=== PATIENT | male | born 1945 | race Caucasian/White ===

== ENCOUNTER → 2022-03-12 15:31 | Outpatient (BNVA) | payer MEDICARE, BC, SELFPAY | PROVIDERS: PCP Internal Medicine; Visit Provider Urology | DX: C67.9 Malignant neoplasm of bladder, unspecified (principal); N39.0 Urinary tract infection, site not specified; Z90.6 Acquired absence of other parts of urinary tract; Z09 Encounter for follow-up examination after completed treatment for conditions other than malignant neoplasm; F17.210 Nicotine dependence, cigarettes, uncomplicated | CPT/HCPCS: 99212 ==

== ENCOUNTER 2023-03-10 10:40 | Outpatient (AMB) | payer MEDICARE, BC, SELFPAY ==
--- NOTE | 2023-03-10 10:42 | A.OFFVIS_ITS ---
Intake Intake Visit Reasons: one year follow up Intake Note: Patient presents today for a 1 year follow-up: Meds- None Allergies to Antibiotic- No Known Allergies Blood Thinner- None Knot Tier Required: No Accompanied by: Self / Same As Patient Allergies No Known Allergies Allergy (Verified 03/10/23 10:43) HPI HPI Comments History of Present Illness Details Jose D is a very pleasant male. He is a patient of Dr. Horan. He is seen for the following urologic conditions - bladder cancer - recurrent pyelonephritis Yearly follow-up Episode of pyelonephritis in August Represcribed ciprofloxacin Stoma looks pink and effective Obtain renal ultrasound next year Bladder cancer - cystectomy 2014 cystectomy for high-grade bladder c ancer PSA 11/06 <0.1, 10/09 <0.1 Stoma looks pink and extended Minimal issues with care Still smoking Main problem is pyelonephritis which occurs every 12 months also Typically responsive to Bactrim Last time month ciprofloxacin Refill medications PFSH Surgical History (Updated 03/10/23 @ 10:56 by LUIS ANTONIO Martinez) Hx of parotidectomy Social History (Updated 03/10/23 @ 10:51 by LUIS ANTONIO Martinez) Patient Tobacco Use Status: Current everyday Tobacco user Tobacco use type: Cigarette Review of Systems Const Denies chills and Denies fever(s) Card Reports no additional complaints and Denies syncope Resp Denies cough GI Denies abdominal pain and Denies heartburn Reports as per HPI and Denies change in libido Neuro Denies syncope Psych Denies change in libido Endo Denies change in libido Physical Exam Const General: cooperative, healthy appearing, comfortable and no acute distress Orientation/consciousness: patient oriented x3 HEENT Face and sinus: Yes normal facial exam Mouth: moist mucous membranes Neck Neck: Yes normal visual inspection, Yes full ROM and Yes trachea midline Chest Chest palpation & inspection: normal inspection of the chest Resp Effort & Inspection: normal respiratory effort, able to speak in complete sentences and no respiratory distress GI Inspection: Yes normal to inspection Back/Spine/Pelvis Cervical Spine: normal cervical lordosis Thoracic/Lumbar Spine: thoracic and lumbar spine normal to inspection Skin General skin exam: no rashes or lesions noted Neuro General: patient oriented x3, gait normal, tone normal and moves all extremities Extrem General: Yes normal to inspection and Yes capillary refill normal Assessment & Plan Assessment & Plan (1) Complicated urinary tract infection: Code(s): N39.0 - Urinary tract infection, site not specified Plan Twelve month follow-up Orders: Orders US renal BI 364 Days C67.9 - Malignant neoplasm of bladder, unspecified Medications: New ciprofloxacin HCl 250 mg PO BID 10 tabs 0RF 5 days N39.0 - Urinary tract infection, site not specified Patient Instructions: Imaging studies, laboratory and physical exam results were discussed and reviewed in detail. No major barriers to patient understanding were identified. An opportunity to ask questions regarding the treatment plan was provided. All questions were answered. The patient expressed understanding and agreement with the above treatment plan. The patient is aware they should contact our office by phone for worsening of th eir current condition or the appearance of new urologic symptoms. Compliance is encouraged with any medications and followup testing that is ordered. It is a privilege to participate in the urologic care of your patient. If you have any questions or concerns regarding treatment for the above conditions, or other urologic issues, please do not hesitate to contact me. The office telephone contact is [phone]. This note is constructed using voice recognition software. While every effort has been made to ensure accuracy boom tender errors may have been included. Yours sincerely, Dr Brien Del Valle MD, [facility] - Urology Providers of Expert, Compassionate Care for the Genitourinary System Coding Level of Care Code Est Pt Level 4 (32401) Diagnoses Complicated urinary tract infection N39.0
== END 2023-03-10 11:13 | disposition home or self-care (01) ==
PROVIDERS: Visit Provider Urology
DX: N39.0 Urinary tract infection, site not specified (principal)
CPT/HCPCS: 99213

== ENCOUNTER → 2023-03-10 10:40 | Outpatient (BNVA) | payer MEDICARE, BC, SELFPAY | PROVIDERS: Visit Provider Urology | DX: N39.0 Urinary tract infection, site not specified (principal) | CPT/HCPCS: 99212 ==

== ENCOUNTER 2024-02-20 09:20 | Outpatient (REF) | payer MEDICARE, BC, SELFPAY | END 2024-02-20 09:21 | disposition home or self-care (01) | LOC: HO.US 09:20 | PROVIDERS: PCP Internal Medicine; Visit Provider Urology | DX: C67.9 Malignant neoplasm of bladder, unspecified (principal) | CPT/HCPCS: 76775 ==

== ENCOUNTER 2024-03-09 10:45 | Outpatient (AMB) | payer MEDICARE, BC, SELFPAY ==
--- NOTE | 2024-03-09 10:48 | A.OFFVIS_ITS ---
Intake Visit Reasons: 1y/US Intake Note: Patient presents today for a 1 year follow-up/US Meds- ATROVASTATIN,AMLODIPINE Allergies to Antibiotic- No Known Allergies Blood Thinner- None [employer] Required: No Accompanied by: Self / Same As Patient Allergies No Known Allergies Allergy (Verified 03/09/24 10:49) HPI Comments Details: Jose D is a very pleasant male. He is a patient of Dr. Horan. He is seen for the following urologic conditions - bladder cancer - recurrent pyelonephritis Yearly follow-up No episodes of infection Still has ciprofloxacin Stoma looks pink and effective Bladder cancer - cystectomy 2014 cystectomy for high-grade bladder cancer PSA 11/06 <0.1, 10/09 <0.1 Stoma looks pink and extended Minimal issues with care Still smoking Imaging - 03/13 renal ultrasound cysts on right kidney otherwise no hydronephrosis Main problem is pyelonephritis which occurs every 12 months also Typically responsive to Bactrim [facility] Surgical History (Updated 03/10/23 @ 10:56 by LUIS ANTONIO Martinez) Hx of parotidectomy Social History (Updated 03/10/23 @ 10:51 by LUIS ANTONIO Martinez) Patient Tobacco Use Status: Current everyday Tobacco user Tobacco use type: Cigarette Review of Systems Const Denies chills and Denies fever(s) Card Reports no additional complaints and Denies syncope Resp Denies cough GI Denies abdominal pain and Denies heartburn Reports as per HPI and Denies change in libido Neuro Denies syncope Psych Denies change in libido Endo Denies change in libido Physical Exam Const General: cooperative, healthy appearing, comfortable and no acute distress Orientation/consciousness: patient oriented x3 HEENT Face and sinus: Yes normal facial exam Mouth: moist mucous membranes Neck Neck: Yes normal visual inspection, Yes full ROM and Yes trachea midline Chest Chest palpation & inspection: normal inspection of the chest Resp Effort & Inspection: normal respiratory effort, able to speak in complete sentences and no respiratory distress GI Inspection: Yes normal to inspection Back/Spine/Pelvis Cervical Spine: normal cervical lordosis Thoracic/Lumbar Spine: thoracic and lumbar spine normal to inspection Skin General skin exam: no rashes or lesions noted Neuro General: patient oriented x3, gait normal, tone normal and moves all extremities Extrem General: Yes normal to inspection and Yes capillary refill normal Assessment & Plan Assessment & Plan (1) Bladder cancer: Comment: Cystectomy 2014 Code(s): C67.9 - Malignant neoplasm of bladder, unspecified Category: Medical (2) Presence of urostomy: Code(s): Z93.6 - Other artificial openings of urinary tract status Category: Medical Plan Twelve month follow-up Patient Instructions: Imaging studies, laboratory and physical exam results were discussed and reviewed in detail. No major barriers to patient understanding were identified. An opportunity to ask questions regarding the treatment plan was provided. All questions were answered. The patient expressed understanding and agreement with the above treatment plan. The patient is aware they should contact our office by phone for worsening of their current condition or the appearance of new urologic symptoms. Compliance is encouraged with any medications and followup testing that is ordered. It is a privilege to participate in the urologic care of your patient. If you have any questions or concerns regarding treatment for the above conditions, or other urologic issues, please do not hesitate to contact me. The office telephone contact is [phone]. This note is constructed using voice recognition software. While every effort has been made to ensure accuracy corporate strategist errors may have been included. Yours sincerely, Dr Brien Del Valle MD, [facility] - Urology Providers of Expert, Compassionate Care for the Genitourinary System Coding Level of Care Code Est Pt Level 4 (42679) Diagnoses Bladder cancer C67.9 Presence of urostomy Z93.6
--- OUTSIDE RECORDS SUMMARY | 2024-03-09 11:10 | XMS_ITS | Continuity of Care Document ---
Author Name [facility] Organization [facility] Care Team Providers Care Head Porter Name Role Phone [facility] Unavailable Unavailable Problems Combined list of problems from Department of Defense and Veterans Affairs facilities. It does not include entries that were removed or entered in error. Problem Status Onset Date Problem Type Date of Resolution Comments Source Alcohol abuse Active Condition Feb Entered By: MARICRUZ BARBOSA Comment: drinks 4-5 beers/daily [place] Aortic valve stenosis Active Condition Dec 02, 2022 Entered By: QUETA LARKIN Comment: echo 11/2022 in [facility] Bilateral hearing loss Active Condition [facility] Carotid artery stenosis Active Condition Mar 24, 2019 Entered By: QUETA LARKIN Comment: s/p left carotid endarderectomy 10/06 dr roman diasAjoe 2019 Entered By: QUETA LARKIN Comment: carotid duplex 10/12/19 scanned into [facility] 2019 Entered By: QUETA LARKIN Comment: inpt carotid dopplers 12/2019 scanned into [facility] 2023 Entered By: MARICRUZ BARBOSA Comment: sees vascular surgery [place] Computed tomography result abnormal Active Condition Mar 03, 2024 Entered By: MARICRUZ BARBOSA Comment: CT abd/pelvis scanned into [facility] 2023 Entered By: MARICRUZ BARBOSA Comment: CT chest 10/2017 scanned into [facility] Erectile dysfunction Active Condition [facility] Essential hypertension Active Condition [place] Exposure to potentially hazardous substance ([facility] [id number]) Active Condition Mar 07 Entered By: LISA WALKER Comment: Entered automatically through [facility] Problem List documentation program [facility] Gastroesophageal reflux disease Active Condition [facility] LOGFIEL D H/O: malignant neoplasm of bladder Active Condition Mar 05, 2024 Entered By: MARICRUZ BARBOSA Comment: s/p full bladder removal, urostomy placed [facility] [facility] History of malignant neoplasm of prostate Active Condition Jun 23, 2015 Entered By: QUETA LARKIN Comment: s/p prostatectomy in 2000 [place] Hyperlipidemia Active Condition [facility] [place] Multiple pulmonary nodules Active Condition Mar 03, 2024 Entered By: MARICRUZ BARBOSA Comment: 12/26/23 LDCT - stable [facility] Osteoporosis Active Condition Mar 03, 2024 Entered By: MARICRUZ BARBOSA Comment: 05/06/23 [facility] 2023 Entered By: MARICRUZ BARBOSA Comment: on Vitamin DDec 2023 Entered By: MARICRUZ BARBOSA Comment: no fractures [facility] PTSD - Post-traumatic stress disorder Active Condition [facility] Pulmonary emphysema Active Condition [facility] Tinnitus Active Condition [place] Under care of multiple providers Active Condition Mar 03 Entered By: MARICRUZ BARBOSA Comment: Ophthalmology Dr. 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 2023 Entered By: MARICRUZ BARBOSA Comment: s/p excision [place] Bladder fistula Inactive Condition 03/03/2024 [facility] [place] [facility] Chest pain Inactive Condition 03/03/2024 Jan 16, 2020 Entered By: QUETA LARKIN Comment: negative myocardia; perfusion scan 12/2019 scanned into [facility] Diagnosis: ICD-10-CM Z12.2 Encntr screen for malignant neoplasm of respiratory organs Active Diagnosis [facility] [place] [facility] Diagnosis: ICD-10-CM L03.311 Cellulitis of abdominal wall Active Diagnosis [facility] Diagnosis: ICD-10-CM L03.90 Cellulitis, unspecified Active Diagnosis [place] Diagnosis: ICD-10-CM I10 Essential (primary) hypertension Active Diagnosis [place] Diagnosis: ICD-10-CM R22.0 Localized swelling, mass and lump, head Active Diagnosis [place] Diagnosis: ICD-10-CM I35.0 Nonrheumatic aortic (valve) stenosis Active Diagnosis [facility] [place] [facility] Diagnosis: ICD-10-CM I49.8 Other specified cardiac arrhythmias Active Diagnosis [facility] Diagnosis: ICD-10-CM Z01.818 Encounter for other preprocedural examination Active Diagnosis [place] Medications Combined list of outpatient medications from Department of Defense and Veterans Affairs facilities.Medications provided include 1) outpatient medications from the last 15 months, and 2) patient-reported medications. Medication Details Route Status Patient Instructions Prescription Expires Prescription Number Last Dispense Date Ordering Provider Order Date Order Qty Source AMLODIPINE BESYLATE 10MG TAB TAKE ONE TABLET BY MOUTH ONCE DAILY FOR BLOOD PRESSURE /HEART, DO NOT TAKE WITH GRAPEFRU IT JUICE ORAL SUSPEND ED 03/06/2025 [id number] Annie BARBOSA 2024 90 [facility] AMLODIPINE BESYLATE 10MG TAB TAKE ONE TABLET BY MOUTH ONCE DAILY FOR BLOOD PRESSURE /HEART, DO NOT TAKE WITH GRAPEFRU IT JUICE ORAL DISCONT INUED 05/31/2024 [id number] Pacheco DE OLIVEIRA 2023 90 [facility] IELD AMLODIPINE BESYLATE 10MG TAB TAKE ONE TABLET BY MOUTH ONCE DAILY FOR BLOOD PRESSURE /HEART, DO NOT TAKE WITH GRAPEFRU IT JUICE ORAL DISCONT INUED 10/22/2023 [id number] RODNEY LARKIN 2022 90 [facility] [place] ASPIRIN 81MG TAB,EC TAKE ONE TABLET BY MOUTH ONCE DAILY TO PREVENT STROKE/H EART ATTACK ORAL ACTIVE 05/31/2024 [id number] Pacheco DE OLIVEIRA 2023 120 [facility] [place] ASPIRIN 81MG TAB,EC TAKE ONE TABLET BY MOUTH ONCE DAILY TO PREVENT STROKE/H EART ATTACK ORAL DISCONT INUED 04/09/2023 [id number] RODNEY LARKIN 2022 120 [facility] IELD ATORVASTATI N CA 40MG TAB TAKE ONE-HALF TABLET BY MOUTH AT BEDTIME FOR CHOLESTE ROL ORAL SUSPEND ED 03/06/2025 [id number] Annie BARBOSA 2024 45 [place] ATORVASTATI N CA 40MG TAB TAKE ONE-HALF TABLET BY MOUTH AT BEDTIME FOR CHOLESTE ROL ORAL DISCONT INUED 05/31/2024 [id number] Pacheco DE OLIVEIRA 2023 45 [place] ATORVASTATI N CA 40MG TAB TAKE ONE-HALF TABLET BY MOUTH AT BEDTIME FOR CHOLESTE ROL ORAL DISCONT INUED 03/03/2024 [id number] RODNEY LARKIN 2022 45 [place] BISACODYL 5MG TAB,EC TAKE TWO TABLETS BY MOUTH ONCE DIRECTED BY PROVIDER AT 6PM ORAL 06/04/2023 [id number] MAG WALESKA DENNISON 2023 2 [facility] CEPHALEXIN 500MG CAP TAKE ONE CAPSULE BY MOUTH TWICE DAILY FOR INFECTIO N ORAL 12/23/2023 [id number] Annie BARBOSA 2023 20 [place] HYDROCORTIS ONE 1% CREAM,TOP APPLY A THIN LAYER TOPICALL Y ONCE DAILY NEEDED FOR ITCHING TOPICA L ACTIVE 09/06/2024 [id number] DANIEL MOBLEY RMEN F 2023 30 [place] LACTOBACILL US ACIDOPHILUS CAP TAKE 1 CAPSULE BY MOUTH TWICE DAILY FOR PROBIOTI C SUPPLEME NTATION ORAL 12/23/2023 [id number] Annie BARBOSA 2023 20 [place] OMEPRAZOLE 20MG CAP,EC TAKE ONE CAPSULE BY MOUTH EVERY MORNING 30 MINUTES BEFORE BREAKFAS T ORAL ACTIVE 03/06/2025 [id number] Annie BARBOSA 2023 90 [place] OMEPRAZOLE 20MG CAP,EC TAKE ONE CAPSULE BY MOUTH EVERY MORNING 30 MINUTES BEFORE BREAKFAS T ORAL DISCONT INUED 01/11/2025 [id number] DANIEL MOBLEY HEATHER F 2023 30 [place] OMEPRAZOLE 20MG CAP,EC TAKE ONE CAPSULE BY MOUTH EVERY MORNING 30 MINUTES BEFORE BREAKFAS T ORAL DISCONT INUED 04/06/2024 [id number] TRAERODNEY ANDERSENE 2023 90 [place] OMEPRAZOLE 20MG CAP,EC TAKE ONE CAPSULE BY MOUTH EVERY MORNING 30 MINUTES BEFORE BREAKFAS T ORAL DISCONT INUED 04/09/2023 [id number] TRAERODNEY ANDERSEN LUZ MARINA 2022 90 [place] PEG-3350/EL ECTROLYTES PWDR TAKE CONTENTS OF BOTTLE BY MOUTH ONCE ACCORDIN G TO INSTRUCT IONS FROM PRESCRIB ER - DISSOLVE CONTENTS BEFORE DRINKING . STARTING AT 6PM THE NIGHT BEFORE YOUR PROCEDUR E, DRINK ONE 8 OZ GLASS AT YOUR OWN PACE UNTIL YOUR RECTALS RUN CLEAR ORAL 06/04/2023 [id number] MAG WALESKA DENNISON 2023 1 [facility] SILDENAFIL CITRATE 100MG TAB TAKE ONE TABLET BY MOUTH ONCE DAILY NEEDED FOR ERECTILE DYSFUNCT ION TAKE 1 HOUR PRIOR TO SEXUAL ACTIVITY ORAL ACTIVE 03/06/2025 [id number] Annie BARBSOA 2023 18 [place] SILDENAFIL CITRATE 100MG TAB TAKE ONE TABLET BY MOUTH ONCE DAILY NEEDED FOR ERECTILE DYSFUNCT ION TAKE 1 HOUR PRIOR TO SEXUAL ACTIVITY ORAL DISCONT INUED 05/31/2024 [id number] Pacheco DE OLIVEIRA 2023 4 [place] SILDENAFIL CITRATE 100MG TAB TAKE ONE TABLET BY MOUTH ONCE DAILY NEEDED FOR ERECTILE DYSFUNCT ION TAKE 1 HOUR PRIOR TO SEXUAL ACTIVITY ORAL DISCONT INUED 03/03/2024 [id number] TRAEJENNYAngi RAZA 2022 4 [place] SILDENAFIL CITRATE 100MG TAB TAKE ONE TABLET BY MOUTH ONCE DAILY NEEDED FOR ERECTILE DYSFUNCT ION TAKE 1 HOUR PRIOR TO SEXUAL ACTIVITY ORAL DISCONT INUED 10/22/2023 [id number] RODNEY LARKIN 2022 4 [place] VITAMIN D3 (CHOLECALCI FEROL) TAB TAKE BY MOUTH DAILY ORAL ACTIVE RODNEY LARKIN 2012 [place] Allergies, Adverse Reactions, Alerts Combined list of allergies from Department of Defense and Veterans Affairs facilities. It does not include entries that were removed or entered in error. Substance Category Reaction Severity Reaction type Status Date Reported Comments Source ANTIHYPERT AVNI,OT HER Propensity to adverse reactions to drug (finding) Eruption active 3 [facility] Immunizations Combined list of available immunizations from the Department of Defense and Veterans Affairs facilities. Immunization Series Date Given Administered By Site Reaction Lot Number CVX Code Drug Small Kick Press Operator Status Comments Source INFLUENZA, UNSPECIFIED FORMULATION 2022 88 complet ed [facility] INFLUENZA, UNSPECIFIED FORMULATION 2021 88 complet ed [facility] COVID-19 (MODERNA), MRNA, LNP-S, PF, 100 MCG/0.5ML DOSE OR 50 MCG/0.25ML DOSE 3 2021 207 complet ed [facility] COVID-19 (MODERNA), MRNA, LNP-S, PF, 100 MCG/0.5ML DOSE OR 50 MCG/0.25ML DOSE 3 2020 207 complet ed [facility] INFLUENZA, UNSPECIFIED FORMULATION 2020 88 complet ed [facility] COVID-19 (MODERNA), MRNA, LNP-S, PF, 100 MCG/0.5 ML DOSE 2 2020 207 complet ed MOD; [id number]; 1 [place] COVID-19 (MODERNA), MRNA, LNP-S, PF, 100 MCG/0.5 ML DOSE 1 2020 207 complet ed MOD; [id number]; 1 [place] INFLUENZA, INJECTABLE, QUADRIVALENT, PRESERVATIVE FREE 2019 150 complet ed Site: Left Deltoid [facility] INFLUENZA, INJECTABLE, QUADRIVALENT, PRESERVATIVE FREE 2018 150 complet ed Site: Left Deltoid [place] INFLUENZA, INJECTABLE, QUADRIVALENT 2017 158 complet ed Site: Left Deltoid [place] INFLUENZA, SEASONAL, INJECTABLE 2016 141 complet ed Site: Left Deltoid [place] DTAP 2015 20 complet ed Site: Left Deltoid [place] DTAP, UNSPECIFIED FORMULATION 2015 107 complet ed [place] FLU,3 YRS (HISTORICAL) 2015 88 complet ed Site: Left Deltoid [place] FLU,3 YRS (HISTORICAL) 2014 88 complet ed Site: Left Deltoid [place] FLU,3 YRS (HISTORICAL) 2012 88 complet ed Site: Left Deltoid [place] TD(ADULT) UNSPECIFIED FORMULATION 2005 139 complet ed [facility] [place] Results Combined list of recent chemistry, hematology and other laboratory results from Department of Defense and Veterans Affairs, ranging from 15 months to all on record, depending upon the facility. Order Name Results Value Reference Range Date Interpretation Specimen Comments Source LIPID PANEL FASTING CHOLESTERO L [MASS/VOLU ME] IN SERUM OR PLASMA 164 mg/dL 03/01 Specimen Type: SERUM No comment entered. Ordering Provider: OBED BARBOSA Report Released Date/Time: Feb 29, 2024 02:28 PM Reporting Lab: [facility] [place] [facility] [address] [facility] [address] Performing Lab: [facility] [place] [facility] [address] [facility] [address] [facility] [place] [facility] LIPID PANEL FASTING TRIGLYCERI DE [MASS/VOLU ME] IN SERUM OR PLASMA 114 mg/dL 0 - 150 03/01 Specimen Type: SERUM No comment entered. Ordering Provider: OBED BARBOSA Report Released Date/Time: Feb 29, 2024 02:28 PM Reporting Lab: [facility] [place] [facility] [address] [facility] [address] Performing Lab: [facility] [address] [facility] [address] [facility] LIPID PANEL FASTING CHOLESTERO L IN LDL [MASS/VOLU ME] IN SERUM OR PLASMA BY CALCULANERISO N 89 mg/dL 0 - 129 03/01 Specimen Type: SERUM No comment entered. Ordering Provider: OBED BARBOSA Report Released Date/Time: Feb 29, 2024 02:28 PM Reporting Lab: [facility] [place] [facility] [address] [facility] [address] Performing Lab: [facility] [place] [facility] [address] [facility] [address] [facility] [place] [facility] LIPID PANEL FASTING CHOLESTERO L.TOTAL/CH OLESTEROL IN HDL [MASS RATIO] IN SERUM OR PLASMA 3.2 03/01 Specimen Type: SERUM No comment entered. Ordering Provider: OBED BARBOSA Report Released Date/Time: Feb 29, 2024 02:28 PM Reporting Lab: [facility] [place] [facility] [address] [facility] [address] Performing Lab: [facility] [place] [facility] [address] [facility] [address] [facility]N [facility] LIPID PANEL FASTING CHOLESTERO L IN HDL [MASS/VOLU ME] IN SERUM OR PLASMA 52 mg/dL 40 - 60 03/01 Specimen Type: SERUM No comment entered. Ordering Provider: OBED BARBOSA Report Released Date/Time: Feb 29, 2024 02:28 PM Reporting Lab: [facility] [place] [facility] [address] [facility] [address] Performing Lab: [facility] [place] [facility] [address] [facility] [address] [facility] [place] [facility] BASIC METABOLI C PANEL (fasting ) UREA NITROGEN [MASS/VOLU ME] IN SERUM OR PLASMA 10 mg/dL 7 - 25 03/01 Specimen Type: SERUM No comment entered. Ordering Provider: OBED BARBOSA Report Released Date/Time: Feb 29, 2024 02:28 PM Reporting Lab: [facility] [place] [facility] [address] [facility] [address] Performing Lab: [facility] [place] [facility] [address] [facility] [address] [facility] [place] [facility] BASIC METABOLI C PANEL (fasting ) GLUCOSE [MASS/VOLU ME] IN SERUM OR PLASMA 105 mg/dL 65 - 100 03/01 H Specimen Type: SERUM No comment entered. Ordering Provider: OBED BARBOSA Report Released Date/Time: Feb 29, 2024 02:28 PM Reporting Lab: [facility] [place] [facility] [address] [facility] [address] Performing Lab: [facility] [address] [facility] [address] [facility] BASIC METABOLI C PANEL (fasting ) SODIUM [MOLES/VOL UME] IN SERUM OR PLASMA 137 mmol/L 135 - 145 03/01 Specimen Type: SERUM No comment entered. Ordering Provider: OBED BARBOSA Report Released Date/Time: Feb 29, 2024 02:28 PM Reporting Lab: [facility] [address] [facility] [address] Performing Lab: [facility]ITALTRN [facility]USE[facility] [address] [facility] [address] [facility]TRN [facility] BASIC METABOLI C PANEL (fasting ) POTASSIUM [MOLES/VOL UME] IN SERUM OR PLASMA 4.6 mmol/L 3.5 - 5.0 03/01 Specimen Type: SERUM No comment entered. Ordering Provider: OBED BARBOSA Report Released Date/Time: Feb 29, 2024 02:28 PM Reporting Lab: [facility] [place] [facility] [address] [facility] [address] Performing Lab: [facility] W[facility]N [facility] [address] [facility] [address] [facility]N [facility] BASIC METABOLI C PANEL (fasting ) CHLORIDE [MOLES/VOL UME] IN SERUM OR PLASMA 103 mmol/L 100 - 110 03/01 Specimen Type: SERUM No comment entered. Ordering Provider: OBED BARBOSA Report Released Date/Time: Feb 29, 2024 02:28 PM Reporting Lab: [facility] [place] [facility] [address] [facility] [address] Performing Lab: [facility] [place] [facility] [address] [facility] [address] [facility] [facility] BASIC METABOLI C PANEL (fasting ) CARBON DIOXIDE, TOTAL [MOLES/VOL UME] IN SERUM OR PLASMA 24 meq/L 20 - 30 03/01 Specimen Type: SERUM No comment entered. Ordering Provider: OBED BARBOSA Report Released Date/Time: Feb 29, 2024 02:28 PM Reporting Lab: [facility] [place] [facility] [address] [facility] [address] Performing Lab: [facility] [place] [address] [address] [facility] BASIC METABOLI C PANEL (fasting ) CREATININE [MASS/VOLU ME] IN SERUM OR PLASMA 0.92 mg/dL 0.50 - 1.40 03/01 Specimen Type: SERUM No comment entered. Ordering Provider: OBED BARBOSA Report Released Date/Time: Feb 29, 2024 02:28 PM Reporting Lab: [facility] [place] [address] [address] Performing Lab: [facility] [address] [address] [facility] [place] [facility] BASIC METABOLI C PANEL (fasting ) GLOMERULAR FILTRATION RATE/1.73 SQ M.PREDICTE D [VOLUME RATE/AREA] IN SERUM, PLASMA OR BLOOD BY CREATININE -BASED FORMULA (CKD-EPI 2020) 86 mL/min 60 03/01 Specimen Type: SERUM No comment entered. Ordering Provider: OBED BARBOSA Report Released Date/Time: Feb 29, 2024 02:28 PM Reporting Lab: [facility] [place] [address] [address] Performing Lab: [facility] [place] [address] [address] [facility] [place] [facility] LIVER FUNCTION PROTEIN [MASS/VOLU ME] IN SERUM OR PLASMA 7.9 g/dL 6.0 - 8.3 03/01 Specimen Type: SERUM No comment entered. Ordering Provider: OBED BARBOSA Report Released Date/Time: Feb 29, 2024 02:28 PM Reporting Lab: [facility] [place] [facility] [address] [facility] [address] Performing Lab: [facility] [place] [facility] [address] [facility] [address] [facility] [place] [facility] LIVER FUNCTION ALBUMIN [MASS/VOLU ME] IN SERUM OR PLASMA 4.0 g/dL 3.5 - 5.0 03/01 Specimen Type: SERUM No comment entered. Ordering Provider: OBED BARBOSA Report Released Date/Time: Feb 29, 2024 02:28 PM Reporting Lab: [facility] [place] [address] [address] Performing Lab: [facility] [place] [address] [address] [facility] [place] [facility] LIVER FUNCTION ALKALINE PHOSPHATAS E [ENZYMATIC ACTIVITY/V OLUME] IN SERUM OR PLASMA 90 U/L 40 - 150 03/01 Specimen Type: SERUM No comment entered. Ordering Provider: OBED BARBOSA Report Released Date/Time: Feb 29, 2024 02:28 PM Reporting Lab: [facility] [place] [address] [address] Performing Lab: [facility] [place] [facility] [address] [facility] [address] [facility] [place] [facility] LIVER FUNCTION ASPARTATE AMINOTRANS FERASE [ENZYMATIC ACTIVITY/V OLUME] IN SERUM OR PLASMA 13 U/L 5 - 34 03/01 Specimen Type: SERUM No comment entered. Ordering Provider: OBED BARBOSA Report Released Date/Time: Feb 29, 2024 02:28 PM Reporting Lab: [facility] [place] [address] [address] Performing Lab: [facility] [address] [facility] [address] [facility] LIVER FUNCTION ALANINE AMINOTRANS FERASE [ENZYMATIC ACTIVITY/V OLUME] IN SERUM OR PLASMA 11 U/L 03/01 Specimen Type: SERUM No comment entered. Ordering Provider: OBED BARBOSA Report Released Date/Time: Feb 29, 2024 02:28 PM Reporting Lab: [facility] [address] [facility] [address] Performing Lab: [address] [address] [facility] LIVER FUNCTION BILIRUBIN. TOTAL [MASS/VOLU ME] IN SERUM OR PLASMA 0.6 mg/dL 0.2 - 1.2 03/01 Specimen Type: SERUM No comment entered. Ordering Provider: OBED BARBOSA Report Released Date/Time: Feb 29, 2024 02:28 PM Reporting Lab: [facility] [address] [facility] [address] Performing Lab: [address] [address] [facility] HEMOGLOB IN A1C PANEL HEMOGLOBIN A1C/HEMOGL OBIN.TOTAL IN BLOOD BY HPLC 5.5 4.0 - 5.6 03/01 Specimen Type: BLOOD Comment: Values obtained from A1C measurement s can vary. For atypical A1C assays, a reported value of 7.0 could actually be between 6.72 and 7.28 if measured by a reference method. A reported value of 9.0 could actually be between 8.73 and 9.27. Ref: http://www. ngsp.org/[place] Pdata.asp Ordering Provider: OBED BARBOSA Report Released Date/Time: Feb 29, 2024 02:28 PM Reporting Lab: [address] [address] Performing Lab: [address] [address] [facility] TSH THYROTROPI N [UNITS/VOL UME] IN SERUM OR PLASMA 1.80 u[IU]/mL 0.35 - 5.00 03/01 Specimen Type: SERUM No comment entered. Ordering Provider: OBED BARBOSA Report Released Date/Time: Feb 29, 2024 02:28 PM Reporting Lab: [facility] [place] [address] [address] Performing Lab: [facility] [place] [facility] [address] [facility] [address] [facility] [place] [facility] MICROALB UMIN CREATINI NE RATIO PANEL MICROALBUM IN/CREATIN INE [MASS RATIO] IN URINE 361.0 mg/g 0 - 29.9 03/01 H Specimen Type: URINE No comment entered. Ordering Provider: OBED BARBOSA Report Released Date/Time: Feb 29, 2024 02:28 PM Reporting Lab: [facility] [place] [address] [address] Performing Lab: [facility] [place] [address] [address] [facility] [place] [facility] MICROALB UMIN CREATINI NE RATIO PANEL MICROALBUM IN [MASS/VOLU ME] IN URINE 25.8 mg/dL 03/01 Specimen Type: URINE No comment entered. Ordering Provider: OBED BARBOSA Report Released Date/Time: Feb 29, 2024 02:28 PM Reporting Lab: [facility] [place] [address] [address] Performing Lab: [facility] [place] [address] [address] [facility] [place] [facility] MICROALB UMIN CREATINI NE RATIO PANEL CREATININE [MASS/VOLU ME] IN URINE 71.47 mg/dL 03/01 Specimen Type: URINE No comment entered. Ordering Provider: OBED BARBOSA Report Released Date/Time: Feb 29, 2024 02:28 PM Reporting Lab: [facility] [place] [address] [place] [address] Performing Lab: [facility] [place] [facility] [address] [facility] [address] [facility] [place] [facility] MICROSCO PIC AUTOMATE D, URINE LEUKOCYTES [#/AREA] IN URINE SEDIMENT BY MICROSCOPY HIGH POWER FIELD 6-10/[HP F] 0 - 5 03/01 H Specimen Type: URINE Comment: If Glucose = >500 and Ketones are positive, please alert the Physician. Ordering Provider: OBED BARBOSA Report Released Date/Time: Feb 29, 2024 02:28 PM Reporting Lab: [facility] [place] [facility] [address] [facility] [address] Performing Lab: [facility] [place] [address] [address] [facility] [place] [facility] [place] PIC AUTOMATE D, URINE BACTERIA [#/AREA] IN URINE SEDIMENT BY MICROSCOPY HIGH POWER FIELD 1+/[HPF] 03/01 Specimen Type: URINE Comment: If Glucose = >500 and Ketones are positive, please alert the Physician. Ordering Provider: OBED BARBOSA Report Released Date/Time: Feb 29, 2024 02:28 PM Reporting Lab: [facility] [facility] [place] [facility] [address] [facility] [address] Performing Lab: [facility] [place] [address] [facility] [address] [facility] [place] [facility] MICROSCO PIC AUTOMATE D, URINE MUCUS [#/AREA] IN URINE SEDIMENT BY MICROSCOPY LOW POWER FIELD FEW/[LPF ] 03/01 Specimen Type: URINE Comment: If Glucose = >500 and Ketones are positive, please alert the Physician. Ordering Provider: OBED BARBOSA Report Released Date/Time: Feb 29, 2024 02:28 PM Reporting Lab: [facility] [place] [facility] [address] [facility] [address] Performing Lab: [place] [facility] [place] [address] [address] [facility] [place] [facility] [place] PIC AUTOMATE D, URINE ERYTHROCYT ES [#/AREA] IN URINE SEDIMENT BY MICROSCOPY HIGH POWER FIELD 3-5/[HPF ] 0 - 3 03/01 Specimen Type: URINE Comment: If Glucose = >500 and Ketones are positive, please alert the Physician. Ordering Provider: OBED BARBOSA Report Released Date/Time: Feb 29, 2024 02:28 PM Reporting Lab: [facility] [place] [facility] [address] [facility] [address] Performing Lab: [facility] [place] [facility] [address] [facility] [address] [facility] [place] [facility] [place] P[place] AUTOMATE D, URINE LEUKOCYTE CLUMPS [#/VOLUME] IN URINE BY AUTOMATED COUNT PRESENT/ [HPF] 03/01 Specimen Type: URINE Comment: If Glucose = >500 and Ketones are positive, please alert the Physician. Ordering Provider: OBED BARBOSA Report Released Date/Time: Feb 29, 2024 02:28 PM Reporting Lab: [facility] [place] [facility] [address] [facility] [address] Performing Lab: [facility] [place] [facility] [address] [facility] [address] [facility] CBC AND DIFF (AUTO) LEUKOCYTES [#/VOLUME] IN BLOOD BY AUTOMATED COUNT 15.13 10*3/uL 4.50 - 11.00 03/01 H Specimen Type: BLOOD No comment entered. Ordering Provider: OBED BARBOSA Report Released Date/Time: Feb 29, 2024 02:28 PM Reporting Lab: [facility] [place] [facility] [address] [facility] [address] Performing Lab: [place] [facility] [place] [address] [address] [facility] CBC AND DIFF (AUTO) ERYTHROCYT ES [#/VOLUME] IN BLOOD BY AUTOMATED COUNT 5.01 10*6/uL 4.23 - 5.66 03/01 Specimen Type: BLOOD No comment entered. Ordering Provider: OBED BARBOSA Report Released Date/Time: Feb 29, 2024 02:28 PM Reporting Lab: [facility] [place] [address] [facility] [address] Performing Lab: [facility] [place] [facility] [address] [facility] [address] [facility] [place] [facility] CBC AND DIFF (AUTO) HEMOGLOBIN [MASS/VOLU ME] IN BLOOD 16.3 g/dL 12.8 - 17 03/01 Specimen Type: BLOOD No comment entered. Ordering Provider: OBED BARBOSA Report Released Date/Time: Feb 29, 2024 02:28 PM Reporting Lab: [facility] [place] [facility] [address] [facility] [address] Performing Lab: [facility] [place] [facility] [address] [facility] [address] [facility] [place] [facility] CBC AND DIFF (AUTO) HEMATOCRIT [VOLUME FRACTION] OF BLOOD BY AUTOMATED COUNT 46.3 39.2 - 50.4 03/01 Specimen Type: BLOOD No comment entered. Ordering Provider: OBED BARBOSA Report Released Date/Time: Feb 29, 2024 02:28 PM Reporting Lab: [facility] [place] [facility] [address] [facility] [address] Performing Lab: [facility] [place] [facility] [address] [facility] [address] [facility] [place] [facility] CBC AND DIFF (AUTO) MCV [ENTITIC VOLUME] BY AUTOMATED COUNT 92.4 fL 82 - 99 03/01 Specimen Type: BLOOD No comment entered. Ordering Provider: OBED BARBOSA Report Released Date/Time: Feb 29, 2024 02:28 PM Reporting Lab: [facility] [place] [facility] [address] [facility] [address] Performing Lab: [facility] [place] [facility] [address] [facility] [address] [facility] [place] [facility] CBC AND DIFF (AUTO) MCHC [MASS/VOLU ME] BY AUTOMATED COUNT 35.2 g/dL 30.8 - 35.1 03/01 H Specimen Type: BLOOD No comment entered. Ordering Provider: OBED BARBOSA Report Released Date/Time: Feb 29, 2024 02:28 PM Reporting Lab: [facility] [place] [facility] [address] [facility] [address] Performing Lab: [facility] [place] [facility] [address] [facility] [address] [facility] CBC AND DIFF (AUTO) PLATELETS [#/VOLUME] IN BLOOD BY AUTOMATED COUNT 316 10*3/uL 140 - 360 03/01 Specimen Type: BLOOD No comment entered. Ordering Provider: OBED BARBOSA Report Released Date/Time: Feb 29, 2024 02:28 PM Reporting Lab: [facility] [place] [address] [facility] [address] Performing Lab: [facility] [place] [address] [address] [facility] CBC AND DIFF (AUTO) ERYTHROCYT E DISTRIBUTI ON WIDTH [RATIO] BY AUTOMATED COUNT 12.7 12.0 - 16.0 03/01 Specimen Type: BLOOD No comment entered. Ordering Provider: OBED BARBOSA Report Released Date/Time: Feb 29, 2024 02:28 PM Reporting Lab: [facility] [place] [facility] [address] [facility] [address] Performing Lab: [facility] [place] [facility] [address] [facility] [address] [facility] CBC AND DIFF (AUTO) MONOCYTES [#/VOLUME] IN BLOOD BY AUTOMATED COUNT 1.43 10*3/uL 0.30 - 1.10 03/01 H Specimen Type: BLOOD No comment entered. Ordering Provider: OBED BARBOSA Report Released Date/Time: Feb 29, 2024 02:28 PM Reporting Lab: [facility] [place] [facility] [address] [facility] [address] Performing Lab: [facility] [address] [place] [address] [facility] CBC AND DIFF (AUTO) MCH [ENTITIC MASS] BY AUTOMATED COUNT 32.5 pg 26.2 - 32.6 03/01 Specimen Type: BLOOD No comment entered. Ordering Provider: OBED BARBOSA Report Released Date/Time: Feb 29, 2024 02:28 PM Reporting Lab: [facility] [address] [place] [address] Performing Lab: [facility] [place] [facility] [address] [facility] [address] [facility] CBC AND DIFF (AUTO) NEUTROPHIL S/100 LEUKOCYTES IN BLOOD BY AUTOMATED COUNT 67.0 43.7 - 75.8 03/01 Specimen Type: BLOOD No comment entered. Ordering Provider: OBED BARBOSA Report Released Date/Time: Feb 29, 2024 02:28 PM Reporting Lab: [facility] [place] [address] [address] Performing Lab: [facility] [place] [address] [address] [facility] [place] CBC AND DIFF (AUTO) LYMPHOCYTE S/100 LEUKOCYTES IN BLOOD BY AUTOMATED COUNT 17.1 14.0 - 42.3 03/01 Specimen Type: BLOOD No comment entered. Ordering Provider: OBED BARBOSA Report Released Date/Time: Feb 29, 2024 02:28 PM Reporting Lab: [facility] [place] [address] [address] Performing Lab: [facility] [place] [facility] [address] [facility] [address] [facility] [place] CBC AND DIFF (AUTO) MONOCYTES/ 100 LEUKOCYTES IN BLOOD BY AUTOMATED COUNT 9.5 5.1 - 13.7 03/01 Specimen Type: BLOOD No comment entered. Ordering Provider: OBED BARBOSA Report Released Date/Time: Feb 29, 2024 02:28 PM Reporting Lab: [facility] [place] [address] [address] Performing Lab: [facility] [place] [facility] [address] [facility] [address] [facility] [place] CBC AND DIFF (AUTO) EOSINOPHIL S/100 LEUKOCYTES IN BLOOD BY AUTOMATED COUNT 5.0 0.4 - 6.8 03/01 Specimen Type: BLOOD No comment entered. Ordering Provider: OBED BARBOAS Report Released Date/Time: Feb 29, 2024 02:28 PM Reporting Lab: [facility] [place] [facility] [address] [facility] [address] Performing Lab: [facility] [place] [facility] [address] [facility] [address] [facility] [place] [facility] CBC AND DIFF (AUTO) BASOPHILS/ 100 LEUKOCYTES IN BLOOD BY AUTOMATED COUNT 0.7 0.1 - 2.0 03/01 Specimen Type: BLOOD No comment entered. Ordering Provider: OBED BARBOSA Report Released Date/Time: Feb 29, 2024 02:28 PM Reporting Lab: [facility] [place] [address] [address] Performing Lab: [facility] [place] [address] [address] [place] [facility] [place] [facility] CBC AND DIFF (AUTO) NEUTROPHIL S [#/VOLUME] IN BLOOD BY AUTOMATED COUNT 10.15 10*3/uL 2.20 - 7.60 03/01 H Specimen Type: BLOOD No comment entered. Ordering Provider: OBED BARBOSA Report Released Date/Time: Feb 29, 2024 02:28 PM Reporting Lab: [facility] [place] [facility] [address] [facility] [address] Performing Lab: [facility] [facility] [address] [place] [address] [facility] CBC AND DIFF (AUTO) LYMPHOCYTE S [#/VOLUME] IN BLOOD BY AUTOMATED COUNT 2.59 10*3/uL 1.00 - 3.20 03/01 Specimen Type: BLOOD No comment entered. Ordering Provider: OBED BARBOSA Report Released Date/Time: Feb 29, 2024 02:28 PM Reporting Lab: [facility] [place] [facility] [address] [facility] [address] Performing Lab: [facility] [place] [facility] [address] [facility] [address] [facility] [place] CBC AND DIFF (AUTO) EOSINOPHIL S [#/VOLUME] IN BLOOD BY AUTOMATED COUNT 0.75 10*3/uL 0.03 - 0.44 03/01 H Specimen Type: BLOOD No comment entered. Ordering Provider: OBED BARBOSA Report Released Date/Time: Feb 29, 2024 02:28 PM Reporting Lab: [facility] [place] [facility] [address] [facility] [address] Performing Lab: [facility] [place] [facility] [address] [facility] [address] [facility] [place] CBC AND DIFF (AUTO) BASOPHILS [#/VOLUME] IN BLOOD BY AUTOMATED COUNT 0.10 10*3/uL 0.01 - 0.13 03/01 Specimen Type: BLOOD No comment entered. Ordering Provider: OBED BARBOSA Report Released Date/Time: Feb 29, 2024 02:28 PM Reporting Lab: [facility] [place] [facility] [address] [facility] [address] Performing Lab: [facility] [place] [facility] [address] [facility] [address] [facility] CBC AND DIFF (AUTO) IMMATURE GRANULOCYT ES/100 LEUKOCYTES IN BLOOD BY AUTOMATED COUNT 0.7 0.0 - 0.7 03/01 Specimen Type: BLOOD No comment entered. Ordering Provider: OBED BARBOSA Report Released Date/Time: Feb 29, 2024 02:28 PM Reporting Lab: [facility] [place] [facility] [address] [facility] [address] Performing Lab: [facility] [place] [facility] [address] [facility] [address] [facility] [place] CBC AND DIFF (AUTO) IMMATURE GRANULOCYT ES [#/VOLUME] IN BLOOD 0.11 10*3/uL 0.00 - 0.06 03/01 H Specimen Type: BLOOD No comment entered. Ordering Provider: OBED BARBOSA Report Released Date/Time: Feb 29, 2024 02:28 PM Reporting Lab: [facility] [place] [facility] [address] [facility] [address] Performing Lab: [facility] [place] [address] [address] [facility] [place] [facility] CBC AND DIFF (AUTO) NRBC % 0.0 0.0 - 0.0 03/01 Specimen Type: BLOOD No comment entered. Ordering Provider: OBED BARBOSA Report Released Date/Time: Feb 29, 2024 02:28 PM Reporting Lab: [facility] [place] [address] [address] Performing Lab: [place] [facility] [place] [address] [address] [facility] [place] [facility] CBC AND DIFF (AUTO) NRBC, ABS 0.00 10*3/uL 0.00 - 0.00 03/01 Specimen Type: BLOOD No comment entered. Ordering Provider: OBED BARBOSA Report Released Date/Time: Feb 29, 2024 02:28 PM Reporting Lab: [facility] [place] [address] [address] Performing Lab: [facility] [place] [address] [address] [facility] [place] [facility] URINALYS IS COLOR OF URINE Light-Ye llow 03/01 Specimen Type: URINE Comment: If Glucose = >500 and Ketones are positive, please alert the Physician. Ordering Provider: OBED BARBOSA Report Released Date/Time: Feb 29, 2024 02:28 PM Reporting Lab: [facility] [place] [address] [address] Performing Lab: [facility] [place] [address] [address] [facility] URINALYS IS APPEARANCE OF URINE Turbid 03/01 Specimen Type: URINE Comment: If Glucose = >500 and Ketones are positive, please alert the Physician. Ordering Provider: OBED BARBOSA Report Released Date/Time: Feb 29, 2024 02:28 PM Reporting Lab: [facility] [place] [facility] [address] [facility] [address] Performing Lab: [place] [facility] [place] [address] [address] [facility] [place] [facility] URINALYS IS GLUCOSE [MASS/VOLU ME] IN URINE Normalmg /dL 03/01 Specimen Type: URINE Comment: If Glucose = >500 and Ketones are positive, please alert the Physician. Ordering Provider: OBED BARBOSA Report Released Date/Time: Feb 29, 2024 02:28 PM Reporting Lab: [facility] [place] [address] [address] Performing Lab: [facility] [place] [facility] [address] [facility] [address] [facility] [place] [facility] URINALYS IS KETONES [MASS/VOLU ME] IN URINE BY TEST STRIP NEGATIVE mg/dL 03/01 Specimen Type: URINE Comment: If Glucose = >500 and Ketones are positive, please alert the Physician. Ordering Provider: OBED BARBOSA Report Released Date/Time: Feb 29, 2024 02:28 PM Reporting Lab: [facility] [place] [facility] [address] [facility] [address] Performing Lab: [place] [facility] [place] [facility] [address] [facility] [address] [facility] [place] [facility] URINALYS IS ERYTHROCYT ES [PRESENCE] IN URINE SEDIMENT BY LIGHT MICROSCOPY NEGATIVE mg/dL 03/01 Specimen Type: URINE Comment: If Glucose = >500 and Ketones are positive, please alert the Physician. Ordering Provider: OBED BARBOSA Report Released Date/Time: Feb 29, 2024 02:28 PM Reporting Lab: [facility] [place] [address] [address] Performing Lab: [facility] [place] [facility] [address] [facility] [address] [facility] [place] [facility] URINALYS IS PROTEIN [MASS/VOLU ME] IN URINE BY TEST STRIP 50 mg/dL 03/01 Specimen Type: URINE Comment: If Glucose = >500 and Ketones are positive, please alert the Physician. Ordering Provider: OBED BARBOSA Report Released Date/Time: Feb 29, 2024 02:28 PM Reporting Lab: [facility] [place] [facility] [address] [facility] [address] Performing Lab: [facility] [place] [facility] [address] [facility] [address] [facility] [facility] URINALYS IS NITRITE [PRESENCE] IN URINE POSITIVE mg/dL 03/01 Specimen Type: URINE Comment: If Glucose = >500 and Ketones are positive, please alert the Physician. Ordering Provider: OBED BARBOSA Report Released Date/Time: Feb 29, 2024 02:28 PM Reporting Lab: [facility] [place] [facility] [address] [facility] [address] Performing Lab: [facility] [place] [facility] [address] [facility] [address] [facility] URINALYS IS BILIRUBIN. TOTAL [PRESENCE] IN URINE NEGATIVE mg/dL 03/01 Specimen Type: URINE Comment: If Glucose = >500 and Ketones are positive, please alert the Physician. Ordering Provider: OBED BARBOSA Report Released Date/Time: Feb 29, 2024 02:28 PM Reporting Lab: [facility] [place] [facility] [address] [facility] [address] Performing Lab: [facility] [place] [facility] [address] [facility] [address] [facility] URINALYS IS SPECIFIC GRAVITY OF URINE BY REFRACTOME TRY 1.011 1.016 - 1.022 03/01 L Specimen Type: URINE Comment: If Glucose = >500 and Ketones are positive, please alert the Physician. Ordering Provider: OBED BARBOSA Report Released Date/Time: Feb 29, 2024 02:28 PM Reporting Lab: [facility] [place] [facility] [address] [facility] [address] Performing Lab: [facility] [place] [facility] [address] [facility] [address] [facility] [place] [facility] URINALYS IS PH OF URINE BY TEST STRIP 7.0 5.0 - 9.0 03/01 Specimen Type: URINE Comment: If Glucose = >500 and Ketones are positive, please alert the Physician. Ordering Provider: OBED BARBOSA Report Released Date/Time: Feb 29, 2024 02:28 PM Reporting Lab: [facility] [place] [facility] [address] [facility] [address] Performing Lab: [facility] [place] [facility] [address] [facility] [address] [facility] [place] [facility] URINALYS IS UROBILINOG EN [MASS/VOLU ME] IN URINE BY TEST STRIP Normalmg /dL <2.0 - 2.0 03/01 Specimen Type: URINE Comment: If Glucose = >500 and Ketones are positive, please alert the Physician. Ordering Provider: OBED BARBOSA Report Released Date/Time: Feb 29, 2024 02:28 PM Reporting Lab: [facility] [place] [facility] [address] [facility] [address] Performing Lab: [facility] [place] [facility] [address] [facility] [address] [facility] [place] [facility] URINALYS IS LEUKOCYTE ESTERASE [PRESENCE] IN URINE BY TEST STRIP NEGATIVE 03/01 Specimen Type: URINE Comment: If Glucose = >500 and Ketones are positive, please alert the Physician. Ordering Provider: OBED BARBOSA Report Released Date/Time: Feb 29, 2024 02:28 PM Reporting Lab: [facility] [place] [facility] [address] [facility] [address] Performing Lab: [place] [facility] [place] [facility] [address] [facility] [address] [facility] LIPID PANEL FASTING CHOLESTERO L [MASS/VOLU ME] IN SERUM OR PLASMA 158 mg/dL 09/11 Specimen Type: SERUM No comment entered. Ordering Provider: NEO MOBLEY Report Released Date/Time: Sep 06, 2023 02:39 PM Reporting Lab: [facility] [place] [facility] [address] [facility] [address] Performing Lab: [facility] [place] [facility] [address] [facility] [address] [place] LIPID PANEL FASTING TRIGLYCERI DE [MASS/VOLU ME] IN SERUM OR PLASMA 115 mg/dL 0 - 150 09/11 Specimen Type: SERUM No comment entered. Ordering Provider: NEO MOBLEY Report Released Date/Time: Sep 06, 2023 02:39 PM Reporting Lab: [place] [facility] [place] [address] [address] Performing Lab: [facility] [place] [address] [address] [place] LIPID PANEL FASTING CHOLESTERO L IN LDL [MASS/VOLU ME] IN SERUM OR PLASMA BY CALCULATIO N 85 mg/dL 0 - 129 09/11 Specimen Type: SERUM No comment entered. Ordering Provider: NEO MOBLEY Report Released Date/Time: Sep 06, 2023 02:39 PM Reporting Lab: [facility] [place] [address] [address] Performing Lab: [facility] [place] [address] [address] [place] LIPID PANEL FASTING CHOLESTERO L.TOTAL/CH OLESTEROL IN HDL [MASS RATIO] IN SERUM OR PLASMA 3.2 09/11 Specimen Type: SERUM No comment entered. Ordering Provider: NEO MOBLEY Report Released Date/Time: Sep 06, 2023 02:39 PM Reporting Lab: [facility] [place] [address] [address] Performing Lab: [place] [facility] [place] [address] [address] [facility] LIPID PANEL FASTING CHOLESTERO L IN HDL [MASS/VOLU ME] IN SERUM OR PLASMA 50 mg/dL 40 - 60 09/11 Specimen Type: SERUM No comment entered. Ordering Provider: NEO MOBLEY Report Released Date/Time: Sep 06, 2023 02:39 PM Reporting Lab: [facility] [address] [facility] [address] Performing Lab: [facility] [address] [address] [facility] Vital Signs Combined list of inpatient and outpatient Vital Signs from Department of Defense and Veterans Affairs, ranging from 12 months to all on record, depending upon the facility. Vital Sign Value Date Comments Source SYSTOLIC BLOOD PRESSURE 156 03/05/2024 10:09:05 [place] DIASTOLIC BLOOD PRESSURE 79 03/05/2024 10:09:05 [place] PULSE OXIMETRY 97 03/05/2024 10:09:05 [place] WEIGHT 154 03/05/2024 10:09:05 [place] BMI 25kg/m2 03/05/2024 10:09:05 [place] PULSE 74 03/05/2024 [facility]09[facility] SYSTOLIC BLOOD PRESSURE 130 11/23/2023 09:33:33 [place] DIASTOLIC BLOOD PRESSURE 76 11/23/2023 09:33:33 [place] PULSE OXIMETRY 97 11/23/2023 09:33:33 [place] PAIN 0 11/23/2023 09:33:33 [place] TEMPERATURE 97.9 11/23/2023 09:33:33 [place] PULSE 81 11/23/2023 09:33:33 [place] RESPIRATION 18 11/23/2023 09:33:33 [place] SYSTOLIC BLOOD PRESSURE 148 11/18/2023 08:57:27 [place] DIASTOLIC BLOOD PRESSURE 76 11/18/2023 08:57:27 [place] PULSE OXIMETRY 97 11/18/2023 08:57:27 [place] PAIN 1 11/18/2023 08:57:27 [place] TEMPERATURE 98.1 11/18/2023 08:57:27 [place] PULSE 69 11/18/2023 08:57:27 [place] RESPIRATION 16 11/18/2023 08:57:27 [facility] SYSTOLIC BLOOD PRESSURE 131 09/06/2023 14:02:12 [place] DIASTOLIC BLOOD PRESSURE 73 09/06/2023 14:02:12 [place] PULSE OXIMETRY 94 09/06/2023 14:02:12 [place] WEIGHT 158 09/06/2023 14:02:12 [place] GALVE[place] BMI 26kg/m2 09/06/2023 14:02:12 DUAR[place] GALVEZ PULSE 83 09/06/2023 14:02:12 NICKO[place] GFLALITA Encounters Combined list of: 1) Encounters from Department of Veterans Affairs facilities going back up to thelast 18 months. 2) Encounters from the Department of [employer] facilities going back up to 280 months. Location Location Details Encounter Type Encounter Number Reason For Visit Attending Provider ADM Date DC Date Status Disposition Source [facility] Outpatient Encounter [id number] 10/19 [facility] [place] [facility] Outpatient Encounter [id number] 10/21 [facility] [place] Outpatient Encounter [id number] MADONNA LARKIN 10/21 [facility] [place] [facility] ELECTROCAR DIOGRAM TRACING [id number] Diagnos is: ICD-10- CM Z01.818 Encount er for other preproc edural examina tion
LIEBELT,ME GISSELLE SAMARA 10/21 [facility] OFFICE O/P EST MOD 30-39 MIN [id number] Diagnos is: ICD-10- CM I10 Essenti al (primar y) hyperte nsion<b r/> MADONNA LARKIN 10/21 [facility] [id number] Diagnos is: ICD-10- CM I49.8 Other specifi ed cardiac arrhyth mias
AJAY MARADIAGA 10/21 [facility] Out[facility] En[facility] [id number] 10/22 [facility] [place] OFF/OP EST JULY X REQ PHY/QHP [id number] Diagnos is: ICD-10- CM I10 Essenti al (primar y) hyperte nsion<b r/> ROBLESBERNICE 10/25 [place] [facility] Encounter [id number] 10/25 [facility] [id number] 11/04 [facility] [id number] 11/04 [facility] En[facility] [id number] 12/01 [facility] TTE W/DOPPLER COMPLETE [id number] Diagnos is: ICD-10- CM I35.0 Nonrheu matic aortic (valve) stenosi s
PAKO LEDESMA S R 12/01 [facility] [id number] 12/04 [facility] [id number] 12/07 [facility] [id number] 12/07 [facility] [id number] 12/29 [facility] Encounter [id number] 01/27 [facility] OFFICE O/P EST LOW 20-29 MIN [id number] Diagnos is: ICD-10- CM R22.0 Localiz ed swellin g, mass and lump, head
IRENE BARBOSA 02/01 [facility] [place] [facility] Out[facility] Encounter [id number] 02/01 [facility] Outpatient Encounter [id number] BERNICE ROBLES 03/02 [facility] Out[facility] Encounter [id number] 03/03 [facility] Out[facility] Encounter [id number] 03/07 [facility] Out[facility] Encounter [id number] 03/09 [facility] Out[facility] Encounter [id number] 03/11 [facility] Outpatient Encounter [id number] BERNICE ROBLES 04/05 [facility] Out[facility] Encounter [id number] 04/11 [facility] Out[facility] Encounter [id number] BERNICE ROBLES 04/15 [facility] Out[facility] Encounter [id number] 04/29 [facility] Out[facility] Encounter [id number] [facility] Out[facility] Encounter [id number] [facility] Out[facility] Encounter [id number] 05/29 [facility] Out[facility] Encounter [id number] ME GISSELLE CHARLES 05/30 [facility] Out[facility] Encounter [id number] 05/30 [facility] Outpatient Encounter [id number] 08/30 [facility] Out[facility] Encounter [id number] 08/31 [facility] [place] OFFICE O/P EST MOD 30 MIN [id number] Diagnos is: ICD-10- CM I10 Essenti al (primar y) hyperte nsion<b r/> SHANI MOBLEY F 09/05 [place] [facility] Outpatient Encounter [id number] 09/18 [facility] Out[facility] Encounter [id number] 11/07 [facility] Outpatient Encounter [id number] 11/07 [facility] [place] OFF/OP EST MAY X REQ PHY/QHP [id number] Diagnos is: ICD-10- CM L03.90 Celluli tis, unspeci fied
ELMER,ER IC K 11/17 [place] [facility] Out[facility] Encounter [id number] 11/17 [facility] [place] OFF/OP EST MAY X REQ PHY/QHP [id number] Diagnos is: ICD-10- CM L03.90 Celluli tis, unspeci fied
ELMER,ER IC K 11/22 [place] [facility] Outpatient Encounter [id number] 11/22 [facility] [place] O/P EST LOW 20 MIN [id number] Diagnos is: ICD-10- CM L03.311 Celluli tis of abdomin al wall
IRENE BARBOSA 11/22 [place] [facility] Outpatient Encounter [id number] 11/28 [facility] Out[facility] Encounter [id number] [facility] Outpatient Encounter [id number] 12/19 [facility] Outpatient Encounter [id number] [facility] Outpatient Encounter [id number] 1.12/25 [facility] QNHP OL DIG ASSMT&MGMT 5-10 [id number] 1. Diagnos is: ICD-10- CM Z12.2 Encntr screen for maligna nt neoplas m of respira tory organs< br/> KHURRAM LORENZO 12/25 [facility] Outpatient Encounter [id number] SIDDHARTHA NAIK 01/05 [facility] Out[facility] Encounter [id number] 1. FARHAD SANDOVAL 01/05 [facility] Outpatient Encounter [id number] 01/05 [facility] Outpatient Encounter [id number] 01/18 [facility] Out[facility] Encounter [id number] 1.01/18 [facility] Outpatient Encounter [id number] 1. SIDDHARTHA NAIK 02/06 [facility] Out[facility] Encounter [id number] 1.02/28 [facility] Outpatient Encounter [id number] 1.03/05 [facility] Out[facility] Encounter [id number] 1.03/05 [facility] [place] Outpatient Encounter [id number] 1BY. 01 IRENE BARBOSA 03/05 [facility] [place] [facility] Outpatient Encounter [id number] 03/05 [facility] Social History Combined list of available smoking, tobacco, and other social history from Department of Defense and Veterans Affairs facilities. 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 [place] History of tobacco use QUIT TOBACCO USE 1-7 YEARS AGO 12/11/2014 [place] History of tobacco use V1-PT DECLINES TOBACCO CESSATION MEDS 01/24/2013 [place] History of tobacco use CURRENT SMOKER 10/24/2012 one in a half to two packs per day [place] Plan of Care List of future care activities from Department of [facility] Affairs facilities. Additional future care activities may be listed in the Assessment and Plan section. Date/Time Care Activity Care Activity Detail Facili 08/27/2024 AMBULATORY - MEDICINE AMBULATORY - MEDICI NE [place] 01/25/2024 Consult Order COMMUNITY CARE-D ENTAL SPECIALTY Cons Equipment Maintenance Tech's Choice [facility] [place] [facility] 03/05/2024 Consult Order COMMUNITY CARE-C OLONOSCOPY SCREENING WITH EGD Cons Equipment Maintenance Tech's Choice [place] 03/05/2024 Consult Order TELE-EYE SCREENI NG CONSULT/SPOPC (OUTPT) Cons Equipment Maintenance Tech's Choice [place]
--- OUTSIDE RECORDS SUMMARY | 2024-03-09 11:11 | XMS_ITS | Encounter Summary ---
Author Name [place] Address [address] [place] [address] Care Team Providers Care Manager Mobility Name Role Phone MARICRUZ BARBOSA Primary Care Provider Unavailabl e Insurance Providers: All historical and current Section Date Range: From patient's date of to the date document was created. This section includes the names of all active insurance providers for the patient. Insurance Provider Type of Coverage Plan Name Start of Policy Coverage End of Policy Coverage Group Number Member ID Insurance Provider's Telephone Number Policy Gudino's Name Patient's Relationship to Policy Gudino JONATHAN [facility] FEDERAL PREFERRED PROVIDER ORGANIZAT ION (PPO) BASIC SELF Mar 22, 2009 [id number] KT RODAS PATIENT BCBS [facility] PREFERRED PROVIDER ORGANIZAT ION (PPO) BASIC INDIV IDUAL Mar 22, 2009 111 [id number] KT RODAS PATIENT [employer] FEPR[employer] PLAN PRESCRIPT ION [employer] FEPRX Mar 21, 2010 [id number] KT RODAS PATIENT MEDICARE (WNR) MEDICARE (M) PART B Dec 19, 2012 PART B [id number] KT RODAS PATIENT MEDICARE (WNR) MEDICARE (M) PART B Dec 19, 2012 PART B [id number] [phone] KT RODAS PATIENT MEDICARE (WNR) MEDICARE (M) PART B Dec 19, 2012 PART B [id number] [phone] KT RODAS PATIENT MEDICARE (WNR) MEDICARE (M) PART B Dec 19, 2012 PART B [id number] [phone] KT RODAS PATIENT MEDICARE (WNR) MEDICARE (M) PART A Nov 19, 2012 PART A [id number] KT RODAS PATIENT MEDICARE (WNR) MEDICARE (M) PART A Nov 19, 2012 PART A [id number] KT RODAS PATIENT MEDICARE (WNR) MEDICARE (M) PART A Nov 19, 2012 PART A [id number] KT RODAS PATIENT MEDICARE (WNR) MEDICARE (M) PART A Nov 19, 2012 PART A [id number] KT RODAS PATIENT Selected Encounter This section includes the information on record at [place] for the Encounter. Date/Time Encounter Type Encounter Description Reason Pro vider Source May 19, 2023 12:00 AM Outpatient Encounter EVENT (HISTORICAL) IHE Encounter Template Text not used by [place] Plan of Treatment: Future Appointments (+ 6 months) and Future Tests (+/- 45 days) The Plan of Treatment section includes future care activities for the patient from all [place] treatmentfacilities. This section includes future appointments and future orders which are active, pending or scheduled. Future Appointments This section includes appointments that were scheduled to occur 6 months from the date of the Encounter, up to a maximum of 20 appointments. The data comes from all [place] treatment facilities. Appointment Date/Time Appointment Type Appointme nt Facility Name Sep 06, 2023 02:00 PM AMBULATORY - MEDICINE [place] Social History: Smoking Status (Most current) and Tobacco Use (All prior to encounter date) This section includes the most current, and the historical, smoking and tobacco- related health factors from the VA facility where the Encounter took place. Current Smoking Status This section includes the most current smoking, or tobacco-related health factor, from the VA facility where the Encounter took place. Date/Time Current Smoking Status Comment Jarrod quigley Oct 21, 2022 10:25 AM VA-TOBACCO FOR[place] USER [place] [facility] [place] [facility] Tobacco Use History This section includes a history of the smoking, or tobacco-related health factors, that were collected on or before the date of the Encounter. The data comes from the [place] facility where the Encounter took place. Date/Time Smoking Status/Tobacco Use Comment F acility Oct 21, 2022 10:25 AM VA-TOBACCO QUIT 5 TO < 15 YRS [place] [facility] [place] [facility] Oct 01, 2021 09:59 AM VA-TOBACCO DOESNT USE WI 30 MIN WAKEUP [place] [facility] Oct 01, 2021 09:59 AM VA-TOBACCO USE 30 YEARS OR MORE [place] [facility] Oct 01, 2021 09:59 AM VA-TOBACCO USE ADVICE [place] 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
--- OUTSIDE RECORDS SUMMARY | 2024-03-09 11:11 | XMS_ITS | Encounter Summary ---
Author Name [facility] [place] Address [address] [place] [address] Care Team Providers Care J2Ee Architect Name Role Phone MARICRUZ BARBOSA Primary Care [...] Name Patient's Relationship to Policy Gudino JONATHAN [facility] FEDERAL PREFERRED PROVIDER ORGANIZAT ION (PPO) BASIC SELF Mar 22, 2009 111 [id number] KT RODAS PATIENT BCBS [facility] PREFERRED PROVIDER ORGANIZAT ION (PPO) BASIC INDIV IDUAL Mar 22, 2009 [id number] KT RODAS PATIENT [employer] FEPR[employer] PLAN PRESCRIPT ION CAR[employer]K FEPRX Mar 21, 2010 [id number] KT RODAS PATIENT MEDICARE (WNR) MEDICARE (M) PART B Dec 19, 2012 PART B [id number] KT RODAS PATIENT MEDICARE (WNR) MEDICARE (M) PART B Dec 19, 2012 PART B [id number] [phone] KT RODAS PATIENT MEDICARE (WNR) MEDICARE (M) PART B Dec 19, 2012 PART B [id number] KT RODAS PATIENT MEDICARE (WNR) MEDICARE (M) PART B Dec 19, 2012 PART B [id number] KT RODAS PATIENT MEDICARE (WNR) MEDICARE (M) PART A Nov 19, 2012 PART A [id number] KT RODAS PATIENT MEDICARE (WNR) MEDICARE (M) PART A Nov 19, 2012 PART A [id number] [phone] KT RODAS PATIENT MEDICARE (WNR) MEDICARE (M) PART A Nov 19, 2012 PART A [id number] KT RODAS PATIENT MEDICARE (WNR) MEDICARE (M) PART A Nov 19, 2012 PART A [id number] KT RODAS PATIENT Selected Encounter This section includes the information on record at [place] for the Encounter. Date/Time Encounter Type Encounter Description Reason Provider Source May 31, 2023 10:18 AM Outpatient Encounter PRIMARY CARE/MEDICINE CHANDRAKANT CHARLES Encounter Template Text not used by [place] Plan of Treatment: Future Appointments (+ 6 months) and Future Tests (+/- 45 days) The Plan of Treatment section includes future care activities for the patient from all [place] treatmentfacilities. This section includes future appointments and future orders which are active, pending or scheduled. Future Appointments This section includes appointments that were scheduled to occur 6 months from the date of the Encounter, up to a maximum of 20 appointments. The data comes from all [place] treatment facilities. Appointment Date/Time Appointment Type Appointme nt Facility Name Sep 06, 2023 02:00 PM [facility]ORY [facility] Nov 18, 2023 08:45 AM [facility]ATORY - MEDICINE [facility] Nov 23, 2023 09:15 AM [facility]ATORY [facility]ICINE [facility] Nov 23, 2023 09:30 AM [facility]ORY - [facility]ICINE [facility] Social History: Smoking Status (Most current) and Tobacco Use (All prior to encounter date) This section includes the most current, and the historical, smoking and tobacco- related health factors from the VA facility where the Encounter took place. Current Smoking Status This section includes the most current smoking, or tobacco-related health factor, from the [place] facility where the Encounter took place. Date/Time Current Smoking Status Comment Jarrod ity Oct 21, 2022 10:25 AM [facility] Tobacco Use History This section includes a history of the smoking, or tobacco-related health factors, that were collected on or before the date of the Encounter. The data comes from the [place] facility where the Encounter took place. Date/Time Smoking Status/Tobacco Use Comment F acility Oct 21, 2022 10:25 AM VA-TOBACCO QUIT 5 TO < 15 YRS [place] [facility] [place] [facility] Oct 01, 2021 09:59 AM VA-TOBACCO DOESNT USE WI 30 MIN WAKEUP [place] [facility] [place] [facility] Oct 01, 2021 09:59 AM VA-TOBACCO USE 30 YEARS OR MORE [place] [facility] [place] [facility] Oct 01, 2021 09:59 AM VA-TOBACCO USE ADVICE [place] [facility] [place] [facility] Oct 01, 2021 09:59 AM VA-TOBACCO USE PERSONAL CARE AID NO [place] [facility] Oct 01, 2021 09:59 AM VA-TOBACCO USE MED NO [place] [facility] Oct 01, 2021 09:59 AM VA-TOBACCO USER EVERY DAY [place] [facility] Encounter Notes: All associated encounter notes This section contains the clinical notes associated to the Encounter. Date/Time Encounter Note(s) Provider Source May 31, 2023 11:43 AM ADDENDUM: LOCAL TITLE: Addendum STANDARD TITLE: ADDENDUM DATE OF NOTE: MAY 31, 2023@11:43:38 ENTRY DATE: MAY 31, 2023@11:43:39 AUTHOR: KAITLIN PEÑA EXP COSIGNER: URGENCY: STATUS: COMPLETED Medication request sent to the provider. /sunni/ KAITLIN PEÑA RN REGISTERED NURSE Signed: 05/31/2023 11:43 Receipt Acknowledged By: 05/31/2023 15:30 /sunni/ DARSHANA DE OLIVEIRA NP NURSE PRACTITIONER ========= --- Original Document --- 05/31/23 PRIMARY CARE SECURE MESSAGING: ------Original Message -------- Sent: 05/31/2023 05:11 AM ET From: LARRY RODAS To: FORD DE OLIVEIRA KYL E, A_PRIMARY CARE_SPO Subject: Medication:prescription renewal Need to renew ASPIRIN 81MG EC TAB RX#[id number] /sunni/ CHANDRAKANT CHARLES LPN LICENSED PRACTICAL NURSE Signed: 05/31/2023 11:18 Receipt Acknowledged By: 05/31/2023 11:43 /sunni/ KAITLIN PEÑA RN REGISTERED NURSE KAITLIN PEÑA [facility] May 31, 2023 10:18 AM PRIMARY CARE SECUR E MESSAGING: LOCAL TITLE: PRIMARY CARE SECURE MESSAGING STANDARD TITLE: PRIMARY CARE SECURE MESSAGING DATE OF NOTE: MAY 31, 2023@10:18 ENTRY DATE: MAY 31, 2023@11:18:14 AUTHOR: CHANDRAKANT CHARLES EXP COSIGNER: URGENCY: STATUS: COMPLETED PRIMARY CARE SECURE MESSAGING Has ADDENDA ------Original Message -------- Sent: 05/31/2023 05:11 AM ET From: LARRY RODAS To: FORD DE OLIVEIRA KYL E,Maggie_PRIMARY CARE_SPOPC Subject: Medication:prescription renewal Need to renew ASPIRIN 81MG EC TAB RX#[id number] /joyce CHARLES LPN LICENSED PRACTICAL NURSE Signed: 05/31/2023 11:18 Receipt Acknowledged By: 05/31/2023 11:43 /joyce PEÑA RN REGISTERED NURSE 05/31/2023 ADDENDUM STATUS: COMPLETED Medication request sent to the provider. /es/ KAITLIN PEÑA, RN REGISTERED NURSE Signed: 05/31/2023 11:43 Receipt Acknowledged By: * AWAITING SIGNATURE * DARSHANA DE OLIVEIRA,CHANDRAKANT PASCUAL [facility]
--- OUTSIDE RECORDS SUMMARY | 2024-03-09 11:11 | XMS_ITS | Encounter Summary ---
Author Name [facility] [place] Address [address] [place] [address] Care Team Providers Care Formulation Chemist Name Role Phone MARICRUZ BARBOSA Primary Care [...] Name Patient's Relationship to Policy Gudino JONATHAN [facility] FEDERAL PREFERRED PROVIDER ORGANIZAT ION (PPO) BASIC SELF Mar 22, 2009 [id number] KT RODAS PATIENT BCBS [facility] PREFERRED PROVIDER ORGANIZAT ION (PPO) BASIC INDIV IDUAL Mar 22, 2009 [id number] KT RODAS PATIENT [employer] FEPRX PLAN PRESCRIPT ION [employer]K FEPRX Mar 21, 2010 [id number] KT RODAS PATIENT MEDICARE (WNR) MEDICARE (M) PART B Dec 19, 2012 PART B [id number] KT RODAS PATIENT MEDICARE (WNR) MEDICARE (M) PART B Dec 19, 2012 PART B [id number] KT RODAS PATIENT MEDICARE (WNR) MEDICARE (M) PART B Dec 19, 2012 PART B [id number] KT RODAS PATIENT MEDICARE (WNR) MEDICARE (M) PART B Dec 19, 2012 PART B [id number] KT RODAS PATIENT MEDICARE (WNR) MEDICARE (M) PART A Nov 19, 2012 PART A [id number] KT RODAS PATIENT MEDICARE (WNR) MEDICARE (M) PART A Nov 19, 2012 PART A [id number] KT RODAS PATIENT MEDICARE (WNR) MEDICARE (M) PART A Nov 19, 2012 PART A [id number] KT RODAS PATIENT MEDICARE (WNR) MEDICARE (M) PART A Nov 19, 2012 PART A [id number] KT RODAS PATIENT Selected Encounter This section includes the information on record at [place] for the Encounter. Date/Time Encounter Type Encounter Description Reason Pro vider Source Apr 11, 2023 03:04 PM Outpatient Encounter PRIMARY CARE/MEDICINE IHE Encounter Template Text not used by [place] Plan of Treatment: Future Appointments (+ 6 months) and Future Tests (+/- 45 days) The Plan of Treatment section includes future care activities for the patient from all [place] treatmentfacilities. This section includes future appointments and future orders which are active, pending or scheduled. Future Appointments This section includes appointments that were scheduled to occur 6 months from the date of the Encounter, up to a maximum of 20 appointments. The data comes from all [place] treatment facilities. Appointment Date/Time Appointment Type Appointme nt Facility Name May 19, 2023 07:30 AM AMBULATORY - NONE [place] [facility] [place] [facility] Sep 06, 2023 02:00 PM [facility] Social History: Smoking Status (Most current) [...] 21, 2022 10:25 AM VA-TOBACCO FOR[facility] Tobacco Use History This section includes a history of the smoking, or tobacco-related health factors, that were collected on or before the date of the Encounter. The data comes from the [place] facility where the Encounter took place. 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 Encounter Notes: All associated encounter notes This section contains the clinical notes associated to the Encounter. Date/Time Encounter Note(s) Provider Source Apr 11, 2023 03:04 PM NURSING NOTE: LOCAL TITLE: NURSING NOTE STANDARD TITLE: NURSING NOTE DATE OF NOTE: APR 11, 2023@15:04 ENTRY DATE: APR 11, 2023@15:04:20 AUTHOR: BERNICE ROBLES EXP COSIGNER: URGENCY: STATUS: COMPLETED NURSING NOTE Has ADDENDA Called and spoke to . He states he received a letter informing him he is due for a colonoscopy. had one done on Nov 04, 2022 w/recommendations to return in 5 yrs. [place] is going to send letter he received via [facility] so PACT RN can review. /sunni/ BERNICE ROBLES RN REGISTERED NURSE Signed: 04/11/2023 15:10 04/12/2023 ADDENDUM STATUS: COMPLETED Called and spoke to [facility]. [place] will need a consult for another colonoscopy due in April,. Repeat is being done d/tfinding at initial colonoscopy done in 2022. /sunni/ BERNICE ROBLES RN REGISTERED NURSE Signed: 04/12/2023 12:07 04/12/2023 ADDENDUM STATUS: COMPLETED Consult placed and awaiting PCP's signature. /sunni/ BERNICE ROBLES RN REGISTERED NURSE Signed: 04/12/2023 12:10 BERNICE ROBLES [place]
--- OUTSIDE RECORDS SUMMARY | 2024-03-09 11:11 | XMS_ITS | Encounter Summary ---
Author Name [facility] [place] Address [address] [place] [address] Care Team Providers Care Mathematical Engineering Technician Name Role Phone MARICRUZ BARBOSA Primary Care [...] Name Patient's Relationship to Policy Gudino JONATHAN [facility] FEDERAL PREFERRED PROVIDER ORGANIZAT ION (PPO) BASIC SELF Mar 22, 2009 [id number] KT RODAS PATIENT BCBS [facility] PREFERRED PROVIDER ORGANIZAT ION (PPO) BASIC INDIV IDUAL Mar 22, 2009 111 [id number] KT RODAS PATIENT [employer] FEPRX PLAN PRESCRIPT ION CAREM ARK FEPRX Mar 21, 2010 [id number] KT RODAS PATIENT MEDICARE (WNR) MEDICARE (M) PART B Dec 19, 2012 PART B [id number] KT RODAS PATIENT MEDICARE (WNR) MEDICARE (M) PART B Dec 19, 2012 PART B [id number] [phone] KT RODAS PATIENT MEDICARE (WNR) MEDICARE (M) PART B Dec 19, 2012 PART B [id number] KT RODAS PATIENT MEDICARE (WNR) MEDICARE (M) PART B Dec 19, 2012 PART B [id number] KT RODAS PATIENT MEDICARE (WNR) MEDICARE (M) PART A Nov 19, 2012 PART A [id number] KT RODAS PATIENT MEDICARE (WNR) MEDICARE (M) PART A Nov 19, 2012 PART A [id number] KT RODAS PATIENT MEDICARE (WNR) MEDICARE (M) PART A Nov 19, 2012 PART A [id number] [phone] KT RODAS PATIENT MEDICARE (WNR) MEDICARE (M) PART A Nov 19, 2012 PART A [id number] KT RODAS PATIENT Selected Encounter This section includes the information on record at [place] for the Encounter. Date/Time Encounter Type Encounter Description Reason Pro vider Source May 19, 2023 12:00 PM Outpatient Encounter COMMUNITY CARE CONSULT IHE Encounter Template Text not used by [place] Plan of Treatment: Future Appointments (+ 6 months) and Future Tests (+/- 45 days) The Plan of Treatment section includes future care activities for the patient from all [place] treatmentfacilities. This section includes future appointments and future orders which are active, pending or scheduled. Future Appointments This section includes appointments that were scheduled to occur 6 months from the date of the Encounter, up to a maximum of 20 appointments. The data comes from all [place] treatment facilities. Appointment Date/Time Appointment Type Appointme [...] 21, 2022 10:25 AM VA-TOBACCO FORMER USER [facility] Tobacco Use History This section includes a history of the smoking, or tobacco-related health factors, that were collected on or before the date of the Encounter. The data comes from the [place] facility where the Encounter took place. Date/Time Smoking Status/Tobacco Use Comment F acility Oct 21, 2022 10:25 AM VA-TOBACCO QUIT 5 TO < 15 YRS [place] [facility] Oct 01, 2021 09:59 AM VA-TOBACCO DOESNT USE WI 30 MIN WAKEUP [place] [facility] Oct 01, 2021 09:59 AM VA-TOBACCO USE 30 YEARS OR MORE [place] [facility] Oct 01, 2021 09:59 AM VA-TOBACCO USE ADVICE [place] [facility] Oct 01, 2021 09:59 AM VA-TOBACCO USE RISK AND INSURANCE MANAGER NO [place] CNTR [facility] Oct 01, 2021 09:59 AM VA-TOBACCO USE MED NO [place] [facility] Oct 01, 2021 09:59 AM VA-TOBACCO USER EVERY [facility] Encounter Notes: All associated encounter notes This section contains the clinical notes associated to the Encounter. Date/Time Encounter Note(s) Provider Source May 19, 2023 12:00 PM NONVA CONSULT: LOCAL TITLE: COMMUNITY CARE-CONSULT RESULT COLONOSCOPY STANDARD TITLE: NONVA CONSULT DATE OF NOTE: MAY 19, 2023@12:00 ENTRY DATE: JUN 03, 2023@12:58:01 AUTHOR: DEBBIE MORRIS EXP CHEIGNER: URGENCY: STATUS: COMPLETED VistA Imaging - Scanned Document SCANNED DOCUMENT SIGNATURE NOT REQUIRED Electronically Filed: 06/03/2023 by: DEBBIE COHEN [facility] May 19, 2023 12:00 PM NONVA CONSULT: LOCAL TITLE: COMMUNITY CARE-CONSULT RESULT COLONOSCOPY STANDARD TITLE: NONVA CONSULT DATE OF NOTE: MAY 19, 2023@12:00 ENTRY DATE: JUN 03, 2023@13:03:36 AUTHOR: DEBBIE MORRISIGNER: URGENCY: STATUS: COMPLETED VistA Imaging - Scanned Document SCANNED DOCUMENT SIGNATURE NOT REQUIRED Electronically Filed: 06/03/2023 by: DEBBIE COHEN [facility] May 19, 2023 12:00 PM NONVA CONSULT: LOCAL TITLE: COMMUNITY CARE-CONSULT RESULT COLONOSCOPY STANDARD TITLE: NONVA CONSULT DATE OF NOTE: MAY 19, 2023@12:00 ENTRY DATE: JUN 15, 2023@16:08:21 AUTHOR: DEBBIE MORRIS EXP COSIGNER: URGENCY: STATUS: COMPLETED VistA Imaging - Scanned Document SCANNED DOCUMENT SIGNATURE NOT REQUIRED Electronically Filed: 06/15/2023 by: DEBBIE [facility]ENCOM[facility] May 19, 2023 12:00 PM NONVA CONSULT: LOCAL TITLE: COMMUNITY CARE-CONSULT RESULT COLONOSCOPY STANDARD TITLE: NONVA CONSULT DATE OF NOTE: MAY 19, 2023@12:00 ENTRY DATE: JUN 15, 2023@16:10:56 AUTHOR: DEBBIE MORRIS EXP CHEIGNER: URGENCY: STATUS: COMPLETED VistA Imaging - Scanned Document SCANNED DOCUMENT SIGNATURE NOT REQUIRED Electronically Filed: 06/15/2023 by: DEBBIE COHENENCOMPASS [facility]
--- OUTSIDE RECORDS SUMMARY | 2024-03-09 11:11 | XMS_ITS | Encounter Summary ---
Author Name [facility] [place] [facility] [place] Address [address] [place] [address] Care Team Providers Care Metrologist Name Role Phone MARICRUZ BARBOSA Primary Care [...] Name Patient's Relationship to Policy Gudino JONATHAN [facility] FEDERAL PREFERRED PROVIDER ORGANIZAT ION (PPO) BASIC SELF Mar 22, 2009 [id number] [phone] KT RODAS PATIENT BCBS [facility] PREFERRED PROVIDER ORGANIZAT ION (PPO) BASIC INDIV IDUAL Mar 22, 2009 111 [id number] KT RODAS PATIENT [employer] FEPRX PLAN PRESCRIPT ION CAREM ARK FEPRX Mar 21, 2010 [id number] KT RODAS PATIENT MEDICARE (WNR) MEDICARE (M) PART B Dec 19, 2012 PART B [id number] KT RODAS PATIENT MEDICARE (WNR) MEDICARE (M) PART B Dec 19, 2012 PART B [id number] [phone] KT RODAS PATIENT MEDICARE (WNR) MEDICARE (M) PART B Dec 19, 2012 PART B [id number] KT RODAS PATIENT MEDICARE (WNR) MEDICARE (M) PART B Dec 19, 2012 PART B [id number] [phone] KT RODAS PATIENT MEDICARE (WNR) MEDICARE (M) PART A Nov 19, 2012 PART A [id number] KT RODAS PATIENT MEDICARE (WNR) MEDICARE (M) PART A Nov 19, 2012 PART A [id number] KT RODAS PATIENT MEDICARE (WNR) MEDICARE (M) PART A Nov 19, 2012 PART A [id number] KT RODAS PATIENT MEDICARE (WNR) MEDICARE (M) PART A Nov 19, 2012 PART A [id number] KT RODAS PATIENT Selected Encounter This section includes the information on record at [place] for the Encounter. Date/Time Encounter Type Encounter Description Reason Pro vider Source Apr 29, 2023 12:00 PM Outpatient Encounter COMMUNITY CARE CONSULT IHE Encounter Template Text not used by [place] Plan of Treatment: Future Appointments (+ 6 months) and Future Tests (+/- 45 days) The Plan of Treatment section includes future care activities for the patient from all [place] treatmentfacilities. This section includes future appointments and future orders which are active, pending or scheduled. Future Appointments This section includes appointments that were scheduled to occur 6 months from the date of the Encounter, up to a maximum of 20 appointments. The data comes from all [place] treatment facilities. Appointment Date/Time Appointment Type Appointme nt Facility Name May 19, 2023 07:30 AM AMBULATORY - NONE [place] [facility] Sep 06, 2023 02:00 PM AMBULATORY - MEDICINE [facility] Social History: Smoking Status (Most current) and [...] place. Date/Time Current Smoking Status Comment Jarrod quiglye Oct 21, 2022 10:25 AM VA-TOBACCO [facility] Tobacco Use History This section includes a history of the smoking, or tobacco-related health factors, that were collected on or before the date of the Encounter. The data comes from the [place] facility where the Encounter took place. Date/Time Smoking Status/Tobacco Use Comment Johnie acmonse Oct 21, 2022 10:25 AM VA-TOBACCO QUIT 5 TO < 15 YRS [place] [facility] Oct 01, 2021 09:59 AM VA-TOBACCO DOESNT USE WI 30 MIN WAKEUP [place] [facility] Oct 01, 2021 09:59 AM VA-TOBACCO USE 30 YEARS OR MORE [place] [facility] Oct 01, 2021 09:59 AM VA-TOBACCO USE [facility] Oct 01, 2021 09:59 AM VA-TOBACCO USE SHINGLE CUTTER NO [place] [facility] Oct 01, 2021 09:59 AM VA-TOBACCO USE MED NO [place] [facility] Oct 01, 2021 09:59 AM VA-TOBACCO USER EVERY [facility] Encounter Notes: All associated encounter notes This section contains the clinical notes associated to the Encounter. Date/Time Encounter Note(s) Provider Source Apr 29, 2023 12:00 PM NONVA CONSULT: LOCAL TITLE: COMMUNITY CARE-CONSULT RESULT NOTE STANDARD TITLE: NONVA CONSULT DATE OF NOTE: APR 29, 2023@12:00 ENTRY DATE: MAY 11, 2023@10:52:10 AUTHOR: JAYLA PRYOR EXP COSIGNER: URGENCY: STATUS: COMPLETED VistA Imaging - Scanned Document SCANNED DOCUMENT SIGNATURE NOT REQUIRED Electronically Filed: 05/11/2023 by: JAYLA CACERES [facility] Apr 29, 2023 12:00 PM NONVA CONSULT: LOCAL TITLE: COMMUNITY CARE-CONSULT RESULT NOTE STANDARD TITLE: NONVA CONSULT DATE OF NOTE: APR 29, 2023@12:00 ENTRY DATE: NOV 25, 2023@10:23:01 AUTHOR: BALDO MCCANN EXP COSIGNER: URGENCY: STATUS: COMPLETED VistA Imaging - Scanned Document SCANNED DOCUMENT SIGNATURE NOT REQUIRED Electronically Filed: 11/25/2023 by: BALDO MCCANN CO FOUNDER AND CHAIRMAN BALDO MCCANN [place] [facility]
--- OUTSIDE RECORDS SUMMARY | 2024-03-09 11:11 | XMS_ITS | Encounter Summary ---
Author Name [facility] [place] Address [address] [place] [address] Care Team Providers Care Concert Pianist Name Role Phone MARICRUZ BARBOSA Primary Care [...] Name Patient's Relationship to Policy Gudino JONATHAN [facility] FEDERAL PREFERRED PROVIDER ORGANIZAT ION (PPO) BASIC SELF Mar 22, 2009 [id number] [phone] KT RODAS PATIENT BCBS [facility] PREFERRED PROVIDER ORGANIZAT ION (PPO) BASIC INDIV IDUAL Mar 22, 2009 [id number] KT RODAS PATIENT [employer] FEPRX PLAN PRESCRIPT ION CAREM ARK FEPRX Mar 21, 2010 [id number] KT RODAS PATIENT MEDICARE (WNR) MEDICARE (M) PART B Dec 19, 2012 PART B [id number] KT RODAS PATIENT MEDICARE (WNR) MEDICARE (M) PART B Dec 19, 2012 PART B [id number] KT RODAS PATIENT MEDICARE (WNR) MEDICARE (M) PART B Dec 19, 2012 PART B [id number] KT RODAS PATIENT MEDICARE (WNR) MEDICARE (M) PART B Dec 19, 2012 PART B [id number] [phone] KT RODAS PATIENT MEDICARE (WNR) MEDICARE (M) PART A Nov 19, 2012 PART A [id number] KT RODAS PATIENT MEDICARE (WNR) MEDICARE (M) PART A Nov 19, 2012 PART A [id number] KT RODAS PATIENT MEDICARE (WNR) MEDICARE (M) PART A Nov 19, 2012 PART A [id number] KT RODAS PATIENT MEDICARE (WNR) MEDICARE (M) PART A Nov 19, 2012 PART A [id number] [id number] KT RODAS PATIENT Selected Encounter This section includes the information on record at [place] for the Encounter. Date/Time Encounter Type Encounter Description Reason Provider Source Apr 05, 2023 12:19 PM Outpatient Encounter PRIMARY CARE/MEDICINE MOUNIKA ROBLES Encounter Template Text not used by [place] Plan of Treatment: Future Appointments (+ 6 months) and Future Tests (+/- 45 days) The Plan of Treatment section includes future care activities for the patient from all [place] treatmentfacilities. This section includes future appointments and future orders which are active, pending or scheduled. Future Appointments This section includes appointments that were scheduled to occur 6 months from the date of the Encounter, up to a maximum of 20 appointments. The data comes from all [place] treatment facilities. Appointment Date/Time Appointment Type Appointme nt Facility Name May 19, 2023 07:30 AM AMBULATORY - NONE [place] [facility] Sep 06, 2023 02:00 PM [facility] Social History: Smoking Status (Most current) [...] 21, 2022 10:25 AM [facility] Tobacco Use History This section includes a history of the smoking, or tobacco-related health factors, that were collected on or before the date of the Encounter. The data comes from the [place] facility where the Encounter took place. 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 Date/Time Encounter Note(s) Provider Source Apr 05, 2023 12:19 PM PRIMARY CARE SECOctavian E MESSAGING: LOCAL TITLE: PRIMARY CARE SECURE MESSAGING STANDARD TITLE: PRIMARY CARE SECURE MESSAGING DATE OF NOTE: APR 05, 2023@12:19 ENTRY DATE: APR 05, 2023@12:19:43 AUTHOR: BERNICE ROBLES EXP COSIGNER: URGENCY: STATUS: COMPLETED ------Original Message -------- Sent: 04/03/2023 01:43 PM ET From: LARRY RODAS To: Maggie LARKIN_PRIMARY CARE_SPOPC Subject: Medication:prescription renewal need to refill OMEPRAZOLE 20MG EC CAP perscription /es/ BERNICE ROBLES RN REGISTERED NURSE Signed: 04/05/2023 12:19 BERNICE ROBLES [facility]L [facility]
--- OUTSIDE RECORDS SUMMARY | 2024-03-09 11:11 | XMS_ITS | Encounter Summary ---
Author Name [facility] [place] Address [address] [place] [address] Care Team Providers Care Flavor Extractor Name Role Phone MARICRUZ BARBOSA Primary Care [...] Name Patient's Relationship to Policy Gudino JONATHAN [facility] FEDERAL PREFERRED PROVIDER ORGANIZAT ION (PPO) BASIC SELF Mar 22, 2009 [id number] KT RODAS PATIENT BCBS [facility] PREFERRED PROVIDER ORGANIZAT ION (PPO) BASIC INDIV IDUAL Mar 22, 2009 111 [id number] KT RODAS PATIENT [employer] FEPRX PLAN PRESCRIPT ION CAREM ARK FEPRX Mar 21, 2010 [id number] KT RODAS PATIENT MEDICARE (WNR) MEDICARE (M) PART B Dec 19, 2012 PART B [id number] KT RODAS PATIENT MEDICARE (WNR) MEDICARE (M) PART B Dec 19, 2012 PART B [id number] KT RODAS PATIENT MEDICARE (WNR) MEDICARE (M) PART B Dec 19, 2012 PART B [id number] KT RODAS PATIENT MEDICARE (WNR) MEDICARE (M) PART B Dec 19, 2012 PART B [id number] KT RODAS PATIENT MEDICARE (WNR) MEDICARE (M) PART A Nov 19, 2012 PART A [id number] KT RODAS PATIENT MEDICARE (WNR) MEDICARE (M) PART A Nov 19, 2012 PART A [id number] KT RODAS PATIENT MEDICARE (WNR) MEDICARE (M) PART A Nov 19, 2012 PART A [id number] KT RODAS PATIENT MEDICARE (WNR) MEDICARE (M) PART A Nov 19, 2012 PART A [id number] AD83 KT RODAS PATIENT Selected Encounter This section includes the information on record at [place] for the Encounter. Date/Time Encounter Type Encounter Description Reason Pro vider Source May 30, 2023 12:00 AM Outpatient Encounter EVENT (HISTORICAL) IHE Encounter Template Text not used by [place] Plan of Treatment: Future Appointments (+ 6 months) and Future Tests (+/- 45 days) The Plan of Treatment section includes future care activities for the patient from all [place] treatmentfacilities. This section includes future appointments and future orders which are active, pending or scheduled. Future Appointments This section includes appointments that were scheduled to occur 6 months from the date of the Encounter, up to a maximum of 20 appointments. The data comes from all [place] treatment facilities. Appointment Date/Time Appointment Type Appointme nt Facility Name Sep 06, 2023 02:00 PM [facility] Nov 18, 2023 08:45 AM [facility] Nov 23, 2023 09:15 AM [facility] Nov 23, 2023 09:30 AM AMBULATORY - MEDICINE [facility] Social History: Smoking Status (Most current) and Tobacco Use (All prior to encounter date) This section includes the most current, and the historical, smoking and tobacco- related health factors from the [place] facility where the Encounter took place. Current Smoking Status This section includes the most current smoking, or tobacco-related health factor, from the [place] facility where the Encounter took place. Date/Time Current Smoking Status Comment Jarrod ity Oct 21, 2022 10:25 AM VA-TOBACCO FORMER USER [place] [facility] Tobacco Use History This section includes a history of the smoking, or tobacco-related health factors, that were collected on or before the date of the Encounter. The data comes from the [place] facility where the Encounter took place. 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
--- OUTSIDE RECORDS SUMMARY | 2024-03-09 11:11 | XMS_ITS ---
Author Name [facility] [place] Organization [place] Address [address] [place] [address] Care Team Providers Care Supervisor Specialty Plant Name Role Phone MARICRUZ BARBOSA Primary Care [...] Patient's Relationship to Policy Gudino JONATHAN [facility] FEDERAL PREFERRED PROVIDER ORGANIZAT ION (PPO) BASIC SELF Mar 22, 2009 [id number] KT RODAS PATIENT BCBS [facility] PREFERRED PROVIDER ORGANIZAT ION (PPO) BASIC INDIV IDUAL Mar 22, 2009 111 [id number] KT RODAS PATIENT [employer] FEPRX PLAN PRESCRIPT ION CAREM ARK FEPRX Mar 21, 2010 [id number] KT RODAS PATIENT MEDICARE (WNR) MEDICARE (M) PART B Dec 19, 2012 PART B [id number] KT RODAS PATIENT MEDICARE (WNR) MEDICARE (M) PART B Dec 19, 2012 PART B [id number] [phone] KT RODAS PATIENT MEDICARE (WNR) MEDICARE (M) PART B Dec 19, 2012 PART B [id number] KT RODAS PATIENT MEDICARE (WNR) MEDICARE (M) PART B Dec 19, 2012 PART B [id number] KT RODAS PATIENT MEDICARE (WNR) MEDICARE (M) PART A Nov 19, 2012 PART A [id number] [phone] KT RODAS PATIENT MEDICARE (WNR) MEDICARE (M) PART A Nov 19, 2012 PART A [id number] KT RODAS PATIENT MEDICARE (WNR) MEDICARE (M) PART A Nov 19, 2012 PART A [id number] [phone] KT RODAS PATIENT MEDICARE (WNR) MEDICARE (M) PART A Nov 19, 2012 PART A [id number] [id number] KT RODAS PATIENT Selected Encounter This section includes the information on record at [place] for the Encounter. Date/Time Encounter Type Encounter Description Reason Pro vider Source Mar 11, 2023 12:00 PM Outpatient Encounter COMMUNITY CARE CONSULT IHE Encounter Template Text not used by [place] Plan of Treatment: Future Appointments (+ 6 months) and Future Tests (+/- 45 days) The Plan of Treatment section includes future care activities for the patient from all [place] treatmentfacilities. This section includes future appointments and future orders which are active, pending or scheduled. Future Appointments This section includes appointments that were scheduled to occur 6 months from the date of the Encounter, up to a maximum of 20 appointments. The data comes from all [place] treatment facilities. Appointment Date/Time Appointment Type Appointme nt Facility Name May 19, 2023 07:30 AM AMBULATORY - NONE [place] [facility] Sep 06, 2023 02:00 PM [facility] Social History: Smoking Status (Most current) [...] ity Oct 21, 2022 10:25 AM VA-TOBACCO QUIT 5 TO < 15 YRS [facility] Tobacco Use History This section includes a history of the smoking, or tobacco-related health factors, that were collected on or before the date of the Encounter. The data comes from the [place] facility where the Encounter took place. 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 Date/Time Encounter Note(s) Provider Source Mar 11, 2023 12:00 PM NONVA CONSULT: LOCAL TITLE: COMMUNITY CARE-CONSULT RESULT NOTE STANDARD TITLE: NONVA CONSULT DATE OF NOTE: MAR 11, 2023@12:00 ENTRY DATE: MAR 24, 2023@11:47:44 AUTHOR: KHURRAM AGEE EXP COSIGNER: URGENCY: STATUS: COMPLETED VistA Imaging - Scanned Document SCANNED DOCUMENT SIGNATURE NOT REQUIRED Electronically Filed: 03/24/2023 by: KHURRAM AGEE WINEMAKER KHURRAM AGEE [facility]
--- OUTSIDE RECORDS SUMMARY | 2024-03-09 11:11 | XMS_ITS ---
Author Name [facility] [place] [facility] [place] Address [address] [place] [address] Care Team Providers Care Statistical Analyst Name Role Phone MARICRUZ BARBOSA Primary Care [...] (PPO) BASIC SELF Mar 22, 2009 [id number] [phone] KT RODAS PATIENT BCBS [facility] PREFERRED PROVIDER ORGANIZAT ION (PPO) BASIC INDIV IDUAL Mar 22, 2009 [id number] KT RODAS PATIENT [employer] FEPRX PLAN PRESCRIPT ION CAREM ARK FEPRX Mar 21, 2010 [id number] KT RODAS PATIENT MEDICARE (WNR) MEDICARE (M) PART B Dec 19, 2012 PART B [id number] KT RODAS PATIENT MEDICARE (WNR) MEDICARE (M) PART B Dec 19, 2012 PART B [id number] [phone] KT RODAS PATIENT MEDICARE (WNR) MEDICARE (M) PART B Dec 19, 2012 PART B [id number] [phone] KT RODAS PATIENT MEDICARE (WNR) MEDICARE (M) PART B Dec 19, 2012 PART B [id number] [phone] KT RODAS PATIENT MEDICARE (WNR) MEDICARE (M) PART A Nov 19, 2012 PART A [id number] KT RODAS PATIENT MEDICARE (WNR) MEDICARE (M) PART A Nov 19, 2012 PART A [id number] KT RODAS PATIENT MEDICARE (WNR) MEDICARE (M) PART A Nov 19, 2012 PART A [id number] [phone] KT RODAS PATIENT MEDICARE (WNR) MEDICARE (M) PART A Nov 19, 2012 PART A [id number] KT RODAS PATIENT Selected Encounter This section includes the information on record at [place] for the Encounter. Date/Time Encounter Type Encounter Description Reason Provider Source Apr 15, 2023 01:29 PM Outpatient Encounter PRIMARY CARE/MEDICINE MOUNIKA ROBLES Encounter Template Text not used by [place] Plan of Treatment: Future Appointments (+ 6 months) and Future Tests (+/- 45 days) The Plan of Treatment section includes future care activities for the patient from all [place] treatmentfacilities. This section includes future appointments and future orders which are active, pending or scheduled. Future Appointments This section includes appointments that were scheduled to occur 6 months from the date of the Encounter, up to a maximum of 20 appointments. The data comes from all [place] treatment facilities. Appointment Date/Time Appointment Type Appointme nt Facility Name May 19, 2023 07:30 AM AMBULATORY - NONE IN [facility] JINVIRGIL [facility] Sep 06, 2023 02:00 PM [facility] Social History: Smoking Status (Most current) [...] VA-TOBACCO QUIT 5 TO < 15 YRS [facility] Tobacco Use History This section includes a history of the smoking, or tobacco-related health factors, that were collected on or before the date of the Encounter. The data comes from the [place] facility where the Encounter took place. 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 Date/Time Encounter Note(s) Provider Source Apr 15, 2023 01:29 PM PRIMARY CARE SECUR E MESSAGING: LOCAL TITLE: PRIMARY CARE SECURE MESSAGING STANDARD TITLE: PRIMARY CARE SECURE MESSAGING DATE OF NOTE: APR 15, 2023@13:29 ENTRY DATE: APR 15, 2023@13:29:20 AUTHOR: BERNICE ROBLES EXP COSIGNER: URGENCY: STATUS: COMPLETED PRIMARY CARE SECURE MESSAGING Has ADDENDA ------Original Message -------- Sent: 04/14/2023 02:46 PM ET From: LARRY RODAS To: Maggie LARKIN_PRIMARY CARE_[facility]OP[facility] Subject: Test:Colonoscopy Referral Attachments: [id number].docx (29.34 KB), [id number].pdf (410.36 KB) Letters attached as requested /sunni/ BERNICE ROBLES RN REGISTERED NURSE Signed: 04/15/2023 13:29 04/15/2023 ADDENDUM STATUS: COMPLETED Colonoscopy consult has been placed. /sunni/ BERNICE ROBLES RN REGISTERED NURSE Signed: 04/15/2023 13:29 05/30/2023 ADDENDUM STATUS: COMPLETED Follow Up Colonoscopy: Colonoscopy is due based on information available to this reminder. Prior/outside Colonoscopy results: Date: May 19, 2023 Colonoscopy reminder set 1 year from MAY 30, 2023. Comment: -Internal hemorroids.-Diverticulo sis in entire examined colon.-One 5mm polypin descending colon,removed.-One 20mm polyp in transverse colon tattooed.Repeat 1 Yr for surveillance. Document sent to scan through Right Fax. /sunni/ CHANDRAKANT CHARLES LPN LICENSED PRACTICAL NURSE Signed: 05/30/2023 09:06 BERNICE ROBLES [facility]
--- OUTSIDE RECORDS SUMMARY | 2024-03-09 11:11 | XMS_ITS | Encounter Summary ---
Author Name [facility] [place] [facility] [place] Address [address] [place] [address] Care Team Providers Care Breastfeeding Peer Counselor Name Role Phone MARICRUZ BARBOSA Primary Care [...] Name Patient's Relationship to Policy Gudino [facility] FEDERAL PREFERRED PROVIDER ORGANIZAT ION (PPO) BASIC SELF Mar 22, 2009 [id number] [phone] KT RODAS PATIENT BCBS [place] [facility] PREFERRED PROVIDER ORGANIZAT ION (PPO) BASIC INDIV IDUAL Mar 22, 2009 111 [id number] KT RODAS PATIENT [employer] FEPRX PLAN PRESCRIPT ION CAREM ARK FEPRX Mar 21, 2010 [id number] KT RODAS PATIENT MEDICARE (WNR) MEDICARE (M) PART B Dec 19, 2012 PART B [id number] KT RODAS PATIENT MEDICARE (WNR) MEDICARE (M) PART B Dec 19, 2012 PART B [id number] [phone] KT RODAS PATIENT MEDICARE (WNR) MEDICARE (M) PART B Dec 19, 2012 PART B [id number] KT RODAS PATIENT MEDICARE (WNR) MEDICARE (M) PART B Dec 19, 2012 PART B [id number] [phone] KT RODAS PATIENT MEDICARE (WNR) MEDICARE (M) PART A Nov 19, 2012 PART A [id number] KT RODAS PATIENT MEDICARE (WNR) MEDICARE (M) PART A Nov 19, 2012 PART A [id number] KT RODAS PATIENT MEDICARE (WNR) MEDICARE (M) PART A Nov 19, 2012 PART A [id number] KT RODAS PATIENT MEDICARE (WNR) MEDICARE (M) PART A Nov 19, 2012 PART A [id number] KT RODAS PATIENT Selected Encounter This section includes the information on record at [place] for the Encounter. Date/Time Encounter Type Encounter Description Reason Pro vider Source Mar 09, 2023 12:25 PM Outpatient Encounter ADMIN PAT ACTIVTIES (MASNONCT) IHE Encounter Template Text not used by [place] Plan of Treatment: Future Appointments (+ 6 months) and Future Tests (+/- 45 days) The Plan of Treatment section includes future care activities for the patient from all [place] treatmentfacilities. This section includes future appointments and future orders which are active, pending or scheduled. Future Appointments This section includes appointments that were scheduled to occur 6 months from the date of the Encounter, up to a maximum of 20 appointments. The data comes from all [place] treatment facilities. Appointment Date/Time Appointment Type Appointme nt Facility Name May 19, 2023 07:30 AM AMBULATORY - NONE [place] [facility] JINCHVIRGIL [facility] Sep 06, 2023 02:00 PM [facility] Social History: Smoking Status (Most current) and Tobacco Use (All prior to encounter date) This section includes the most current, and the historical, smoking and tobacco- related health factors from the [facility] facility where the Encounter took place. Current Smoking Status This section includes the most current smoking, or tobacco-related health factor, from the [place] facility where the Encounter took place. Date/Time Current Smoking Status Comment Facil ity Oct 21, 2022 10:25 AM AR-TOBACCO QUIT 5 TO < 15 YRS [facility] Tobacco Use History This section includes a history of the smoking, or tobacco-related health factors, that were collected on or before the date of the Encounter. The data comes from the [place] facility where the Encounter took place. 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 Date/Time Encounter Note(s) Provider Source Mar 09, 2023 12:26 PM PREVENTIVE MEDICIN E RISK ASSESSMENT SCREENING NOTE: LOCAL TITLE: LUNG CANCER SCREENING DOCUMENTATION STANDARD TITLE: PREVENTIVE MEDICINE RISK ASSESSMENT SCREENING NO DATE OF NOTE: MAR 09, 2023@12:26 ENTRY DATE: MAR 09, 2023@12:26:21 AUTHOR: LUPE RAVI COSIGNER: URGENCY: STATUS: COMPLETED This documentation serves to satisfy the Initial provider clinical reminder for LCS, that was previously completed, but has reactivated, with new order for LDCT placed. No clinical exclusions, patient is a current candidate for the lung cancer screening program. Patient agrees to lung cancer screening. Lung cancer screening information provided and low dose CT will be ordered. Patient currently uses cigarettes and does not want assistance with smoking cessation at this time. Humphrey due for LDCT scan 12/25/2023. Order placed, held for PCP signature. /sunni/ NANDA SCALESN,RN. LUNG CANCER SCREENING NURSE Signed: 03/09/2023 12:28 [facility]
--- OUTSIDE RECORDS SUMMARY | 2024-03-09 11:11 | XMS_ITS ---
Author Name [facility] [place] [facility] [place] [facility] [place] Address [address] [place] [address] Care Team Providers Care Salvage Determiner Name Role Phone MARICRUZ BARBOSA Primary Care [...] Name Patient's Relationship to Policy Gudino [facility] FEDERAL PREFERRED PROVIDER ORGANIZAT ION (PPO) BASIC SELF Mar 22, 2009 [id number] [phone] KT RODAS PATIENT BCBS [facility] PREFERRED PROVIDER ORGANIZAT ION (PPO) BASIC INDIV IDUAL Mar 22, 2009 [id number] KT RODAS PATIENT [employer] FEPRX PLAN PRESCRIPT ION CAREM ARK FEPRX Mar 21, 2010 [id number] KT RODAS PATIENT MEDICARE (WNR) MEDICARE (M) PART B Dec 19, 2012 PART B [id number] KT RODAS PATIENT MEDICARE (WNR) MEDICARE (M) PART B Dec 19, 2012 PART B [id number] KT RODAS PATIENT MEDICARE (WNR) MEDICARE (M) PART B Dec 19, 2012 PART B [id number] [phone] KT ROADS PATIENT MEDICARE (WNR) MEDICARE (M) PART B Dec 19, 2012 PART B [id number] KT RODAS PATIENT MEDICARE (WNR) MEDICARE (M) PART A Nov 19, 2012 PART A [id number] [phone] KT RODAS PATIENT MEDICARE (WNR) MEDICARE (M) PART A Nov 19, 2012 PART A [id number] KT RODAS PATIENT MEDICARE (WNR) MEDICARE (M) PART A Nov 19, 2012 PART A [id number] KT RODAS PATIENT MEDICARE (WNR) MEDICARE (M) PART A Nov 19, 2012 PART A [id number] [phone] KT RODAS PATIENT Selected Encounter This section includes the information on record at [place] for the Encounter. Date/Time Encounter Type Encounter Description Reason Pro vider Source May 31, 2023 11:42 AM Outpatient Encounter PRIMARY CARE/MEDICINE IHE Encounter Template Text not used by [place] Plan of Treatment: Future Appointments (+ 6 months) and Future Tests (+/- 45 days) The Plan of Treatment section includes future care activities for the patient from all [place] treatmentfacilities. This section includes future appointments and future orders which are active, pending or scheduled. Future Appointments This section includes appointments that were scheduled to occur 6 months from the date of the Encounter, up to a maximum of 20 appointments. The data comes from all [place] treatment facilities. Appointment Date/Time Appointment Type Appointme nt Facility Name Sep 06, 2023 02:00 PM [facility] Nov 18, 2023 08:45 AM [facility] Nov 23, 2023 09:15 AM [facility] Nov 23, 2023 09:30 AM [facility] - [facility] Social History: Smoking Status (Most current) and Tobacco Use (All prior to encounter date) This section includes the most current, and the historical, smoking and tobacco- related health factors from the VA facility where the Encounter took place. Current Smoking Status This section includes the most current smoking, or tobacco-related health factor, from the [place] facility where the Encounter took place. Date/Time Current Smoking Status Comment Jarrod [email or web address] Oct 21, 2022 10:25 AM VA-TOBACCO FORMER USER [facility] Tobacco Use History This section includes a history of the smoking, or tobacco-related health factors, that were collected on or before the date of the Encounter. The data comes from the [place] facility where the Encounter took place. Date/Time Smoking Status/Tobacco Use Comment Johnie acmonse Oct 21, 2022 10:25 AM VA-TOBACCO QUIT 5 TO < 15 YRS [facility] Oct 01, 2021 09:59 AM VA-TOBACCO DOESNT USE WI 30 MIN WAKEUP [place] [place] [facility] Oct 01, 2021 09:59 AM VA-TOBACCO USE 30 YEARS OR MORE OR [facility] [place] [place] [facility] Oct 01, 2021 09:59 AM VA-TOBACCO USE ADVICE [facility] Oct 01, 2021 09:59 AM VA-TOBACCO USE PENSION MANAGER NO [place] [facility] [place] [place] [facility] Oct 01, 2021 09:59 AM VA-TOBACCO USE MED NO [facility] Oct 01, 2021 09:59 AM VA-TOBACCO USER EVERY DAY [facility] Encounter Notes: All associated encounter notes This section contains the clinical notes associated to the Encounter. Date/Time Encounter Note(s) Provider Source May 31, 2023 11:42 AM MEDICATION MGT NOT E: LOCAL TITLE: OUTPATIENT MEDICATION REQUEST STANDARD TITLE: MEDICATION MGT NOTE DATE OF NOTE: MAY 31, 2023@11:42 ENTRY DATE: MAY 31, 2023@11:42:26 AUTHOR: KAITLIN PEÑA EXP COSIGNER: URGENCY: STATUS: COMPLETED Medication Request Date of Request: May Please renew and mail. ASPIRIN TAB,EC 81MG TAKE ONE TABLET BY MOUTH ONCE DAILY TO PREVENT STROKE/HEART ATTACK Quantity: 120 Refills: 3 Indication: FOR BLOOD CLOT PREVENTION FOLLOWING PCI /es/ KAITLIN PEÑA RN REGISTERED NURSE Signed: 05/31/2023 11:42 Receipt Acknowledged By: 05/31/2023 15:28 /es/ DARSHANA DE OLIVEIRA NP NURSE PRACTITIONER KAITLIN PEÑA
--- OUTSIDE RECORDS SUMMARY | 2024-03-09 11:12 | XMS_ITS | Encounter Summary ---
Author Name [facility] [place] Address [address] [place] [address] Care Team Providers Care Grocery Bagger Name Role Phone MARICRUZ BARBOSA Primary Care [...] Name Patient's Relationship to Policy Gudino JONATHAN [facility] FEDERAL PREFERRED PROVIDER ORGANIZAT ION (PPO) BASIC SELF Mar 22, 2009 111 [id number] [phone] KT RODAS PATIENT BCBS [facility] PREFERRED PROVIDER ORGANIZAT ION (PPO) BASIC INDIV IDUAL Mar 22, 2009 111 [id number] KT RODAS PATIENT [employer] FEPRX PLAN PRESCRIPT ION [employer] FEPRX Mar 21, 2010 [id number] KT RODAS PATIENT MEDICARE (WNR) MEDICARE (M) PART B Dec 19, 2012 PART B [id number] KT RODAS PATIENT MEDICARE (WNR) MEDICARE (M) PART B Dec 19, 2012 PART B [id number] [phone] KT RODAS PATIENT MEDICARE (WNR) MEDICARE (M) PART B Dec 19, 2012 PART B [id number] KT RODAS PATIENT MEDICARE (WNR) MEDICARE (M) PART B Dec 19, 2012 PART B [id number] KT RODAS PATIENT MEDICARE (WNR) MEDICARE (M) PART A Nov 19, 2012 PART A [id number] KT RODAS PATIENT MEDICARE (WNR) MEDICARE (M) PART A Nov 19, 2012 PART A [id number] KT RODAS PATIENT MEDICARE (WNR) MEDICARE (M) PART A Nov 19, 2012 PART A [id number] KT RODAS PATIENT MEDICARE (WNR) MEDICARE (M) PART A Nov 19, 2012 PART A [id number] KT RODAS PATIENT Selected Encounter This section includes the information on record at [place] for the Encounter. Date/Time Encounter Type Encounter Description Reason Provider Source Nov 18, 2023 08:45 AM OFF/OP EST JULY X REQ PHY/QHP PRIMARY CARE/MEDICINE ICD-10-CM L03.90 Cellulitis, unspecified JOSE PAYNE Marc Encounter Template Text not used by [place] Assessments - Encounter Diagnoses This section includes the primary and secondary diagnoses documented for the Encounter. Date/Time Primary/Secondary Diagnosis Diagnosis Name Provider Source Dec 06, 2023 11:20 AM PRIMARY Cellulitis, unspecified JOSE PAYNE [place] Plan of Treatment: Future Appointments (+ 6 months) and Future Tests (+/- 45 days) The Plan of Treatment section includes future care activities for the patient from all [place] treatmentfacilities. This section includes future appointments and future orders which are active, pending or scheduled. Future Appointments This section includes appointments that were scheduled to occur 6 months from the date of the Encounter, up to a maximum of 20 appointments. The data comes from all [place] treatment facilities. Appointment Date/Time Appointment Type Appointme nt Facility Name Nov 23, 2023 09:15 AM [facility]ULATORY - [facility]ICINE [facility] Nov 23, 2023 09:30 AM [facility] Dec 26, 2023 11:00 AM [facility] NONE [facility] [place] [facility] Jan 19, 2024 03:00 PM AMBULATORY [facility] MEDICINE [facility] [place] [facility] Feb 23, 2024 09:30 AM [facility] [place] [facility] Mar 05, 2024 10:00 [facility] Vital Signs: All taken on the encounter date This section contains inpatient and outpatient Vital Signs collected on the date of the Encounter. Date/Time Temperature Pulse Blood Pressure Respiratory Rate SP02 Pain Height Weight Body Mass Index Source Nov 18, 2023 08:57 AM 98.1 69 148/76 16 97 1 [facility] Social History: Smoking Status (Most current) and Tobacco Use (All prior to encounter date) This section includes the most current, and the historical, smoking and tobacco- related health factors from the [place] facility where the Encounter took place. Current Smoking Status This section includes the most current smoking, or tobacco-related health factor, from the [place] facility where the Encounter took place. Date/Time Current Smoking Status Comment Facil ity Sep 29, 2020 10:30 AM VA-TOBACCO USER EVERY DAY [place] Tobacco Use History This section includes a history of the smoking, or tobacco-related health factors, that were collected on or before the date of the Encounter. The data comes from the [place] facility where the Encounter took place. 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 NO [place] Sep 29, 2020 10:30 AM VA-TOBACCO USE MED [facility] Sep 29, 2020 10:30 AM VA-TOBACCO USER EVERY DAY [place] Feb 20, 2019 11:59 AM VA-TOBACCO DOESNT USE WI 30 MIN WAKEUP [place] Feb 20, 2019 11:59 AM VA-TOBACCO USE 30 YEARS OR MORE [place] Feb 20, 2019 11:59 AM VA-TOBACCO USE ADVICE [place] Feb 20, 2019 11:59 AM VA-TOBACCO USE CISCO CERTIFIED INTERNETWORK EXPERT NO [place] Feb 20, 2019 11:59 AM VA-TOBACCO USE MED NO [place] Feb 20, 2019 11:59 AM VA-TOBACCO USER EVERY DAY [place] Feb 13, 2018 09:33 AM VA-TOBACCO DOESNT USE WI 30 MIN WAKEUP [place] Feb 13, 2018 09:33 AM VA-TOBACCO USE 30 YEARS OR MORE [place] Feb 13, 2018 09:33 AM VA-TOBACCO USE ADVICE [place] Feb 13, 2018 09:33 AM VA-TOBACCO USE CISCO CERTIFIED INTERNETWORK EXPERT NO [place] Feb 13, 2018 09:33 AM VA-TOBACCO USE MED NO [place] Feb 13, 2018 09:33 AM VA-TOBACCO USER EVERY DAY [place] Feb 09, 2017 09:29 AM QUIT TOBACCO USE 1 -7 YEARS AGO [place] Feb 09, 2016 03:04 PM QUIT TOBACCO USE 1 -7 YEARS AGO 1 and half packed a day but currently using E [facility]ig. [place] Dec 11, 2014 10:52 AM QUIT TOBACCO USE 1 -7 YEARS AGO [place] Jan 24, 2013 09:31 AM V1-PT DECLINES REF TO TOBACCO CESS PRGM [place] Jan 24, 2013 09:31 AM V1-PT DECLINES TOB ACCO CESSATION MEDS [place] Jan 24, 2013 09:31 AM V1-PT NOT INTEREST ED IN QUIT TOBACCO USE [place] Oct 24, 2012 12:49 PM CURRENT SMOKER one in a half to two packs per day [place] Encounter Notes: All associated encounter notes This section contains the clinical notes associated to the Encounter. Date/Time Encounter Note(s) Provider Source Nov 18, 2023 08:58 AM PRIMARY CARE NOTE: LOCAL TITLE: WALK-IN NOTE PRIMARY CARE (T) STANDARD TITLE: PRIMARY CARE NOTE DATE OF NOTE: NOV 18, 2023@08:58 ENTRY DATE: NOV 18, 2023@08:58:09 AUTHOR: JOSE PAYNE EXP COSIGNER: URGENCY: STATUS: COMPLETED Data: 77year old MALE [place] reports to Primary Care clinic for Walk-In visit. [place]'s PCP is JULIETA MOBLEY, last visit with PCP was , next visit scheduled for . Today Vet walks in to clinic to have abdomen checked. cellulitis Last recorded Vital Signs are: Temperature:98.1 F [36.7 C] (11/18/2023 08:57) Pulse:69 (11/18/2023 08:57) Blood Pressure:148/76 (11/18/2023 08:57) Respiration:16 (11/18/2023 08:57) Pain:1 (11/18/2023 08:57) Vet reports current allergies are: Remote Allergy Data No Remote Allergy/ADR Data available for this patient Current Medications from Active Med list include: Active Outpatient Medications (including Supplies): Active Outpatient Medications Status = 1) AMLODIPINE BESYLATE 10MG TAB TAKE ONE TABLET BY MOUTH ACTIVE ONCE DAILY FOR BLOOD PRESSURE/HEART, DO NOT TAKE WITH GRAPEFRUIT JUICE 2) ASPIRIN 81MG EC TAB TAKE ONE TABLET BY MOUTH ONCE ACTIVE DAILY TO PREVENT STROKE/HEART ATTACK 3) ATORVASTATIN CALCIUM 40MG TAB TAKE ONE-HALF TABLET BY ACTIVE MOUTH AT BEDTIME FOR CHOLESTEROL 4) HYDROCORTISONE 1% CREAM APPLY A THIN LAYER TOPICALLY ACTIVE ONCE DAILY NEEDED FOR ITCHING 5) OMEPRAZOLE 20MG EC CAP TAKE ONE CAPSULE BY MOUTH ACTIVE EVERY MORNING 30 MINUTES BEFORE BREAKFAST 6) SILDENAFIL CITRATE 100MG TAB TAKE ONE TABLET BY MOUTH ACTIVE ONCE DAILY NEEDED FOR ERECTILE DYSFUNCTION TAKE 1 HOUR PRIOR TO SEXUAL ACTIVITY Active Non-VA Medications Status = 1) Non-VA VITAMIN D3 (CHOLECALCIFEROL) TAB BY MOUTH ACTIVE DAILY 7 Total Medications Action: seen at [facility] ED for possible abscess to abdomen. DX with cellulitis. CT Neg of abdomen. Started on Doxycycline. Has last dose this morning States area looks better Denies pain at this time Right upper abdomen with area of induration, mild erythema with small open wound in center draining sero/sang fluid States area is non tender States draining small amount daily Denies fever or chills this week reports area is much better overall. Advised [place] to continue to keep area clean and dry. Change dressing daily and as needed If increase pain or drainage over the weekend he is to go to the hospital. If area remains the same he can RTC next week for re-evaluation [place] in agreement with plan. /sunni/ JOSE PAYNE RN PRIMARY CARE RN Signed: 11/18/2023 10:14 JOSE PAYNE [place]
--- OUTSIDE RECORDS SUMMARY | 2024-03-09 11:12 | XMS_ITS | Encounter Summary ---
Author Name [facility] [place] [place] [facility] [place] [facility] [place] Address [address] [place] [address] Care Team Providers Care Roll Handler Name Role Phone STACY COOPER Primary Care Provider Unavailabl e Insurance Providers: [...] Name Patient's Relationship to Policy Gudino JONATHAN [facility] FEDERAL PREFERRED PROVIDER ORGANIZAT ION (PPO) BASIC SELF Mar 22, 2009 [id number] KT RODAS PATIENT BCBS [facility] PREFERRED PROVIDER ORGANIZAT ION (PPO) BASIC INDIV IDUAL Mar 22, 2009 [id number] KT RODAS PATIENT [employer] FEPR[employer] PLAN PRESCRIPT ION [employer] FEPRX Mar 21, 2010 [id number] KT RODAS PATIENT MEDICARE (WNR) MEDICARE (M) PART B Dec 19, 2012 PART B [id number] KT RODAS PATIENT MEDICARE (WNR) MEDICARE (M) PART B Dec 19, 2012 PART B [id number] KT RODAS PATIENT MEDICARE (WNR) MEDICARE (M) PART B Dec 19, 2012 PART B [id number] KT RODAS PATIENT MEDICARE (WNR) MEDICARE (M) PART B Dec 19, 2012 PART B [id number] KT RODAS PATIENT MEDICARE (WNR) MEDICARE (M) PART A Nov 19, 2012 PART A [id number] [phone] KT RODAS PATIENT MEDICARE (WNR) MEDICARE (M) PART A Nov 19, 2012 PART A [id number] KT RODAS PATIENT MEDICARE (WNR) MEDICARE (M) PART A Nov 19, 2012 PART A [id number] [phone] KT RODAS PATIENT MEDICARE (WNR) MEDICARE (M) PART A Nov 19, 2012 PART A [id number] [phone] KT RODAS PATIENT Selected Encounter This section includes the information on record at [place] for the Encounter. Date/Time Encounter Type Encounter Description Reason Provider Source Nov 23, 2023 09:15 AM OFF/OP EST JULY X REQ PHY/QHP PRIMARY CARE/MEDICINE ICD-10-CM L03.90 Cellulitis, unspecified JOSE PAYNE Marc Encounter Template Text not used by [place] Assessments - Encounter Diagnoses This section includes the primary and secondary diagnoses documented for the Encounter. Date/Time Primary/Secondary Diagnosis Diagnosis Name Provider Source Dec 10, 2023 08:52 AM PRIMARY Cellulitis, unspecified JOSE PAYNE [place] Plan of Treatment: Future Appointments (+ 6 [...] Date/Time Appointment Type Appointme nt Facility Name Dec 26, 2023 11:00 AM [facility] Jan 19, 2024 03:00 PM AM[facility] - [place]ICINE [facility] [place] [facility] Feb 23, 2024 09:30 AM AMBULATORY - MEDICINE [place] [facility] [place] [facility] Mar 05, 2024 10:00 AM AMBULATORY - MEDICINE [facility] Vital Signs: All taken on the encounter date This section contains inpatient and outpatient Vital Signs collected on the date of the Encounter. Date/Time Temperature Pulse Blood Pressure Respiratory Rate SP02 Pain Height Weight Body Mass Index Source Nov 23, 2023 09:33 AM 97.9 81 130/76 18 97 0 [facility] Social History: Smoking Status (Most current) and Tobacco Use (All prior to encounter date) This section includes the most current, and the historical, smoking and tobacco- related health factors from the [place] facility where the Encounter took place. Current Smoking Status This section includes the most current smoking, or tobacco-related health factor, from the [place] facility where the Encounter took place. Date/Time Current Smoking Status Comment Facil [facility] Sep 29, 2020 10:30 AM VA-TOBACCO USER EVERY DAY [place] Tobacco Use History This section includes a history of the smoking, or tobacco-related health factors, that were collected on or before the date of the Encounter. The data comes from the [place] facility where the Encounter took place. Date/Time Smoking Status/Tobacco Use Comment F acility Sep 29, 2020 10:30 AM VA-TOBACCO USE 30 YEARS OR MORE [place] Sep 29, 2020 10:30 AM VA-TOBACCO USE ADVICE [place] Sep 29, 2020 10:30 AM VA-TOBACCO USE CARDIAC TECHNICIAN [facility] Sep 29, 2020 10:30 AM VA-TOBACCO USE MED [facility] Sep 29, 2020 10:30 AM VA-TOBACCO USER EVERY DAY [place] Feb 20, 2019 11:59 AM VA-TOBACCO DOESNT USE WI 30 MIN WAKEUP [place] Feb 20, 2019 11:59 AM VA-TOBACCO USE 30 YEARS OR MORE [place] Feb 20, 2019 11:59 AM VA-TOBACCO USE ADVICE [place] Feb 20, 2019 11:59 AM VA-TOBACCO USE CARDIAC TECHNICIAN [facility] Feb 20, 2019 11:59 AM VA-TOBACCO USE MED [facility] Feb 20, 2019 11:59 AM VA-TOBACCO USER EVERY DAY [place] Feb 13, 2018 09:33 AM VA-TOBACCO DOESNT USE WI 30 MIN WAKEUP [place] Feb 13, 2018 09:33 AM VA-TOBACCO USE 30 YEARS OR MORE [place] Feb 13, 2018 09:33 AM VA-TOBACCO USE ADVICE [place] Feb 13, 2018 09:33 AM VA-TOBACCO USE CARDIAC TECHNICIAN NO [place] Feb 13, 2018 09:33 AM VA-TOBACCO USE MED NO [place] Feb 13, 2018 09:33 AM VA-TOBACCO USER EVERY DAY [place] Feb 09, 2017 09:29 AM QUIT TOBACCO USE 1 -7 YEARS AGO [place] Feb 09, 2016 03:04 PM QUIT TOBACCO USE 1 -7 YEARS AGO 1 and half packed a day but currently using E Cig. [place] Dec 11, 2014 10:52 AM QUIT TOBACCO USE 1 -7 YEARS AGO [place] Jan 24, 2013 09:31 AM V1-PT DECLINES REF TO TOBACCO CESS PRGM [place] Jan 24, 2013 09:31 AM V1-PT DECLINES TOB ACCO CESSATION MEDS [place] Jan 24, 2013 09:31 AM V1-PT NOT INTEREST ED IN QUIT TOBACCO USE [place] Oct 24, 2012 12:49 PM CURRENT SMOKER one in a half to two packs per day [place] Encounter Notes: All associated encounter notes This section contains the clinical notes associated to the Encounter. Date/Time Encounter Note(s) Provider Source Nov 23, 2023 09:34 AM PRIMARY CARE NOTE: LOCAL TITLE: WALK-IN NOTE PRIMARY CARE (T) STANDARD TITLE: PRIMARY CARE NOTE DATE OF NOTE: NOV 23, 2023@09:34 ENTRY DATE: NOV 23, 2023@09:34:23 AUTHOR: JOSE PAYNE EXP COSIGNER: URGENCY: STATUS: COMPLETED Data: 77year old MALE reports to Primary Care clinic for Walk-In visit. 's PCP is JULIETA MOBLEY, last visit with PCP was , next visit scheduled for . Today Vet walks in to clinic with complaint of continued redness to abdomen Last recorded Vital Signs are: Temperature:97.9 F [36.6 C] (11/23/2023 09:33) Pulse:81 (11/23/2023 09:33) Blood Pressure:130/76 (11/23/2023 09:33) Respiration:18 (11/23/2023 09:33) Pain:0 (11/23/2023 09:33) Vet reports current allergies are: Remote Allergy [...] MOUTH ACTIVE DAILY 7 Total Medications Action: see sick call note from 11/18/23 Area on abdomen with slight improvement. No open area noted, slight erythema noted 2.0 cm x 4.5 cm round area of induration. elevated center is 1.5 cm round Denies pain referred to Stacy Copoer CEO & BOARD DIRECTOR for evaluation. Reminders Advance Directive Screen MH AD Oct 21 Toxic Exposure Screening Oct 21 Homelessness/Food Insecurity Screen Oct 21 Tobacco Use Screening Oct 21 Medication Reconciliation DUE NOW Sexual Orientation Oct 21 Eye Care At-Risk Eval (Provider) DUE NOW Hepatitis A Vaccine for High Risk DUE NOW (Optional) Whole Health Documentation DUE NOW Response: /sunni/ JOSE PAYNE RN PRIMARY CARE RN Signed: 11/23/2023 09:42 JOSE [place]
--- OUTSIDE RECORDS SUMMARY | 2024-03-09 11:12 | XMS_ITS | Encounter Summary ---
Author Name [facility] [place] [place] [facility] [place] Address [address] [place] [address] Care Team Providers Care Rehab Director Occupational Therapist Name Role Phone MARICRUZ BARBOSA Primary Care [...] Name Patient's Relationship to Policy Gudino JONATHAN [facility] FEDERAL PREFERRED PROVIDER ORGANIZAT ION (PPO) BASIC SELF Mar 22, 2009 [id number] [phone] KT RODAS PATIENT BCBS [facility] PREFERRED PROVIDER ORGANIZAT ION (PPO) BASIC INDIV IDUAL Mar 22, 2009 [id number] KT RODAS PATIENT [place] FEPRX PLAN PRESCRIPT ION [facility] FEPRX Mar 21, 2010 [id number] KT RODAS PATIENT MEDICARE (WNR) MEDICARE (M) PART B Dec 19, 2012 PART B [id number] KT RODAS PATIENT MEDICARE (WNR) MEDICARE (M) PART B Dec 19, 2012 PART B [id number] KT RODAS PATIENT MEDICARE (WNR) MEDICARE (M) PART B Dec 19, 2012 PART B [id number] KT RODAS PATIENT MEDICARE (WNR) MEDICARE (M) PART B Dec 19, 2012 PART B [id number] TK RODAS PATIENT MEDICARE (WNR) MEDICARE (M) PART A Nov 19, 2012 PART A [id number] KT RODAS PATIENT MEDICARE (WNR) MEDICARE (M) PART A Nov 19, 2012 PART A [id number] KT RODAS PATIENT MEDICARE (WNR) MEDICARE (M) PART A Nov 19, 2012 PART A [id number] KT RODAS PATIENT MEDICARE (WNR) MEDICARE (M) PART A Nov 19, 2012 PART A [id number] KT RODAS PATIENT Selected Encounter This section includes the information on record at [place] for the Encounter. Date/Time Encounter Type Encounter Description Reason Pro vider Source Sep 19, 2023 12:54 PM Outpatient Encounter PRIMARY CARE/MEDICINE IHE Encounter [...] Appointment Type Appointme nt Facility Name Nov 18, 2023 08:45 [facility] Nov 23, 2023 09:15 [facility] Nov 23, 2023 09:30 AM [facility] Dec 26, 2023 11:00 AM [place] [facility] [place] [facility] Jan 19, 2024 03:00 PM [place] [facility] [place] [facility] Feb 23, 2024 09:30 AM AMBULATORY - MEDICINE [facility] Mar 05, 2024 10:00 AM AMBULATORY - MEDICINE [facility] Lab Results: +/- 30 days of the encounter This section includes the Chemistry and Hematology Lab Results on record with [place] for the patient. Radiology Reports and Pathology Reports are provided separately, in subsequent sections. Lab Results This section contains the Chemistry/Hematology Results that were resulted 30 days before or 30 daysafter the date of the Encounter. Date/Time Source Result Type Result - Unit Interpretation Reference Range Comment Sep 12, 2023 08:42 AM [facility] BASIC METABOLIC PANEL (fasting) Specime n Type: SERUM No comment entered. Ordering Provider: FARZANA MOBLEY Report Released Date/Time: Sep 06, 2023 02:39 PM Reporting Lab: [address] [address] Performing Lab: [address] [address] UREA NITROGEN 10 mg/dL 7-25 GLUCOSE 108 mg/dL H 65-100 SODIUM 137 mmol/L 135-145 POTASSIUM 4.2 mmol/L 3.5-5.0 CHLORIDE 104 mmol/L 100-110 CO2 22 meq/L 20-30 CREATININE, Serum 0.98 mg/dL 0.50-1.40 eGFR(CKD-EPI 2020) 80 mL/min >60 Sep 12, 2023 08:42 AM [facility] LIPID PANEL FASTING Specimen Type: SERUM No comment entered. Ordering Provider: FARZANA MOBLEY Report Released Date/Time: Sep 06, 2023 02:39 PM Reporting Lab: [address] [address] Performing Lab: [address] [address] CHOLESTEROL 158 mg/dL TRIGLYCERIDE 115 mg/dL 0-150 LDL calculated 85 mg/dL 0-129 CHOL/HDL 3.2 HDL CHOLESTEROL 50 mg/dL 40-60 Sep 12, 2023 08:42 AM [facility] HEMOGLOBIN A1C PANEL Specimen Type: BLOOD Comment: Values obtained from A1C measurements can vary. For atypical A1C assays, a reported value of 7.0 could actually be between 6.72 and 7.28 if measured by a reference method. A reported value of 9.0 could actually be between 8.73 and 9.27. Ref: http://www.ngs p.org/CAPdata. asp Ordering Provider: FARZANA MOBLEY Report Released Date/Time: Sep 06, 2023 02:39 PM Reporting Lab: [place] [facility] [address] [address] Performing Lab: [facility] [address] HEMOGLOBIN A1C 5.4 4.0-5.6 Sep 12, 2023 08:42 AM [facility] LIVER FUNCTION Specimen Type: SERUM No comment entered. Ordering Provider: FARZANA MOBLEY Report Released Date/Time: Sep 06, 2023 02:39 PM Reporting Lab: [facility] [address] Performing Lab: [facility] [address] [address] PROTEIN,TOTAL 7.8 g/dL 6.0-8.3 ALBUMIN 4.1 g/dL 3.5-5.0 ALKALINE PHOSPHATASE 88 U/L 40-150 AST 15 U/L 5-34 ALT 16 U/L BILIRUBIN, TOTAL 0.7 mg/dL 0.2-1.2 Sep 12, 2023 08:42 AM [facility] TSH Specimen Type: SERUM No comment entered. Ordering Provider: FARZANA MOBLEY Report Released Date/Time: Sep 06, 2023 02:39 PM Reporting Lab: [facility] [address] [address] Performing Lab: [place] [facility] [address] [address] TSH 1.58 u[IU]/mL 0.35-5.00 Sep 12, 2023 08:42 AM [facility] PSA Specimen Type: SERUM No comment entered. Ordering Provider: FARZANA MOBLEY Report Released Date/Time: Sep 06, 2023 02:39 PM Reporting Lab: [place] [facility] [address] [address] Performing Lab: [place] [facility] [address] PSA < 0.10 ng/mL 0.00-4.00 Sep 12, 2023 08:42 AM [facility] CBC AND DIFF (AUTO) Specimen Type: BLOOD No comment entered. Ordering Provider: FARZANA MOBLEY Report Released Date/Time: Sep 06, 2023 02:39 PM Reporting Lab: [facility] [address] [facility] [address] Performing Lab: [facility] [address] [facility] [address] WBC 14.04 10*3/uL H 4.50-11.00 RBC 5.01 10*6/uL 4.23-5.66 HGB 16.1 g/dL 12.8-17 HCT 45.8 39.2-50.4 MCV 91.4 fL 82-99 MCHC 35.2 g/dL H 30.8-35.1 PLT 303 10*3/uL 140-360 RDW-CV 12.9 12.0-16.0 MONO, ABS 1.28 10*3/uL H 0.30-1.10 MCH 32.1 pg 26.2-32.6 NEUT % 67.0 43.7-75.8 LYMPH % 18.2 14.0-42.3 MONO % 9.1 5.1-13.7 EOS % 4.1 0.4-6.8 BASO % 0.7 0.1-2.0 NEUT, ABS 9.41 10*3/uL H 2.20-7.60 LYMPH, ABS 2.55 10*3/uL 1.00-3.20 EOS, ABS 0.58 10*3/uL H 0.03-0.44 BASO, ABS 0.10 10*3/uL 0.01-0.13 IMMATURE GRAN % 0.9 H 0.0-0.7 IMMATURE GRAN, ABS 0.12 10*3/uL H 0.00-0.06 NRBC % 0.0 0.0-0.0 NRBC, ABS 0.00 10*3/uL 0.00-0.00 Social History: Smoking Status (Most current) and Tobacco Use (All prior to encounter date) This section includes the most current, and the historical, smoking and tobacco- related health factors from the [place] facility where the Encounter took place. Current Smoking Status This section includes the most current smoking, or tobacco-related health factor, from the [place] facility where the Encounter took place. Date/Time Current Smoking Status Comment Jarrod ity Oct 21, 2022 10:25 AM VA-TOBACCO QUIT 5 TO < 15 YRS [place] [facility] Tobacco Use History This section includes a history of the smoking, or tobacco-related health factors, that were collected on or before the date of the Encounter. The data comes from the [place] facility where the Encounter took place. Date/Time Smoking Status/Tobacco Use Comment F acmonse Oct 21, 2022 10:25 AM VA-TOBACCO QUIT 5 TO < 15 YRS [place] [facility] [place] [facility] Oct 01, 2021 09:59 AM VA-TOBACCO DOESNT USE WI 30 MIN WAKEUP [place] [facility] [place] [facility] Oct 01, 2021 09:59 AM VA-TOBACCO USE 30 YEARS OR MORE [place] [facility] [place] [facility] Oct 01, 2021 09:59 AM VA-TOBACCO USE ADVICE [place] [facility] [place] [facility] Oct 01, 2021 09:59 AM VA-TOBACCO USE UNHAIRER NO [place] [facility] [place] [facility] Oct 01, 2021 09:59 AM VA-TOBACCO USE MED NO [place] [facility] [place] [facility] Oct 01, 2021 09:59 AM VA-TOBACCO USER EVERY DAY [place] [facility] [place] [facility] Encounter Notes: All associated encounter notes This section contains the clinical notes associated to the Encounter. Date/Time Encounter Note(s) Provider Source Sep 19, 2023 12:54 PM LETTERS: LOCAL TITLE: PATIENT LETTER (T) STANDARD TITLE: LETTERS DATE OF NOTE: SEP 19, 2023@12:54 ENTRY DATE: SEP 19, 2023@12:54:13 AUTHOR: FARZANA MOBLEY EXP COSIGNER: URGENCY: STATUS: COMPLETED PATIENT LETTER (T) Has [facility] Toll Free Number Primary Care Telephone Assistance can be reached at extension [phone] [facility] scheduling can be reached at extension [phone] [facility] scheduling can be reached at ext [phone] LARRY RODAS [address] [place] [address], [address] Dear Maisha, I reviewed your blood test results. Your fasting glucose level is 108 please watch your diet for carbohydrates and exercise as tolerated. Your white blood cells is mild elevated but chronic. The rest of labs are within normal limits. If you have any questions please call our office back Tuesday to Tuesday from 8 AM to 4 PM; the phone number is [phone]. Sincerely, Dr. Farzana Mobley 09/19/2023 ADDENDUM STATUS: COMPLETED THIS ELECTRONICS ENGINEERING TECHNOLOGIST MAILED LETTER TO . /sunni/ CLAI [employer] SPECIALIST Signed: 09/19/2023 13:22 Sincerely, Your Primary Care Team [facility] [address] [address] [place] [address] [facility] [address] [place] [address] [place] [address] [facility] [address] [facility] [place] [phone] [place] [address] FARZANA MOBLEY [facility]
--- OUTSIDE RECORDS SUMMARY | 2024-03-09 11:12 | XMS_ITS | Encounter Summary ---
Author Name [facility] Organization [facility] [place] Address [address] [place] [id number] Care Team Providers Care Drug Regulatory Affairs Specialist Name Role Phone MARICRUZ BARBOSA Primary Care [...] (PPO) BASIC SELF Mar 22, 2009 [id number] [phone] KT RODAS PATIENT BCBS MA FEP PREFERRED PROVIDER ORGANIZAT ION (PPO) BASIC INDIV IDUAL Mar 22, 2009 [id number] KT RODAS PATIENT [employer] FEPRX PLAN PRESCRIPT ION CAREM ARK FEPRX Mar 21, 2010 [id number] KT RODAS PATIENT MEDICARE (WNR) MEDICARE (M) PART B Dec 19, 2012 PART B [id number] [phone] KT RODAS PATIENT MEDICARE (WNR) MEDICARE (M) PART B Dec 19, 2012 PART B [id number] [phone] KT RODAS PATIENT MEDICARE (WNR) MEDICARE (M) PART B Dec 19, 2012 PART B [id number] [phone] KT RODAS PATIENT MEDICARE (WNR) MEDICARE (M) PART B Dec 19, 2012 PART B [id number] KT RODAS PATIENT MEDICARE (WNR) MEDICARE (M) PART A Nov 19, 2012 PART A [id number] KT ORDAS PATIENT MEDICARE (WNR) MEDICARE (M) PART A Nov 19, 2012 PART A [id number] KT RODAS PATIENT MEDICARE (WNR) MEDICARE (M) PART A Nov 19, 2012 PART A [id number] [phone] KT RODAS PATIENT MEDICARE (WNR) MEDICARE (M) PART A Nov 19, 2012 PART A [id number] [phone] KT RODAS PATIENT Selected Encounter This section includes the information on record at [place] for the Encounter. Date/Time Encounter Type Encounter Description Reason Provider Source Sep 06, 2023 02:00 PM OFFICE O/P EST MOD 30 MIN PRIMARY CARE/MEDICINE ICD-10-CM I10 Essential (primary) hypertension JULIETA MOBLEY Marc Encounter Template Text not used by [place] Assessments - Encounter Diagnoses This section includes the primary and secondary diagnoses documented for the Encounter. Date/Time Primary/Secondary Diagnosis Diagnosis Name Provider Source Oct 06, 2023 04:13 PM PRIMARY Essential (primary) hypertension JULIETA MOBLEY TERRY Oct 06, 2023 04:13 PM SECONDARY Gastro-esophageal reflux disease without esophagitis JULIETA MOBLEY TERRY Oct 06, 2023 04:13 PM SECONDARY Hyperlipidemia, unspecified JULIETA MOBLEY [place] Plan of Treatment: Future Appointments (+ 6 months) and Future Tests (+/- 45 days) The Plan of Treatment section includes future care activities for the patient from all [place] treatmentfacilities. This section includes future appointments and future orders which are active, pending or scheduled. Future Appointments This section includes appointments that were scheduled to occur 6 months from the date of the Encounter, up to a maximum of 20 appointments. The data comes from all [place] treatment facilities. Appointment Date/Time Appointment Type Appointme nt Facility Name Nov 18, 2023 08:45 AM [facility] Nov 23, 2023 09:15 AM [facility] Nov 23, 2023 09:30 AM [facility] Dec 26, 2023 11:00 AM AM[facility]UL[facility]ORY [facility] NONE [facility] Jan 19, 2024 03[facility]00 PM [facility] [place] [facility] Feb 23, 2024 09:30 AM [facility] - [facility]ICINE [facility] [place] [facility] Mar 05, 2024 10:00 AM [facility] Lab Results: +/- 30 days of the encounter This section includes the Chemistry and Hematology Lab Results on record with [place] for the patient. Radiology Reports and Pathology Reports are provided separately, in subsequent sections. Lab Results This section contains the Chemistry/Hematology Results that were resulted 30 days before or 30 daysafter the date of the Encounter. Date/Time Source Result Type Result - Unit Interpretation Reference Range Comment Sep 12, 2023 08:42 AM [facility] BASIC METABOLIC PANEL (fasting) Specime n Type: SERUM No comment entered. Ordering Provider: JULIETA MOBLEY Report Released Date/Time: Sep 06, 2023 02:39 PM Reporting Lab: [address] [address] Performing Lab: [address] [address] UREA NITROGEN 10 mg/dL 7-25 GLUCOSE 108 mg/dL H 65-100 SODIUM 137 mmol/L 135-145 POTASSIUM 4.2 mmol/L 3.5-5.0 CHLORIDE 104 mmol/L 100-110 CO2 22 meq/L 20-30 CREATININE, Serum 0.98 mg/dL 0.50-1.40 eGFR(CKD-EPI 2020) 80 mL/min >60 Sep 12, 2023 08:42 AM [facility] LIPID PANEL FASTING Specimen Type: SERUM No comment entered. Ordering Provider: JULIETA MOBLEY Report Released Date/Time: Sep 06, 2023 02:39 PM Reporting Lab: [address] [address] Performing Lab: [facility] [address] CHOLESTEROL 158 mg/dL TRIGLYCERIDE 115 mg/dL 0-150 LDL calculated 85 mg/dL 0-129 CHOL/HDL 3.2 HDL CHOLESTEROL 50 mg/dL 40-60 Sep 12, 2023 08:42 AM [facility] HEMOGLOBIN A1C PANEL Specimen Type: BLOOD Comment: Values obtained from A1C measurements can vary. For atypical A1C assays, a reported value of 7.0 could actually be between 6.72 and 7.28 if measured by a reference method. A reported value of 9.0 could actually be between 8.73 and 9.27. Ref: http://www.ngs p.org/CAPdata. asp Ordering Provider: JULIETA MOBLEY Report Released Date/Time: Sep 06, 2023 02:39 PM Reporting Lab: [address] [address] Performing Lab: [address] [address] HEMOGLOBIN A1C 5.4 4.0-5.6 Sep 12, 2023 08:42 AM [facility] LIVER FUNCTION Specimen Type: SERUM No comment entered. Ordering Provider: JULIETA MOBLEY Report Released Date/Time: Sep 06, 2023 02:39 PM Reporting Lab: [address] [address] Performing Lab: [address] [address] PROTEIN,TOTAL 7.8 g/dL 6.0-8.3 ALBUMIN 4.1 g/dL 3.5-5.0 ALKALINE PHOSPHATASE 88 U/L 40-150 AST 15 U/L 5-34 ALT 16 U/L BILIRUBIN, TOTAL 0.7 mg/dL 0.2-1.2 Sep 12, 2023 08:42 AM [facility] TSH Specimen Type: SERUM No comment entered. Ordering Provider: JULIETA MOBLEY Report Released Date/Time: Sep 06, 2023 02:39 PM Reporting Lab: [address] [address] Performing Lab: [address] [address] TSH 1.58 u[IU]/mL 0.35-5.00 Sep 12, 2023 08:42 AM [place] PSA Specimen Type: SERUM No comment entered. Ordering Provider: JULIETA MOBLEY Report Released Date/Time: Sep 06, 2023 02:39 PM Reporting Lab: [address] [address] Performing Lab: [address] [address] PSA < 0.10 ng/mL 0.00-4.00 Sep 12, 2023 08:42 AM [facility] CBC AND DIFF (AUTO) Specimen Type: BLOOD No comment entered. Ordering Provider: JULIETA MOBLEY Report Released Date/Time: Sep 06, 2023 02:39 PM Reporting Lab: [address] [address] Performing Lab: [address] [address] WBC 14.04 10*3/uL H 4.50-11.00 RBC 5.01 [...] 0.0 0.0-0.0 NRBC, ABS 0.00 10*3/uL 0.00-0.00 Vital Signs: All taken on the encounter date This section contains inpatient and outpatient Vital Signs collected on the date of the Encounter. Date/Time Temperature Pulse Blood Pressure Respiratory Rate SP02 Pain Height Weight Body Mass Index Source Sep 06, 2023 02:02 PM 83 131/73 94 158 26 [facility] IE Social History: Smoking Status (Most current) and Tobacco Use (All prior to encounter date) This section includes the most current, and the historical, smoking and tobacco- related health factors from the [place] facility where the Encounter took place. Current Smoking Status This section includes the most current smoking, or tobacco-related health factor, from the PA facility where the Encounter took place. Date/Time Current Smoking Status Comment Facil it Sep 29, 2020 10:30 AM VA-TOBACCO USER EVERY DAY [facility] Tobacco Use History This section includes a history of the smoking, or tobacco-related health factors, that were collected on or before the date of the Encounter. The data comes from the [place] facility where the Encounter took place. 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 [facility] Sep 29, 2020 10:30 AM VA-TOBACCO USE MED [facility] Sep 29, 2020 10:30 AM VA-TOBACCO USER EVERY DAY [facility] Feb 20, 2019 11:59 AM VA-TOBACCO DOESNT USE WI 30 MIN WAKEUP [facility] Feb 20, 2019 11:59 AM VA-TOBACCO USE 30 YEARS OR MORE [facility] Feb 20, 2019 11:59 AM VA-TOBACCO USE ADVICE [facility] Feb 20, 2019 11:59 AM 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 [facility] Feb 20, 2019 11:59 AM VA-TOBACCO USE MED [facility] Feb 20, 2019 11:59 AM VA-TOBACCO USER EVERY DAY [facility] Feb 13, 2018 09:33 AM VA-TOBACCO DOESNT USE WI 30 MIN WAKEUP [facility] Feb 13, 2018 09:33 AM VA-TOBACCO USE 30 YEARS OR MORE [facility] Feb 13, 2018 09:33 AM VA-TOBACCO USE ADVICE [facility] Feb 13, 2018 09:33 AM 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 [facility] Dec 11, 2014 10:52 AM QUIT TOBACCO USE 1 -7 YEARS AGO [facility] Jan 24, 2013 09:31 AM V1-PT DECLINES REF TO TOBACCO CESS PRGM [facility] Jan 24, 2013 09:31 AM V1-PT DECLINES TOB ACCO CESSATION MEDS [facility] Jan 24, 2013 09:31 AM V1-PT NOT INTEREST ED IN QUIT TOBACCO USE [facility] Oct 24, 2012 12:49 PM CURRENT SMOKER one in a half to two packs per day [facility] Encounter Notes: All associated encounter notes This section contains the clinical notes associated to the Encounter. Date/Time Encounter Note(s) Provider Source Sep 06, 2023 02:02 PM PREVENTIVE MEDICIN E NURSING NOTE: LOCAL TITLE: CLINICAL REMINDERS/NURSING STANDARD TITLE: PREVENTIVE MEDICINE NURSING NOTE DATE OF NOTE: SEP 06, 2023@14:02 ENTRY DATE: SEP 06, 2023@14:02:45 AUTHOR: SIDDHARTHA DICKEY EXP COSIGNER: URGENCY: STATUS: COMPLETED Suicide Screen: C-SSRS Screening [place] Suicide Severity Rating Scale (C-SSRS) screener 1. Over the past month, have you wished you were or wished you could go to sleep and not wake up? No 2. Over the past month, have you had any actual thoughts of killing yourself? No 3. Over the past month, have you been thinking about how you might do this? Response not required due to responses to other questions. 4. Over the past month, have you had these thoughts and had some intention of acting on them? Response not required due to responses to other questions. 5. Over the past month, have you started to work out or worked out the details of how to kill yourself? Response not required due to responses to other questions. 6. If yes, at any time in the past month did you intend to carry out this plan? Response not required due to responses to other questions. 7. In your lifetime, have you ever done anything, started to do anything, or prepared to do anything to end your life (for example, collected pills, obtained a gun, gave away valuables, went to the roof but didn't jump)? No 8. If YES, was this within the past 3 months? Response not required due to responses to other questions. Depression Screening: Perform PHQ-2 A PHQ-2 screen was performed. The score was 0 which is a negative screen for depression. Over the past two weeks, how often have you been bothered by the following problems? 1. Little interest or pleasure in doing things Not at all 2. Feeling down, depressed, or hopeless Not at all Pneumococcal Conjugate Vaccine (PCV15/PCV20): Refuses PCV vaccine Immunization: PNEUMOCOCCAL CONJUGATE, UNSPECIFIED FORMULATION Refusal Reason: PATIENT DECISION Patient refuses all immunization(s) in the PneumoPCV group Date Documented: 09/06/23 14:03 Influenza Immunization: No influenza vaccination was received during the recent influenza season. Alcohol Use Screen (AUDIT-C): Alcohol Screen: SCREEN FOR ALCOHOL (AUDIT-C) An alcohol screening test (AUDIT-C) was negative (score=4). 1. How often did you have a drink containing alcohol in the past year? Consider a drink to be a 12 ounce can or bottle of regular beer, 8 ounces of malt liquor, a 5 ounce glass of table wine, or a 1.5 ounce shot of liquor (like scotch, gin, or vodka). Two to four times a month 2. How many drinks containing alcohol did you have on a typical day when you were drinking in the past year? One or two drinks 3. How often did you have six or more drinks on one occasion in the past year? Monthly COVID-19 Immunization: Refused Moderna Monovalent COVID-19 vaccine Immunization: COVID-19 (MODERNA), MRNA, LNP-S, PF, 50 MCG/0.5 ML (AGES 12+ YEARS) Refusal Reason: PATIENT DECISION Patient refuses all immunization(s) in the COVID-19 group Date Documented: 09/06/23 14:05 Herpes Zoster (Shingles) Vaccine: The patient declines to receive the recommended dose of zoster (shingles) vaccine. Immunization: ZOSTER RECOMBINANT Refusal Reason: PATIENT DECISION Patient refuses all immunization(s) in the ZOSTER group Date Documented: 09/06/23 14:05 RHS Screen: RHS Screen Environmental Check Upon inquiry, the individual reports that the environment is safe to proceed. Informed Consent to Screen and Document The individual consents to proceed with screening. The individual consents to documentation of responses. PRIMARY SCREEN: In the past 12 months, how often did a current or former intimate partner (e.g., boyfriend, girlfriend, , , sexual partner): 1. Scream or curse at you Never 2. Insult or talk down to you Never 3. Threaten you with harm Never 4. Physically hurt you Never 5. Force or pressure you to have sexual contact against your will, or when you were unable to say no Never ?? The HITS tool (items 1-4 above) is US copyright protected by Je Dennis MD, and the user has full rights to use it throughout the [place] system. PRIMARY SCREEN RESULT: The Primary Screen is NEGATIVE. The individual answered never to all forms of IPV above (i.e., answered never to all 5 items) The individual accepts education and/or resources: No EDUCATION: The individual indicated readiness to learn. Education offered during this session as noted above. The individual indicated understanding by asking relevant questions and making appropriate comments. No barriers to learning were observed or identified. /sunni/ SIDDHARTHA DICKEY LPN Licensed Practical Nurse Signed: 09/06/2023 14:06 SIDDHARTHA DICKEY [place] Sep 06, 2023 12:26 PM PHYSICIAN NOTE: LOCAL TITLE: NOTE STANDARD TITLE: PHYSICIAN NOTE DATE OF NOTE: SEP 06, 2023@12:26 ENTRY DATE: SEP 06, 2023@12:26:57 AUTHOR: JULIETA MOBLEY EXP COSIGNER: URGENCY: STATUS: COMPLETED NOTE Has ADDENDA HISTORY OF PRESENT ILLNESS: first time seen , transferred from Dr Horan LARRY AUGUSTKUSHAL RODAS, is a 77 yo MALE Allen, who presents at the [facility] to meet the new PCP. Active problems - Computerized Problem List is the source for the followin-essential hypertension 2-hyperlipidemia 3-GERD 4- ED The following VA and Non-VA meds were reconciled with patient: Active Outpatient Medications (including Supplies): Issue Date Status Last Fill Active Outpatient Medications Refills Expiration 1) AMLODIPINE BESYLATE 10MG TAB Qty: 90 ACTIVE Issu:05-31-23 for 90 days Sig: TAKE ONE TABLET BY Refills: 3 Last:08-01-23 MOUTH ONCE DAILY FOR BLOOD Expr:05-31-24 PRESSURE/HEART, DO NOT TAKE WITH GRAPEFRUIT JUICE 2) ASPIRIN 81MG EC TAB Qty: 120 for 90 ACTIVE Issu:05-31-23 days Sig: TAKE ONE TABLET BY MOUTH Refills: 3 Last:05-31-23 ONCE DAILY TO PREVENT STROKE/HEART Expr:05-31-24 ATTACK 3) ATORVASTATIN CALCIUM 40MG TAB Qty: 45 ACTIVE Issu:05-31-23 for 90 days Sig: TAKE ONE-HALF TABLET Refills: 3 Last:08-22-23 BY MOUTH AT BEDTIME FOR CHOLESTEROL Expr:05-31-24 4) OMEPRAZOLE 20MG EC CAP Qty: 90 for 90 ACTIVE Issu:04-06-23 days Sig: TAKE ONE CAPSULE BY MOUTH Refills: 1 Last:07-17-23 EVERY MORNING 30 MINUTES BEFORE Expr:04-06-24 BREAKFAST 5) SILDENAFIL CITRATE 100MG TAB Qty: 4 for ACTIVE Issu:05-31-23 30 days Sig: TAKE ONE TABLET BY MOUTH Refills: 3 Last:06-02-23 ONCE DAILY NEEDED FOR ERECTILE Expr:05-31-24 DYSFUNCTION TAKE 1 HOUR PRIOR TO SEXUAL ACTIVITY Start Date Active Non-VA Medications Refills Expiration 1) Non-VA VITAMIN D3 (CHOLECALCIFEROL) TAB ACTIVE Sig: BY MOUTH DAILY 6 Total Medications ALLERGIES: ========= ANTIHYPERTENSIVES,OTHER LAB HISTORY: No new labs HISTORY: PERIOD OF SERVICE - [employer] FROM Aug TO Aug COMBAT SERVICE INDICATED: No REVIEW OF SYSTEMS: No fever, chills No chest pain, shortness of breath No cough No abdominal pain nausea or vomiting No joints pain No headaches or dizziness PHYSICAL EXAMINATION: WD/WN Allen seems to be in NAD S1-S2 positive, RRR, mild sm aortic area SHEEBA, CTA bilateral Abdomen soft nontender to palpation No edema lower extremities AAO x3;ambulates without help ASSESSMENT/PLAN: 1-essential hypertension- BP controlled today in office he states monitors blood pressure weekly and his systolic blood pressure is in low 130s He watches his diet and is active physically around his house and still working 8-qlqhuetledncgy-qznoxabj statins, healthy diet and exercise as tolerated 3-GERD- continue PPI 4-ED- continue meds as needed 5- H/o prostate cancer- h/o prostatectomy more than 20 years ago We will check PSA FOLLOW UP: ========= RTC -6 months follow-up with fasting labs for hypertension hyperlipidemia GERD ED or earlier with any other medical complaints Today's documentation was made using voice recognition software. This note may contain spelling/grammatical errors secondary to this software. Every effort is made to correct errors, but if mistakes are found they need to be taken in context. UPCOMING APPOINTMENTS: 09/06/2023 14:00 CWM/SO/PACT EIGHT WH No barriers; Patient understands and agrees to current treatment plan. If pt has any questions, concerns, or changes in current health status he/she will call or come in to the VA. Medication Reconciliation: Outpatient: Has the patient been taking medications as documented in the EMLR? YES: The patient has been taking medications as documented in the EMLR. Essential Medication List for Review used to complete this medication reconciliation. INCLUDED IN THIS LIST: Alphabetical list of active outpatient prescriptions dispensed from this VA (local) and dispensed from another VA or DoD facility (remote) as well as inpatient orders (local, pending and active), local clinic medications, locally documented non-VA medications, and local prescriptions that have or been discontinued in the past 90 days. - All changes in medications, including all non-VA/Herbal/OTC medications were entered into CPRS. - If there were any medications the patient should no longer take, they were discontinued. - The patient/caregiver was instructed to update this list, discard old lists, and take this list to the next appointment, whether with a VA or non-VA provider. JLV Link Data on this list may not be complete. Please check JLV. Allergies/ADRs (Tool #5) FACILITY ALLERGY/ADR -------- No Remote Allergy/ADR Data available for this patient [facility] [place] [facility] ANTIHYPERTENSIVES,OTHER Med Recon NoGlossary (Tool #1) INCLUDED IN THIS LIST: Alphabetical list of active outpatient prescriptions dispensed from this VA (local) and dispensed from another VA or DoD facility (remote) as well as inpatient orders (local pending and active), local clinic medications, locally documented non-VA medications, and local prescriptions that have or been discontinued in the past 90 days. Non-VA Meds Last Documented On: Feb 09, 2016 NOTE The display of VA prescriptions dispensed from another VA or DoD facility (remote) is limited to active outpatient prescription entries matched to National Drug File at the originating site and may not include some items such as investigational drugs, compounds, etc. NOT INCLUDED IN THIS LIST: Medications self-entered by the patient into personal health records (i.e. [employer]icker) are NOT included in this list. Non-VA medications documented outside this [place], remote inpatient orders (regardless of status) and remote clinic medications are NOT included in this list. The patient and provider must always discuss medications the patient is taking, regardless of where the medication was dispensed or obtained. OUTPT AMLODIPINE BESYLATE 10MG TAB (Status = Active) TAKE ONE TABLET BY MOUTH ONCE DAILY FOR BLOOD PRESSURE/HEART, DO NOT TAKE WITH GRAPEFRUIT JUICE Rx# [id number] Last Released: 07/25/23 Qty/Days Supply: 90 Rx Expiration Date: 05/31/24 Refills Remainin Indication: FOR HIGH BLOOD PRESSURE OUTPT ASPIRIN 81MG EC TAB (Status = Active) TAKE ONE TABLET BY MOUTH ONCE DAILY TO PREVENT STROKE/HEART ATTACK Rx# [id number] Last Released: 06/02/23 Qty/Days Supply: 120/90 Rx Expiration Date: 05/31/24 Refills Remainin Indication: FOR BLOOD CLOT PREVENTION FOLLOWING PCI OUTPT ATORVASTATIN CALCIUM 40MG TAB (Status = Active) TAKE ONE-HALF TABLET BY MOUTH AT BEDTIME FOR CHOLESTEROL Rx# [id number] Last Released: 08/16/23 Qty/Days Supply: 45/90 Rx Expiration Date: 05/31/24 Refills Remainin Indication: FOR HIGH CHOLESTEROL OUTPT OMEPRAZOLE 20MG EC CAP (Status = Active) TAKE ONE CAPSULE BY MOUTH EVERY MORNING 30 MINUTES BEFORE BREAKFAST Rx# [id number] Last Released: 07/18/23 Qty/Days Supply: 90/90 Rx Expiration Date: 04/06/24 Refills Remainin Indication: FOR EXCESSIVE PRODUCTION OF STOMACH ACID OUTPT SILDENAFIL CITRATE 100MG TAB (Status = Active) TAKE ONE TABLET BY MOUTH ONCE DAILY NEEDED FOR ERECTILE DYSFUNCTION TAKE 1 HOUR PRIOR TO SEXUAL ACTIVITY Rx# [id number] Last Released: 06/02/23 Qty/Days Supply: 07/18 Rx Expiration Date: 05/31/24 Refills Remainin Indication: FOR ERECTILE DYSFUNCTION Non-VA VITAMIN D3 (CHOLECALCIFEROL) TAB TAKE BY MOUTH DAILY SUPPLIES /sunni/ JULIETA MOBLEY MD PRIMARY CARE PHYSICIAN Signed: 09/06/2023 14:38 09/06/2023 ADDENDUM STATUS: COMPLETED Dry skin on bilateral legs using hydrocortisone as needed /joyce MOBLEY MD PRIMARY CARE PHYSICIAN Signed: 09/06/2023 14:39 JULIETA MOBLEY [facility]
--- OUTSIDE RECORDS SUMMARY | 2024-03-09 11:12 | XMS_ITS | Encounter Summary ---
Author Name [facility] [place] Address [address] [place] [address] Care Team Providers Care Sales Coach Name Role Phone MARICRUZ BARBOSA Primary Care [...] (PPO) BASIC SELF Mar 22, 2009 [id number] [phone] KT RODAS PATIENT BCBS [facility] PREFERRED PROVIDER ORGANIZAT ION (PPO) BASIC INDIV IDUAL Mar 22, 2009 111 [id number] KT RODAS PATIENT [employer]ARK FEPRX PLAN PRESCRIPT ION CAREM ARK FEPRX Mar 21, 2010 [id number] KT RODAS PATIENT MEDICARE (WNR) MEDICARE (M) PART B Dec 19, 2012 PART B [id number] KT RODAS PATIENT MEDICARE (WNR) MEDICARE (M) PART B Dec 19, 2012 PART B [id number] KT RODAS PATIENT MEDICARE (WNR) MEDICARE (M) PART B Dec 19, 2012 PART B [id number] [phone] KT RODAS PATIENT MEDICARE (WNR) MEDICARE (M) PART B Dec 19, 2012 PART B [id number] [phone] KT RODAS PATIENT MEDICARE (WNR) MEDICARE (M) PART A Nov 19, 2012 PART A [id number] KT RODAS PATIENT MEDICARE (WNR) MEDICARE (M) PART A Nov 19, 2012 PART A [id number] [phone] KT RODAS PATIENT MEDICARE (WNR) MEDICARE (M) PART A Nov 19, 2012 PART A [id number] [phone] KT RODAS PATIENT MEDICARE (WNR) MEDICARE (M) PART A Nov 19, 2012 PART A [id number] [phone] KT RODAS PATIENT Selected Encounter This section includes the information on record at [place] for the Encounter. Date/Time Encounter Type Encounter Description Reason Pro vider Source Nov 23, 2023 09:29 AM Outpatient Encounter PRIMARY CARE/MEDICINE IHE Encounter Template Text not used by [place] Plan of Treatment: Future Appointments (+ 6 months) and Future Tests (+/- 45 days) The Plan of Treatment section includes future care activities for the patient from all [place] treatmentfacilities. This section includes future appointments and future orders which are active, pending or scheduled. Future Appointments This section includes appointments that were scheduled to occur 6 months from the date of the Encounter, up to a maximum of 20 appointments. The data comes from all [place] treatment facilities. Appointment Date/Time Appointment Type Appointme nt Facility Name Dec 26, 2023 11:00 AM AMBULATORY - NONE [place] [facility] [place] [facility] Jan 19, 2024 03:00 PM AMBULATORY - MEDICINE [place] [facility] [place] [facility] Feb 23, 2024 09:30 AM AMBULATORY - MEDICINE [place] [facility] [place] [facility] Mar 05, 2024 10:00 AM [facility] [place] Social History: Smoking Status (Most current) and Tobacco Use (All prior to encounter date) This section includes the most current, and the historical, smoking and tobacco- related health factors from the [place] facility where the Encounter took place. Current Smoking Status This section includes the most current smoking, or tobacco-related health factor, from the [place] facility where the Encounter took place. Date/Time Current Smoking Status Comment Jarrod quigley Oct 21, 2022 10:25 AM VA-TOBACCO QUIT 5 TO < 15 YRS [facility] Tobacco Use History This section includes a history of the smoking, or tobacco-related health factors, that were collected on or before the date of the Encounter. The data comes from the [place] facility where the Encounter took place. Date/Time Smoking Status/Tobacco Use Comment F acmonse Oct 21, 2022 10:25 AM VA-TOBACCO QUIT 5 TO < 15 YRS [place] [facility] [place] [facility] Oct 01, 2021 09:59 AM VA-TOBACCO DOESNT USE WI 30 MIN WAKEUP [place] [facility] [place] [facility] Oct 01, 2021 09:59 AM VA-TOBACCO USE 30 YEARS OR MORE [place] [facility] [place] [facility] Oct 01, 2021 09:59 AM VA-TOBACCO USE ADVICE [place] [facility] [place] [facility] Oct 01, 2021 09:59 AM VA-TOBACCO USE CREW LEAD NO [place] [facility] [place] [facility] Oct 01, 2021 09:59 AM VA-TOBACCO USE MED NO [place] [facility] [place] [facility] Oct 01, 2021 09:59 AM VA-TOBACCO USER EVERY DAY [place] [facility] [place] [facility] Encounter Notes: All associated encounter notes This section contains the clinical notes associated to the Encounter. Date/Time Encounter Note(s) Provider Source Nov 23, 2023 09:29 AM PRIMARY CARE NOTE: LOCAL TITLE: WALK-IN NOTE PRIMARY CARE (T) STANDARD TITLE: PRIMARY CARE NOTE DATE OF NOTE: NOV 23, 2023@09:29 ENTRY DATE: NOV 23, 2023@09:30:03 AUTHOR: SUNG MARIO COSIGNER: URGENCY: STATUS: COMPLETED <====Click to Start Advanced Medical Support [place] presents to the Primary Care clinic with the following request: [ ]Medication Renewal/Refill [ ]Consultation with Team RN [ X ]Symptoms [ ]Other The states they are: [ X ]Waiting [ ]Not Waiting Yes Walk in visit scheduled with PACT Nurse [ X ] At this encounter the 's demographics were verified. [ X ] At this encounter the [place]'s Insurance information was verified. [ X ] At this encounter the below scheduled visits for the [place] were discussed and appointment reminder card was offered. 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
--- OUTSIDE RECORDS SUMMARY | 2024-03-09 11:12 | XMS_ITS | Encounter Summary ---
Author Name [facility] [place] Address [address] [place] [address] Care Team Providers Care Retail Manager In Training Name Role Phone MARICRUZ BARBOSA Primary Care [...] (PPO) BASIC SELF Mar 22, 2009 [id number] [phone] KT RODAS PATIENT BCBS [facility] PREFERRED PROVIDER ORGANIZAT ION (PPO) BASIC INDIV IDUAL Mar 22, 2009 [id number] KT RODAS PATIENT [employer] FEPRX PLAN PRESCRIPT ION CAREM ARK FEPRX Mar 21, 2010 [id number] KT RODAS PATIENT MEDICARE (WNR) MEDICARE (M) PART B Dec 19, 2012 PART B [id number] KT RODAS PATIENT MEDICARE (WNR) MEDICARE (M) PART B Dec 19, 2012 PART B [id number] [phone] KT RODAS PATIENT MEDICARE (WNR) MEDICARE (M) PART B Dec 19, 2012 PART B [id number] [phone] KT RODAS PATIENT MEDICARE (WNR) MEDICARE (M) PART B Dec 19, 2012 PART B [id number] KT RODAS PATIENT MEDICARE (WNR) MEDICARE (M) PART A Nov 19, 2012 PART A [id number] KT RODAS PATIENT MEDICARE (WNR) MEDICARE (M) PART A Nov 19, 2012 PART A [id number] [phone] KT RODAS PATIENT MEDICARE (WNR) MEDICARE (M) PART A Nov 19, 2012 PART A [id number] KT RODAS PATIENT MEDICARE (WNR) MEDICARE (M) PART A Nov 19, 2012 PART A [id number] KT RODAS PATIENT Selected Encounter This section includes the information on record at [place] for the Encounter. Date/Time Encounter Type Encounter Description Reason Pro vider Source Nov 18, 2023 08:46 AM Outpatient Encounter PRIMARY CARE/MEDICINE IHE Encounter Template Text not used by [place] [...] 2023 09:15 AM [facility] Nov 23, 2023 09:30 AM [facility] Dec 26, 2023 11:00 AM AMBULATORY - NONE [place] [facility] [place] [facility] Jan 19, 2024 03:00 PM AMBULATORY - MEDICINE [place] [facility] [place] [facility] Feb 23, 2024 09:30 AM AMBULATORY - MEDICINE [place] [facility] [place] [facility] Mar 05, 2024 10:00 AM [place]ORY - [place]IC[place] Social History: Smoking Status (Most current) and Tobacco Use (All prior to encounter date) This section includes the most current, and the historical, smoking and tobacco- related health factors from the [place] facility where the Encounter took place. Current Smoking Status This section includes the most current smoking, or tobacco-related health factor, from the [place] facility where the Encounter took place. Date/Time Current Smoking Status Comment Jarrod ity Oct 21, 2022 10:25 AM VA-TOBACCO FORMER USER [place] [facility] Tobacco Use History This section includes a history of the smoking, or tobacco-related health factors, that were collected on or before the date of the Encounter. The data comes from the [place] facility where the Encounter took place. Date/Time Smoking Status/Tobacco Use Comment F acmonse Oct 21, 2022 10:25 AM VA-TOBACCO QUIT 5 TO < 15 YRS [facility] Oct 01, 2021 09:59 AM VA-TOBACCO DOESNT USE WI 30 MIN WAKEUP [facility] Oct 01, 2021 09:59 AM VA-TOBACCO USE 30 YEARS OR MORE [place] [facility] [place] [facility] Oct 01, 2021 09:59 AM VA-TOBACCO USE ADVICE [facility] Oct 01, 2021 09:59 AM VA-TOBACCO USE PARIMUTUEL TICKET CHECKER NO [facility] [place] [facility] Oct 01, 2021 09:59 AM VA-TOBACCO USE MED NO [place] [facility] [place] [facility] Oct 01, 2021 09:59 AM VA-TOBACCO USER EVERY DAY [facility] Encounter Notes: All associated encounter notes This section contains the clinical notes associated to the Encounter. Date/Time Encounter Note(s) Provider Source Nov 18, 2023 08:46 AM PRIMARY CARE NOTE: LOCAL TITLE: WALK-IN NOTE PRIMARY CARE (T) STANDARD TITLE: PRIMARY CARE NOTE DATE OF NOTE: NOV 18, 2023@08:46 ENTRY DATE: NOV 18, 2023@08:47:04 AUTHOR: CHEVY BROWER COSIGNER: URGENCY: STATUS: COMPLETED <====Click to Start Advanced Medical Support presents to the Primary Care clinic with the following request: [ ]Medication Renewal/Refill [ ]Consultation with Team RN [ X ]Symptoms [ ]Other The [place] states they are: [ X ]Waiting [ ]Not Waiting No Walk in visit scheduled with PACT Nurse [ X ] At this encounter the [place]'s demographics were verified. [ X ] At this encounter the 's Insurance information was verified. [ X ] At this encounter the below scheduled visits for the were discussed and appointment reminder card was offered. Future appointments: 12/26/2023 11:00 CWM/NO/CAT SCAN 03/05/2024 10:00 CWM/SO/PACT EIGHT WH Sick call for hospital follow up for cellulitis. /sunni/ CHEVY PRASAD Signed: 11/18/2023 08:47 Receipt Acknowledged By: 11/23/2023 12:00 /sunni/ YOJANA MACIEL RN- REGISTERED NURSE 11/18/2023 10:15 /sunni/ JOSE PAYNE RN PRIMARY CARE RN CHEVY BROWER
--- OUTSIDE RECORDS SUMMARY | 2024-03-09 11:12 | XMS_ITS | Encounter Summary ---
Author Name [facility] [place] [facility] [place] [facility] [place] Address [address] [place] [address] Care Team Providers Care Neurology Specialist Name Role Phone MARICRUZ BARBOSA Primary [...] Name Patient's Relationship to Policy Gudino [facility] PREFERRED PROVIDER ORGANIZAT ION (PPO) BASIC SELF Mar 22, 2009 111 [id number] [phone] KT RODAS PATIENT BCBS [facility] PREFERRED PROVIDER ORGANIZAT ION (PPO) BASIC INDIV IDUAL Mar 22, 2009 111 [id number] KT RODAS PATIENT [employer] FEPRX PLAN PRESCRIPT ION CAREM ARK FEPRX Mar 21, 2010 [id number] KT RODAS PATIENT MEDICARE (WNR) MEDICARE (M) PART B Dec 19, 2012 PART B [id number] KT RODAS PATIENT MEDICARE (WNR) MEDICARE (M) PART B Dec 19, 2012 PART B [id number] [id number] [phone] KT RODAS PATIENT MEDICARE (WNR) MEDICARE (M) PART B Dec 19, 2012 PART B [id number] [phone] KT RODAS PATIENT MEDICARE (WNR) MEDICARE (M) PART B Dec 19, 2012 PART B [id number] KT RODAS PATIENT MEDICARE (WNR) MEDICARE (M) PART A Nov 19, 2012 PART A [id number] KT RODAS PATIENT MEDICARE (WNR) MEDICARE (M) PART A Nov 19, 2012 PART A [id number] KT RODAS PATIENT MEDICARE (WNR) MEDICARE (M) PART A Nov 19, 2012 PART A [id number] KT RODAS PATIENT MEDICARE (WNR) MEDICARE (M) PART A Nov 19, 2012 PART A [id number] KT RODAS PATIENT Selected Encounter This section includes the information on record at [place] for the Encounter. Date/Time Encounter Type Encounter Description Reason Pro vider Source Nov 08, 2023 12:00 AM Outpatient Encounter EVENT (HISTORICAL) [...] 2023 08:45 [facility] Nov 23, [facility]23 09:15 [facility] Nov 23, 2023 09:30 [facility] Dec 26, 2023 11:00 AM AMBULATORY - NONE [place] [facility] [place] [facility] Jan 19, 2024 03:00 PM AMBULATORY - MEDICINE [facility] [place] [facility] Feb 23, 2024 09:30 AM AMBULATORY - MEDICINE [facility] [place] [facility] Mar 05, 2024 10:00 AM AMBULATORY - MEDICINE [facility] Social History: Smoking Status (Most current) and Tobacco Use (All prior to encounter date) This section includes the most current, and the historical, smoking and tobacco- related health factors from the [place] facility where the Encounter took place. Current Smoking Status This section includes the most current smoking, or tobacco-related health factor, from the [place] facility where the Encounter took place. Date/Time Current Smoking Status Comment Facil ity Oct 21, 2022 10:25 AM VA-TOBACCO QUIT 5 TO < 15 YRS [facility] Tobacco Use History This section includes a history of the smoking, or tobacco-related health factors, that were collected on or before the date of the Encounter. The data comes from the [place] facility where the Encounter took place. Date/Time Smoking Status/Tobacco Use Comment F acility Oct 21, 2022 10:25 AM VA-TOBACCO QUIT 5 TO < 15 YRS [place] [facility] [place] [facility] Oct 01, 2021 09:59 AM VA-TOBACCO DOESNT USE WI 30 MIN WAKEUP [place] [facility] [place] [facility] Oct 01, 2021 09:59 AM VA-TOBACCO USE 30 YEARS OR MORE [facility] [place] [facility] Oct 01, 2021 09:59 AM VA-TOBACCO USE ADVICE [facility] [place] [facility] Oct 01, 2021 09:59 AM VA-TOBACCO USE SCALPER OPERATOR NO [facility] [place] [facility] Oct 01, 2021 09:59 AM VA-TOBACCO USE MED NO [facility] [place] [facility] Oct 01, 2021 09:59 AM VA-TOBACCO USER EVERY DAY [facility] Encounter Notes: All associated encounter notes This section contains the clinical notes associated to the Encounter. Date/Time Encounter Note(s) Provider Source Nov 08, 2023 12:00 AM NONVA NOTE: LOCAL TITLE: NON-VA HOSPITALIZATIONS/ER STANDARD TITLE: NONVA NOTE DATE OF NOTE: NOV 08, 2023 ENTRY DATE: DEC 14, 2023@14:41:58 AUTHOR: FABY BENAVIDEZ COSIGNER: URGENCY: STATUS: COMPLETED VistA Imaging - Scanned Document SCANNED DOCUMENT SIGNATURE NOT REQUIRED Electronically Filed: 12/14/2023 by: JANICE BENAVIDEZ Service Secretary JANICE BENAVIDEZ [facility]
--- OUTSIDE RECORDS SUMMARY | 2024-03-09 11:12 | XMS_ITS | Encounter Summary ---
Author Name [facility] [facility] [place] [facility] [place] Address [address] [place] [address] Care Team Providers Care Chief Business Officer Name Role Phone MARICRUZ BARBOSA Primary Care [...] (PPO) BASIC SELF Mar 22, 2009 [id number] [phone] KT RODAS PATIENT BCBS [facility] PREFERRED PROVIDER ORGANIZAT ION (PPO) BASIC INDIV IDUAL Mar 22, 2009 [id number] KT RODAS PATIENT [place] FEPRX PLAN PRESCRIPT ION CAREM ARK FEPRX Mar 21, 2010 [id number] KT RODAS PATIENT MEDICARE (WNR) MEDICARE (M) PART B Dec 19, 2012 PART B [id number] KT RODAS PATIENT MEDICARE (WNR) MEDICARE (M) PART B Dec 19, 2012 PART B [id number] TK RODAS PATIENT MEDICARE (WNR) MEDICARE (M) PART B Dec 19, 2012 PART B [id number] [phone] KT RODAS PATIENT MEDICARE (WNR) MEDICARE (M) PART B Dec 19, 2012 PART B [id number] KT RODAS PATIENT MEDICARE (WNR) MEDICARE (M) PART A Nov 19, 2012 PART A [id number] [phone] KT RODAS PATIENT MEDICARE (WNR) MEDICARE (M) PART A Nov 19, 2012 PART A [id number] KT RODAS PATIENT MEDICARE (WNR) MEDICARE (M) PART A Nov 19, 2012 PART A [id number] KT RODAS PATIENT MEDICARE (WNR) MEDICARE (M) PART A Nov 19, 2012 PART A [id number] KT RODAS PATIENT Selected Encounter This section includes the information on record at [place] for the Encounter. Date/Time Encounter Type Encounter Description Reason Pro vider Source Nov 29, 2023 09:25 AM Outpatient Encounter PRIMARY CARE/MEDICINE IHE Encounter Template Text not used by [place] Plan of Treatment: Future Appointments (+ 6 months) and Future Tests (+/- 45 days) The Plan of Treatment section includes future care activities for the patient from all [place] treatmentfacilities. This section includes future appointments and future orders which are active, pending or scheduled. Future Appointments This section includes appointments that were scheduled to occur 6 months from the date of the Encounter, up to a maximum of 20 appointments. The data comes from all [place] treatment facilities. Appointment Date/Time Appointment Type Appointme nt Facility Name Dec 26, 2023 11:00 AM AMBULATORY - NONE [place] [facility] [place] [facility] Jan 19, 2024 03:00 PM AMBULATORY - MEDICINE [place] [facility] [place] [facility] Feb 23, 2024 09:30 AM AMBULATORY - MEDICINE [place] [facility] [place] [facility] Mar 05, 2024 10:00 [facility] Social History: Smoking Status (Most current) and Tobacco Use (All prior to encounter date) This section includes the most current, and the historical, smoking and tobacco- related health factors from the [place] facility where the Encounter took place. Current Smoking Status This section includes the most current smoking, or tobacco-related health factor, from the [place] facility where the Encounter took place. Date/Time Current Smoking Status Comment Jarrod ity Oct 21, 2022 10:25 AM VA-TOBACCO FOR[facility] USER [place] [facility] Tobacco Use History This section includes a history of the smoking, or tobacco-related health factors, that were collected on or before the date of the Encounter. The data comes from the [place] facility where the Encounter took place. Date/Time Smoking Status/Tobacco Use Comment F acility Oct 21, 2022 10:25 AM VA-TOBACCO QUIT 5 TO < 15 YRS [place] [facility] [place] [facility] Oct 01, 2021 09:59 AM VA-TOBACCO DOESNT USE WI 30 MIN WAKEUP [place] [facility] [place] [facility] Oct 01, 2021 09:59 AM VA-TOBACCO USE 30 YEARS OR MORE [place] [facility] [place] [facility] Oct 01, 2021 09:59 AM VA-TOBACCO USE ADVICE [place] [facility] [place] [facility] Oct 01, 2021 09:59 AM VA-TOBACCO USE INSPECTOR RAG SORTING NO [facility] [place] [facility] Oct 01, 2021 09:59 AM VA-TOBACCO USE MED NO [place] [facility] [place] [facility] Oct 01, 2021 09:59 AM VA-TOBACCO USER EVERY DAY [place] [facility] [place] [facility] Radiology Reports: +/- 30 days of the encounter Radiology Reports For cases when an order for radiology services may have been completed prior to the date of the Encounter, the report list includes the Radiology Reports that were completed up to 30 days before dateof the Encounter. For cases when an order for radiology services may have been completed after the date of the Encounter, the report list also includes the Radiology Reports that were completed up to30 days after date of the Encounter. The data comes from all [place] treatment facilities. Date/Time Radiology Report Provider Source Dec 26, 2023 10:55 AM LDCT LUNG CANCER SCREENING: LARRY RODAS [id number] M Exm Date: DEC 26, 2023@10:55 Req Phys: TRAE,QUETA Em Loc: ZZCWM/NO/LCS ADMIN (Req'g Loc) Img Loc: NHM/CT Service: Unknown [place] [facility] [place] [id number] (Case [id number] COMPLETE) LDCT LUNG CANCER SCREENING (CT Detailed) CPT:19135 Reason for Study: Lung Cancer Screening Clinical History: 56 TPY Currently smoking Comparison: CT scan of the chest from 12/23/2022, December 23, 2021, December 22, 2020, December 17, 2019, December 13, 2018 and November 07, 2017. Report Status: Verified Date Reported: DEC 26, 2023 Date Verified: DEC 26, 2023 Telecommunicator E-Sig:/ES/KATH PURDY JR Report: Study: Lung cancer screening CT of the chest. Provided History: Lung cancer screening. Comparison: CT scan the chest from December 23, 2022, December 23, 2021, December 22, 2020, December 09, 2019, December 13, 2018 and November 07, 2017. Technique: 1 mm lung algorithm and 3 mm soft tissue algorithm axial reconstructions from the lung apices through the lung bases without the administration of intravenous contrast as per standard department protocol for lung cancer screening. Subsequently, sagittal and coronal reformats were generated. MIP images also provided and reviewed. Secondary computer-aided detection with post-processing from locr is used. The lack of intravenous contrast inherently limits the evaluation of hilar structures, vascular structures, and abnormal enhancement patterns. Lower than standard dose was utilized limiting sensitivity for fine parenchymal detail. Dose Parameters: CTDI(vol): 1.7 mGy. DLP: 67.9 mGy*cm. Findings: Lungs: Emphysema: Mild centrilobular and paraseptal emphysematous changes with associated scattered parenchymal scarring is unchanged. Index Nodule: New 3.2 mm solid, irregular left upper lobe pulmonary nodule, 8-121. Other Nodules: Stable 6.4 mm solid, ovoid, slightly irregularly marginated right lower lobe pulmonary nodule, 8-247. Stable 3.1 mm solid, ovoid, well-circumscribed left upper lobe pulmonary nodule, 8-112. Lungs/airway findings: No acute pulmonary process or pleural effusion is identified. There are mild dependent changes present at the lung bases. The tracheobronchial tree is patent and normal. Heart, mediastinum and lymph nodes: The heart size is normal. No pericardial effusion identified. Normal caliber thoracic aorta. No mediastinal or hilar lymphadenopathy by size criteria. No axillary lymphadenopathy by size criteria. Normal caliber pulmonary arteries. Visualized coronary artery and aortic calcifications: Atherosclerotic changes of the aorta and coronary arteries. Upper abdomen: Calcified splenic granuloma and right renal simple and separate parapelvic cyst again seen. Stable focal soft tissue nodule with punctate marginal calcification posterior to the right lobe of the liver. Bones and soft tissues: T8 and T12 mild vertebral compression deformities again seen. Normal age-related degenerative changes present. No acute bony abnormality identified. Other findings: None. Impression: No acute pulmonary process identified. Lung-RADS Assessment: Category 2, benign appearance or behavior. Recommendation: Continue annual screening with lung cancer screening CT in 12 months. Other Significant Findings and Recommendations: None. Primary Diagnostic Code: No immediate attention required Secondary Diagnostic Codes: LUNGRADS 2: BENIGN APPEARANCE OR BEHAVIOR Primary Interpreting Staff: KATH PURDY JR, Radiologist (Telecommunicator) /KATH GASPAR JR [facility] Encounter Notes: All associated encounter notes This section contains the clinical notes associated to the Encounter. Date/Time Encounter Note(s) Provider Source Nov 29, 2023 09:25 AM NONVA NOTE: LOCAL TITLE: NON-VA HOSPITALIZATIONS/ER STANDARD TITLE: NONVA NOTE DATE OF NOTE: NOV 29, 2023@09:25 ENTRY DATE: NOV 29, 2023@09:25:48 AUTHOR: BEATRIZ SANDOVAL COSIGNER: URGENCY: STATUS: COMPLETED NON [place] DISCHARGE SUMMARY This data contains relevant information copied & pasted from a NON [place] source. Efforts are made to ensure congruency between this note & the original. This note not DOES NOT contain the entirety of the original. Please see [facility] to view the original note/document. Place of Service: [facility] Admission Date: Oct Discharge Date: Oct Discharged to: Home CC: ABSCESS OR BOIL DIAGNOSIS: ABDOMINAL WALL CELLULITIS Upcoming Appointments: 04/20/2024 10:00 NHM/OPTOMETRY/BORASKI SENT TO SCANNING This note is entered for the sole purpose of scanning Non-VA documentation into [facility]. /sunni/ YOJANA MACIEL RN-BC REGISTERED NURSE Signed: 11/29/2023 09:26 BEATRIZ SANDOVAL
--- OUTSIDE RECORDS SUMMARY | 2024-03-09 11:12 | XMS_ITS ---
Author Name [facility] [place] [facility] [place] Address [address] [place] [address] Care Team Providers Care Corporate Officer Name Role Phone MARICRUZ BARBOSA Primary [...] (PPO) BASIC SELF Mar 22, 2009 [id number] [phone] KT RODAS PATIENT BCBS [facility] PREFERRED PROVIDER ORGANIZAT ION (PPO) BASIC INDIV IDUAL Mar 22, 2009 [id number] KT RODAS PATIENT [employer] FEPRX PLAN PRESCRIPT ION CAREM ARK FEPRX Mar 21, 2010 [id number] KT RODAS PATIENT MEDICARE (WNR) MEDICARE (M) PART B Dec 19, 2012 PART B [id number] KT RODAS PATIENT MEDICARE (WNR) MEDICARE (M) PART B Dec 19, 2012 PART B [id number] KT RODAS PATIENT MEDICARE (WNR) MEDICARE (M) PART B Dec 19, 2012 PART B [id number] [phone] KT RODAS PATIENT MEDICARE (WNR) MEDICARE (M) PART B Dec 19, 2012 PART B [id number] KT RODAS PATIENT MEDICARE (WNR) MEDICARE (M) PART A Nov 19, 2012 PART A [id number] [phone] KT RODAS PATIENT MEDICARE (WNR) MEDICARE (M) PART A Nov 19, 2012 PART A [id number] KT RODAS PATIENT MEDICARE (WNR) MEDICARE (M) PART A Nov 19, 2012 PART A [id number] [phone] KT RODAS PATIENT MEDICARE (WNR) MEDICARE (M) PART A Nov 19, 2012 PART A [id number] KT RODAS PATIENT Selected Encounter This section includes the information on record at [place] for the Encounter. Date/Time Encounter Type Encounter Description Reason Pro vider Source Nov 08, 2023 11:25 AM Outpatient Encounter PRIMARY CARE/MEDICINE IHE Encounter [...] 2023 08:45 AM [facility] Nov 23, 2023 09:15 AM [facility] Nov 23, 2023 09:30 AM [facility] Dec 26, 2023 11:00 AM AMBULATORY - NONE [place] [facility] [place] [facility] Jan 19, 2024 03:00 PM AMBULATORY - MEDICINE [place] [facility] [place] [facility] Feb 23, 2024 09:30 AM AMBULATORY - MEDICINE [place] [facility] [place] [facility] Mar 05, 2024 10:00 AM AMBULATORY - MEDICINE [facility] Social History: Smoking [...] 21, 2022 10:25 AM [facility] Tobacco Use History This section includes a history of the smoking, or tobacco-related health factors, that were collected on or before the date of the Encounter. The data comes from the [place] facility where the Encounter took place. 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 Date/Time Encounter Note(s) Provider Source Nov 17, 2023 01:44 PM ADDENDUM: LOCAL TITLE: Addendum STANDARD TITLE: ADDENDUM DATE OF NOTE: NOV 17, 2023@13:44:23 ENTRY DATE: NOV 17, 2023@13:44:25 AUTHOR: BEATRIZ SANDOVAL COSIGNER: URGENCY: STATUS: COMPLETED Called and he reports that doxycycline medication dose has two dose left. He reports that his cellulitis has improved but there is slight drainage throughout the day and he is unsure if he should be on a longer course of antibiotics. reports that he is keeping a dcd to collect drainage that he is changing daily. would like to come to sick call tomorrow to have the area checked out. author advised that sick call clinic does not have a provider assigned to sick call tomorrow but that he is welcome to stop by clinic for sick call RN to see abdomen and advise. author notes that ED record from 11/08/23 is available for review in pact rightfax folder. /es/ YOJANA MACIEL RN-BC REGISTERED NURSE Signed: 11/17/2023 13:52 Receipt Acknowledged By: 11/18/2023 10:07 /es/ JOSE PAYNE RN PRIMARY CARE RN ==== --- Original Document --- 11/08/23 WALK-IN NOTE PRIMARY CARE (T): <====Click to Start Nurse Data: 77year old MALE [facility] reports to Primary Care clinic for Walk-In visit. 's PCP is JULIETA MOBLEY, last visit with PCP was , next visit scheduled for . Today Vet walks in to clinic with complaint of infection on his abdomen. Last recorded Vital Signs are: Temperature:97.9 F [36.6 C] (02/01/2023 10:05) Pulse:83 (09/06/2023 14:02) Blood Pressure:131/73 (09/06/2023 14:02) Respiration:20 (02/01/2023 10:05) Pain:0 (08/19/2022 10:18) Vet reports current allergies are:Remote Allergy Data No Remote Allergy/ADR Data available for this patient Current Medications from Active Med list include: Active Outpatient Medications (including Supplies): Active Outpatient Medications Status 1) AMLODIPINE BESYLATE 10MG TAB TAKE ONE [...] TO SEXUAL ACTIVITY Active Non-VA Medications Status 1) Non-VA VITAMIN D3 (CHOLECALCIFEROL) TAB BY MOUTH ACTIVE DAILY 7 Total Medications Action: Author spoke with [facility] who reports that he noticed an abcess, similar to one he had in the past on his right hand that was treated by [facility] sick call provider. reports that he had squeezed the abcess, which produced some drainage, at the time. reports that he then noticed that it scabbed over but then the skin around the area started to become red and painful over the next three days. reports that he started using ciprofloxacin that he had on hand for recurrent bladder infections to be used when he has symptoms of kidney infection. Author observed area on right abdomen and notes erythema and pain around scabbed area on right abdomen proximal to his ostomy pouch. erythema is warm to touch. [facility] denies any sign or symptoms of infection. inquired if he should go to [facility] ED for further evaluation and treatment. Reminders Advance Directive Screen MH AD Oct 21 Toxic Exposure Screening Oct 21 Homelessness/Food Insecurity Screen Oct 21 Tobacco Use Screening Oct 21 Medication Reconciliation DUE NOW Sexual Orientation Oct 21 Eye Care At-Risk Eval (Provider) DUE NOW Hepatitis A Vaccine for High Risk DUE NOW (Optional) Whole Health Documentation DUE NOW Response: Author encouraged to present to [facility] ED, [facility]'s preference, for further assessment of infection and treatment. Author advised [facility] that the infection may be resistant to the ciprofloxacin antibiotic medication that he has been taking and that may be why he is not seeing an improvement of the symptoms. [facility] is agreeable to go to [facility] ED for further evaluation and treatment. Author set self alert to follow up with [facility] later this week about outcome of ED visit. Author also provided [facility] with the [place] ED notification line to contact after he goes to the ED. /sunni/ YOJANA MACIEL RN-BC REGISTERED NURSE Signed: 11/08/2023 11:42 BEATRIZ SANDOVAL [facility] Nov 08, 2023 11:25 AM PRIMARY CARE NOTE: LOCAL TITLE: WALK-IN NOTE PRIMARY CARE (T) STANDARD TITLE: PRIMARY CARE NOTE DATE OF NOTE: NOV 08, 2023@11:25 ENTRY DATE: NOV 08, 2023@11:25:42 AUTHOR: BEATRIZ SANDOVAL EXP COSIGNER: URGENCY: STATUS: COMPLETED WALK-IN NOTE PRIMARY CARE (T) Has ADDENDA <====Click to Start Nurse Data: 77year old MALE [facility] reports to Primary Care clinic for Walk-In visit. 's PCP is JULIETA MOBLEY, last visit with PCP was , next visit scheduled for . Today Vet walks in to clinic with complaint of infection on his abdomen. Last recorded Vital Signs are: Temperature:97.9 F [36.6 C] (02/01/2023 10:05) Pulse:83 (09/06/2023 14:02) Blood Pressure:131/73 (09/06/2023 14:02) Respiration:20 (02/01/2023 10:05) Pain:0 (08/19/2022 10:18) Vet reports current allergies are:Remote Allergy Data No Remote Allergy/ADR Data available for this patient Current Medications from Active Med list include: Active Outpatient Medications (including Supplies): Active Outpatient Medications Status 1) AMLODIPINE BESYLATE 10MG TAB TAKE ONE [...] TO SEXUAL ACTIVITY Active Non-VA Medications Status 1) Non-VA VITAMIN D3 (CHOLECALCIFEROL) TAB BY MOUTH ACTIVE DAILY 7 Total Medications Action: Author spoke with who reports that he noticed an abcess, similar to one he had in the past on his right hand that was treated by [facility] sick call provider. [facility] reports that he had squeezed the abcess, which produced some drainage, at the time. reports that he then noticed that it scabbed over but then the skin around the area started to become red and painful over the next three days. [facility] reports that he started using ciprofloxacin that he had on hand for recurrent bladder infections to be used when he has symptoms of kidney infection. Author observed area on right abdomen and notes erythema and pain around scabbed area on right abdomen proximal to his ostomy pouch. erythema is warm to touch. denies any sign or symptoms of infection. [facility] inquired if he should go to [facility] ED for further evaluation and treatment. Reminders Advance Directive Screen MH AD Oct 21 Toxic Exposure Screening Oct 21 Homelessness/Food Insecurity Screen Oct 21 Tobacco Use Screening Oct 21 Medication Reconciliation DUE NOW Sexual Orientation Oct 21 Eye Care At-Risk Eval (Provider) DUE NOW Hepatitis A Vaccine for High Risk DUE NOW (Optional) Whole Health Documentation DUE NOW Response: Author encouraged to present to [facility] ED, [facility] preference, for further assessment of infection and treatment. Author advised that the infection may be resistant to the ciprofloxacin antibiotic medication that he has been taking and that may be why he is not seeing an improvement of the symptoms. [facility] is agreeable to go to [facility] ED for further evaluation and treatment. Author set self alert to follow up with later this week about outcome of ED visit. Author also provided [facility] with the [place] ED notification line to contact after he goes to the ED. /sunni/ YOJANA MACIEL RN-BC REGISTERED NURSE Signed: 11/08/2023 11:42 11/17/2023 ADDENDUM STATUS: COMPLETED Called [facility] and he reports that doxycycline medication dose has two dose left. He reports that his cellulitis has improved but there is slight drainage throughout the day and he is unsure if he should be on a longer course of antibiotics. [facility] reports that he is keeping a dcd to collect drainage that he is changing daily. would like to come to sick call tomorrow to have the area checked out. author advised that sick call clinic does not have a provider assigned to sick call tomorrow but that he is welcome to stop by clinic for sick call RN to see abdomen and advise. author notes that ED record from 11/08/23 is available for review in pact [facility]fax folder. /sunni/ YOJANA MACIEL RN-BC REGISTERED NURSE Signed: 11/17/2023 13:52 Receipt Acknowledged By: * AWAITING SIGNATURE * JOSE PAYNE [place]IN [place]
--- OUTSIDE RECORDS SUMMARY | 2024-03-09 11:12 | XMS_ITS | Encounter Summary ---
Author Name [facility] [place] Address [address] [place] [address] Care Team Providers Care Clinic Supervisor Name Role Phone MARICRUZ BARBOSA Primary Care [...] (PPO) BASIC SELF Mar 22, 2009 [id number] [phone] KT RODAS PATIENT BCBS [facility] PREFERRED PROVIDER ORGANIZAT ION (PPO) BASIC INDIV IDUAL Mar 22, 2009 111 [id number] KT RODAS PATIENT CAREMARK FEPRX PLAN PRESCRIPT ION CAREM ARK FEPRX Mar 21, 2010 [id number] KT RODAS PATIENT MEDICARE (WNR) MEDICARE (M) PART B Dec 19, 2012 PART B [id number] KT RODAS PATIENT MEDICARE (WNR) MEDICARE (M) PART B Dec 19, 2012 PART B [id number] [phone] KT RODAS PATIENT MEDICARE (WNR) MEDICARE (M) PART B Dec 19, 2012 PART B [id number] KT RODAS PATIENT MEDICARE (WNR) MEDICARE (M) PART B Dec 19, 2012 PART B [id number] [phone] KT RODAS PATIENT MEDICARE (WNR) MEDICARE (M) PART A Nov 19, 2012 PART A [id number] KT RODAS PATIENT MEDICARE (WNR) MEDICARE (M) PART A Nov 19, 2012 PART A [id number] KT RODAS PATIENT MEDICARE (WNR) MEDICARE (M) PART A Nov 19, 2012 PART A [id number] [phone] KT RODAS PATIENT MEDICARE (WNR) MEDICARE (M) PART A Nov 19, 2012 PART A [id number] KT RODAS PATIENT Selected Encounter This section includes the information on record at [place] for the Encounter. Date/Time Encounter Type Encounter Description Reason Pro vider Source Dec 23, 2023 10:22 AM Outpatient Encounter COMMUNITY CARE CONSULT IHE Encounter [...] AMBULATORY - NONE [place] [facility] [place] [facility] Jan 19, 2024 03:00 PM AMBULATORY - MEDICINE [place] [facility] [place] [facility] Feb 23, 2024 09:30 AM AMBULATORY - MEDICINE [place] [facility] [place] [facility] Mar 05, 2024 10:00 AM AMBULATORY - MEDICINE [place] Active, Pending, and Scheduled Orders This section includes a listing of several types of active, pending, and scheduled orders, including clinic medications orders, diagnostic test orders, procedure orders and consult orders; where the start date of the order is 45 days before the date of the Encounter or 45 days after the date of theEncounter. The data comes from all [place] treatment facilities. Test Date/Time Test Type Test Details Facility Name Jan 25, 2024 08:56 AM Consult Order COMMUNITY CARE-DENTAL SPECIALTY Cons Storeroom Supervisor's Choice [facility] Social History: Smoking Status (Most current) and [...] 10:25 AM VA-TOBACCO [facility] Tobacco Use History This section includes a history of the smoking, or tobacco-related health factors, that were collected on or before the date of the Encounter. The data comes from the [place] facility where the Encounter took place. 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 The data comes from all [place] treatment facilities. Date/Time Radiology Report Provider Source Dec 26, 2023 10:55 AM LDCT LUNG CANCER SCREENING: LARRY RODAS [id number] -[id number] M Exm Date: DEC 26, 2023@10:55 Req Phys: QUETA LARKIN Loc: ZZCWM/NO/LCS ADMIN (Req'g Loc) Img Loc: NHM/CT Service: [place] [address] (Case 87 COMPLETE) LDCT LUNG CANCER SCREENING (CT Detailed) CPT:71009 Reason for Study: Lung Cancer Screening Clinical History: 56 TPY Currently smoking Comparison: CT scan of the chest from 12/23/2022, December 23, 2021, December 22, 2020, December 17, 2019, December 13, 2018 and November 07, 2017. Report Status: Verified Date Reported: DEC 26, 2023 Date Verified: DEC 26, 2023 Motor Teacher E-Sig:/ES/KATH PURDY JR Report: Study: Lung cancer [...] reviewed. Secondary computer-aided detection with post-processing from [employer] is used. The lack of intravenous contrast [...] Primary Interpreting Staff: KATH PURDY JR, Radiologist (Motor Teacher) /KATH GASPAR JR [facility] Encounter Notes: All associated encounter notes This section contains the clinical notes associated to the Encounter. Date/Time Encounter Note(s) Provider Source Dec 23, 2023 10:22 AM DENTISTRY ADMINISTRATIVE NOTE: LOCAL TITLE: DENTAL ADMINISTRATIVE NOTE STANDARD TITLE: DENTISTRY ADMINISTRATIVE NOTE DATE OF NOTE: DEC 23, 2023@10:22 ENTRY DATE: DEC 23, 2023@10:22:29 AUTHOR: TALI MALDONADO [place] EXP COSIGNER: URGENCY: STATUS: COMPLETED patient submitted via secure messageing a referral from an office not contracted with the [place]. I replyed to message stating the office needed to submit xrays via usps or he could handle deliver them /sunni/ TALI MALDONADO DENTAL RELINER Signed: 12/23/2023 10:27 TALI MALDONADO [facility]
--- OUTSIDE RECORDS SUMMARY | 2024-03-09 11:12 | XMS_ITS | Encounter Summary ---
Author Name [facility] [place] Organization [place] Address [address] [place] [address] Care Team Providers Care Accounts Payable Accountant Name Role Phone MARICRUZ BARBOSA Primary Care [...] Name Patient's Relationship to Policy Gudino [facility] PREFERRED PROVIDER ORGANIZAT ION (PPO) BASIC SELF Mar 22, 2009 [id number] KT RODAS PATIENT BCBS [place] FEP PREFERRED PROVIDER ORGANIZAT ION (PPO) BASIC INDIV IDUAL Mar 22, 2009 111 [id number] KT RODAS PATIENT CAREMARK FEPRX PLAN PRESCRIPT ION CAREM ARK FEPRX Mar 21, 2010 [id number] KT RODAS PATIENT MEDICARE (WNR) MEDICARE (M) PART B Dec 19, 2012 PART B [id number] KT RODAS PATIENT MEDICARE (WNR) MEDICARE (M) PART B Dec 19, 2012 PART B [id number] KT RODAS PATIENT MEDICARE (WNR) MEDICARE (M) PART B Dec 19, 2012 PART B [id number] KT RODAS PATIENT MEDICARE (WNR) MEDICARE (M) PART B Dec 19, 2012 PART B [id number] KT RODAS PATIENT MEDICARE (WNR) MEDICARE (M) PART A Nov 19, 2012 PART A [id number] KT RODAS PATIENT MEDICARE (WNR) MEDICARE (M) PART A Nov 19, 2012 PART A [id number] KT RODAS PATIENT MEDICARE (WNR) MEDICARE (M) PART A Nov 19, 2012 PART A [id number] KT RODAS PATIENT MEDICARE (WNR) MEDICARE (M) PART A Nov 19, 2012 PART A [id number] KT RODAS PATIENT Selected Encounter This section includes the information on record at [place] for the Encounter. Date/Time Encounter Type Encounter Description Reason Provider Source Nov 23, 2023 09:30 AM OFFICE O/P EST LOW 20 MIN PRIMARY CARE/MEDICINE ICD-10-CM L03.311 Cellulitis of abdominal wall MARICRUZ BARBOSA [facility] Encounter Template Text not used by [place] Assessments - Encounter Diagnoses This section includes the primary and secondary diagnoses documented for the Encounter. Date/Time Primary/Secondary Diagnosis Diagnosis Name Provider Source Dec 10, 2023 08:54 AM PRIMARY Cellulitis of abdominal wall MARICRUZ BARBOSA [facility] Plan of Treatment: Future Appointments (+ 6 months) and Future Tests (+/- 45 days) The Plan of Treatment section includes future care activities for the patient from all [place] treatmentfacilities. This section includes future appointments and future orders which are active, pending or scheduled. Future Appointments This section includes appointments that were scheduled to occur 6 months from the date of the Encounter, up to a maximum of 20 appointments. The data comes from all [place] treatment facilities. Appointment Date/Time Appointment Type Appointme nt Facility Name Dec 26, 2023 11:00 AM AMBULATORY - NONE [place] [facility] Jan 19, 2024 03:00 PM AMBULATORY - MEDICINE [place] C [facility] Feb 23, 2024 09:30 AM [facility] Mar 05, 2024 10:00 AM [...] AM 97.9 81 130/76 18 97 0 [facility] Social History: Smoking Status (Most current) and Tobacco Use (All prior to encounter date) This section includes the most current, and the historical, smoking and tobacco- related health factors from the [place] facility where the Encounter took place. Current Smoking Status This section includes the most current smoking, or tobacco-related health factor, from the [place] facility where the Encounter took place. Date/Time Current Smoking Status Comment Facil [facility] Sep 29, 2020 10:30 AM VA-TOBACCO USER EVERY DAY [place] Tobacco Use History This section includes a history of the smoking, or tobacco-related health factors, that were collected on or before the date of the Encounter. The data comes from the [place] facility where the Encounter took place. 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 [facility] Sep 29, 2020 10:30 AM VA-TOBACCO USE MED [facility] Sep 29, 2020 10:30 AM VA-TOBACCO USER EVERY DAY [place] Feb 20, 2019 11:59 AM VA-TOBACCO DOESNT USE WI 30 MIN WAKEUP [place] Feb 20, 2019 11:59 AM VA-TOBACCO USE 30 YEARS OR MORE [place] Feb 20, 2019 11:59 AM VA-TOBACCO USE ADVICE [place] Feb 20, 2019 11:59 AM VA-TOBACCO USE FIELD ADVISOR [facility] Feb 20, 2019 11:59 AM VA-TOBACCO USE MED [facility] Feb 20, 2019 11:59 AM VA-TOBACCO USER EVERY DAY [place] Feb 13, 2018 09:33 AM VA-TOBACCO DOESNT USE WI 30 MIN WAKEUP [place] Feb 13, 2018 09:33 AM VA-TOBACCO USE 30 YEARS OR MORE [place] Feb 13, 2018 09:33 AM VA-TOBACCO USE ADVICE [place] Feb 13, 2018 09:33 AM VA-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 [facility] Dec 11, 2014 10:52 AM QUIT TOBACCO USE 1 -7 YEARS AGO [place] Jan 24, 2013 09:31 AM V1-PT DECLINES REF TO TOBACCO CESS PRGM [facility] Jan 24, 2013 09:31 AM V1-PT DECLINES TOB ACCO CESSATION MEDS [facility] Jan 24, 2013 09:31 AM V1-PT NOT INTEREST ED IN QUIT TOBACCO USE [facility] Oct 24, 2012 12:49 PM CURRENT SMOKER one in a half to two packs per day [facility] Encounter Notes: All associated encounter notes This section contains the clinical notes associated to the Encounter. Date/Time Encounter Note(s) Provider Source Nov 23, 2023 09:32 AM NURSE PRACTITIONER NOTE: LOCAL TITLE: NURSE PRACTIONER/SICK VISIT STANDARD TITLE: NURSE PRACTITIONER NOTE DATE OF NOTE: NOV 23, 2023@09:32 ENTRY DATE: NOV 23, 2023@09:32:49 AUTHOR: MARICRUZ BARBOSA COSIGNER: URGENCY: STATUS: COMPLETED SICK CALL VISIT LARRY RODAS is a 77 y/o WHITE MALE who presents to [facility] sick call with c/o f/u cellulitis to mid abdomen. Completed 10 day course of Doxy, states site is smaller and less tender but not resolved. No longer draining either. Previous CT at Urgent Care showed no abscess. Is going to [place] in a few days and will be gone for almost two weeks. [place] PCP: ======= JULIETA MOBLEY VITAL SIGNS: Blood Pressure: 130/76 (11/23/2023 09:33) Pain: 0 (11/23/2023 09:33) Patient Height: 66 in [167.6 cm] (02/23/2019 11:35) Patient Weight: 158 lb [71.67 kg] (09/06/2023 14:02) Pulse: 81 (11/23/2023 09:33) Respiration: 18 (11/23/2023 09:33) Temperature: 97.9 F [36.6 C] (11/23/2023 09:33) REVIEW OF SYSTEMS: see HPI PHYSICAL EXAMINATION: General: Well-appearing [place] in no obvious distress. Mental Status: Alert and oriented x4. Lungs: respirations easy and unlabored GI: Abdomen is soft and nontender. Integument: Area of erythema and induration noted mid abdomen, measures 2x4.5cm. Has central elevated area that measures 1.5cm/round. No drainage from site. Minimal warmth. Nontender to touch. Psych: Normal mood and affect. Normal judgment. Cooperative with exam, follows commands. ASSESSMENT/PLAN: Cellulitis abdomen - improved on Doxy but not yet resolved. Area of induration and elevated area marked with sharpie to monitor. Start Keflex x another 10 days, probiotic also ordered. Instructed to monitor site if if no improvement or if site enlarges, becomes painful or there is noted purulent drainage, instructed [facility] [place] [facility]. MEDICATIONS reviewed with [place] FOLLOW UP: Return to clinic 3-5 days if no improvement in symptoms. UPCOMING APPOINTMENTS: No data available /sunni/ JOHAN CARRION CERTIFIED NURSE PRACTITIONER Signed: 11/23/2023 09:54 MARICRUZ BARBOSAFIELD
--- OUTSIDE RECORDS SUMMARY | 2024-03-09 11:12 | XMS_ITS | Encounter Summary ---
Author Name [facility] [place] Address [address] [place] [address] Care Team Providers Care Rn Intern Name Role Phone MARICRUZ BARBOSA Primary Care [...] (PPO) BASIC SELF Mar 22, 2009 [id number] [phone] KT RODAS PATIENT BCBS [place] FEP PREFERRED PROVIDER ORGANIZAT ION (PPO) BASIC INDIV IDUAL Mar 22, 2009 111 [id number] KT RODAS PATIENT CAR[employer]ARK FEPRX PLAN PRESCRIPT ION CAREM ARK FEPRX Mar 21, 2010 [id number] KT RODAS PATIENT MEDICARE (WNR) MEDICARE (M) PART B Dec 19, 2012 PART B [id number] KT RODAS PATIENT MEDICARE (WNR) MEDICARE (M) PART B Dec 19, 2012 PART B [id number] KT RODAS PATIENT MEDICARE (WNR) MEDICARE (M) PART B Dec 19, 2012 PART B [id number] KT RODAS PATIENT MEDICARE (WNR) MEDICARE (M) PART B Dec 19, 2012 PART B [id number] KT RODAS PATIENT MEDICARE (WNR) MEDICARE (M) PART A Nov 19, 2012 PART A [id number] KT RODAS PATIENT MEDICARE (WNR) MEDICARE (M) PART A Nov 19, 2012 PART A [id number] [phone] KT RODAS PATIENT MEDICARE (WNR) MEDICARE (M) PART A Nov 19, 2012 PART A [id number] KT RODAS PATIENT MEDICARE (WNR) MEDICARE (M) PART A Nov 19, 2012 PART A [id number] KT RODAS PATIENT Selected Encounter This section includes the information on record at [place] for the Encounter. Date/Time Encounter Type Encounter Description Reason Pro vider Source Aug 31, 2023 11:25 AM Outpatient Encounter ADMIN PAT ACTIVTIES (MASNONCT) IHE [...] 2023 02:00 PM AM[facility]ORY [facility]IC[facility] Nov 18, 2023 08:45 AM [facility]IC[facility] Nov 23, 2023 09:15 AM [facility] Nov 23, 2023 09:30 AM [facility] Dec 26, 2023 11:00 AM AMBULATORY - NONE [place] [facility] [place] [facility] Jan 19, 2024 03:00 PM AMBULATORY - MEDICINE [facility] Feb 23, 2024 09:30 AM AMBULATORY - MEDICINE [facility] Lab Results: +/- 30 days of the encounter This section includes the Chemistry and Hematology Lab Results on record with [place] for the patient. Radiology Reports and Pathology Reports are provided separately, in subsequent sections. Lab Results This section contains the Chemistry/Hematology Results that were resulted 30 days before or 30 daysafter the date of the Encounter. Date/Time Source Result Type Result - Unit Interpretation Reference Range Comment Sep 12, 2023 08:42 AM [place] BASIC METABOLIC PANEL (fasting) Specime n Type: SERUM No comment entered. Ordering Provider: JULIETA MOBLEY Report Released Date/Time: Sep 06, 2023 02:39 PM Reporting Lab: [address] [address] Performing Lab: [address] [address] UREA NITROGEN 10 mg/dL 7-25 GLUCOSE 108 mg/dL H 65-100 SODIUM 137 mmol/L 135-145 POTASSIUM 4.2 mmol/L 3.5-5.0 CHLORIDE 104 mmol/L 100-110 CO2 22 meq/L 20-30 CREATININE, Serum 0.98 mg/dL 0.50-1.40 eGFR(CKD-EPI 2020) 80 mL/min >60 Sep 12, 2023 08:42 AM [place] LIPID PANEL FASTING Specimen Type: SERUM No comment entered. Ordering Provider: JULIETA MOBLEY Report Released Date/Time: Sep 06, 2023 02:39 PM Reporting Lab: [address] [address] Performing Lab: [address] [address] CHOLESTEROL 158 mg/dL TRIGLYCERIDE 115 mg/dL 0-150 LDL calculated 85 mg/dL 0-129 CHOL/HDL 3.2 HDL CHOLESTEROL 50 mg/dL 40-60 Sep 12, 2023 08:42 AM [place] LIVER FUNCTION Specimen Type: SERUM No comment entered. Ordering Provider: JULIETA MOBLEY Report Released Date/Time: Sep 06, 2023 02:39 PM Reporting Lab: [facility] [address] [address] Performing Lab: [facility] [address] [address] PROTEIN,TOTAL 7.8 g/dL 6.0-8.3 ALBUMIN 4.1 g/dL 3.5-5.0 ALKALINE PHOSPHATASE 88 U/L 40-150 AST 15 U/L 5-34 ALT 16 U/L BILIRUBIN, TOTAL 0.7 mg/dL 0.2-1.2 Sep 12, 2023 08:42 AM [place] HEMOGLOBIN A1C PANEL Specimen Type: BLOOD Comment: [...] Sep 06, 2023 02:39 PM Reporting Lab: [facility] [address] [address] Performing Lab: [facility] [address] [address] HEMOGLOBIN A1C 5.4 4.0-5.6 Sep 12, 2023 08:42 AM [place] TSH Specimen Type: SERUM No comment entered. Ordering Provider: JULIETA MOBLEY Report Released Date/Time: Sep 06, 2023 02:39 PM Reporting Lab: [facility] [address] [address] Performing Lab: [facility] [address] [address] TSH 1.58 u[IU]/mL 0.35-5.00 Sep 12, 2023 08:42 AM [place] PSA Specimen Type: SERUM No comment entered. Ordering Provider: JULIETA MOBLEY Report Released Date/Time: Sep 06, 2023 02:39 PM Reporting Lab: [facility] [address] [address] Performing Lab: [facility] [address] [place] [address] PSA < 0.10 ng/mL 0.00-4.00 Sep 12, 2023 08:42 AM [place] CBC AND DIFF (AUTO) Specimen Type: BLOOD No comment entered. Ordering Provider: JULIETA MOBLEY Report Released Date/Time: Sep 06, 2023 02:39 PM Reporting Lab: [address] [address] Performing Lab: [address] [address] WBC 14.04 10*3/uL H 4.50-11.00 RBC 5.01 [...] and tobacco- related health factors from the [place] facility where the Encounter took place. Current Smoking Status This section includes the most current smoking, or tobacco-related health factor, from the [place] facility where the Encounter took place. Date/Time Current Smoking Status Comment Jarrod ity Oct 21, 2022 10:25 AM VA-TOBACCO FORMER USER [place] [facility] Tobacco Use History This section includes a history of the smoking, or tobacco-related health factors, that were collected on or before the date of the Encounter. The data comes from the [place] facility where the Encounter took place. Date/Time Smoking Status/Tobacco Use Comment F acility Oct 21, 2022 10:25 AM VA-TOBACCO QUIT 5 TO < 15 YRS [place] [facility] [place] [facility] Oct 01, 2021 09:59 AM VA-TOBACCO DOESNT USE WI 30 MIN WAKEUP [place] [facility] [place] [facility] Oct 01, 2021 09:59 AM VA-TOBACCO USE 30 YEARS OR MORE [place] [facility] [place] [facility] Oct 01, 2021 09:59 AM VA-TOBACCO USE ADVICE [place] [facility] [place] [facility] Oct 01, 2021 09:59 AM VA-TOBACCO USE SKIN INSTALLER NO [place] [facility] [place] [facility] Oct 01, 2021 09:59 AM VA-TOBACCO USE MED NO [place] [facility] [facility] Oct 01, 2021 09:59 AM VA-TOBACCO USER EVERY DAY [place] [facility] [place] [facility] Encounter Notes: All associated encounter notes This section contains the clinical notes associated to the Encounter. Date/Time Encounter Note(s) Provider Source Aug 31, 2023 11:26 AM ADMINISTRATIVE NOT E: LOCAL TITLE: CCC: SCHEDULING ADMINISTRATION STANDARD TITLE: ADMINISTRATIVE NOTE DATE OF NOTE: AUG 31, 2023@11:26:03 ENTRY DATE: AUG 31, 2023@11:26:03 AUTHOR: ANASTASIA VEGA EXP COSIGNER: URGENCY: STATUS: COMPLETED CCC: SCHEDULING ADMINISTRATION Has ADDENDA Patient Demographics Patient Name: LARRY RODAS Patient Primary Phone: [phone] Patient Primary Address: [address] [place] [address] Patient : 1945 Patient Age: 77 Call Back Number: Caller/Recipient Relation to Patient: Self Administrative Administrative Note Reason: Lab / Imaging Results Administrative Note Comments: [place] is requesting labs to be ordered prior to his coming PCP appointment. states he usually gets labs done once per year and states it has been over a year since it has been done. [place] would like a call to confirm the lab orders are in, and can be reached at: /sunni/ ANASTASIA VEGA Signed: 08/31/2023 11:26 Receipt Acknowledged By: 09/05/2023 15:34 /es/ NANDA MACIELN RN-BC REGISTERED NURSE 09/01/2023 11:38 /sunni/ SIDDHARTHA DICKEY LPN Licensed Practical Nurse 09/01/2023 ADDENDUM STATUS: COMPLETED Called without success. Left HIPAA compliant voicemail stating Dr Mobley will order labs after initial visit. /sunni/ SIDDHARTHA DICKEY LPN Licensed Practical Nurse Signed: 09/01/2023 11:43 ANASTASIA VEGA [place] [facility]
--- OUTSIDE RECORDS SUMMARY | 2024-03-09 11:12 | XMS_ITS | Encounter Summary ---
Author Name [facility] [place] [facility] [place] Address [address] [place] [address] Care Team Providers Care Hotel Supplies Salesperson Name Role Phone MARICRUZ BARBOSA Primary Care [...] (PPO) BASIC SELF Mar 22, 2009 [id number] [phone] KT RODAS PATIENT BCBS [facility] PREFERRED PROVIDER ORGANIZAT ION (PPO) BASIC INDIV IDUAL Mar 22, 2009 [id number] KT RODAS PATIENT [employer] FEPRX PLAN PRESCRIPT ION CAREM ARK FEPRX Mar 21, 2010 [id number] KT RODAS PATIENT MEDICARE (WNR) MEDICARE (M) PART B Dec 19, 2012 PART B [id number] KT RODAS PATIENT MEDICARE (WNR) MEDICARE (M) PART B Dec 19, 2012 PART B [id number] KT RODAS PATIENT MEDICARE (WNR) MEDICARE (M) PART B Dec 19, 2012 PART B [id number] [phone] KT RODAS PATIENT MEDICARE (WNR) MEDICARE (M) PART B Dec 19, 2012 PART B [id number] KT RODAS PATIENT MEDICARE (WNR) MEDICARE (M) PART A Nov 19, 2012 PART A [id number] KT RODAS PATIENT MEDICARE (WNR) MEDICARE (M) PART A Nov 19, 2012 PART A [id number] KT RODAS PATIENT MEDICARE (WNR) MEDICARE (M) PART A Nov 19, 2012 PART A [id number] KT RODAS PATIENT MEDICARE (WNR) MEDICARE (M) PART A Nov 19, 2012 PART A [id number] [phone] KT RODAS PATIENT Selected Encounter This section includes the information on record at NE for the Encounter. Date/Time Encounter Type Encounter Description Reason Pro vider Source Sep 01, 2023 03:32 PM Outpatient Encounter PRIMARY CARE/MEDICINE IHE Encounter Template Text not used by NE Plan of Treatment: Future Appointments (+ 6 months) and Future Tests (+/- 45 days) The Plan of Treatment section includes future care activities for the patient from all [place] treatmentfacilities. This section includes future appointments and future orders which are active, pending or scheduled. Future Appointments This section includes appointments that were scheduled to occur 6 months from the date of the Encounter, up to a maximum of 20 appointments. The data comes from all [place] treatment facilities. Appointment Date/Time Appointment Type Appointme nt Facility Name Sep 06, 2023 02:00 PM [facility] Nov 18, 2023 08:45 AM [facility] Nov 23, 2023 09:15 AM [facility] Nov 23, 2023 09:30 AM [facility] Dec 26, 2023 11:00 AM AMBULATORY - NONE [place] [facility] [place] [facility] Jan 19, 2024 03:00 PM AMBULATORY - MEDICINE [place] [facility] [place] [facility] Feb 23, 2024 09:30 AM AMBULATORY - MEDICINE [facility] Lab Results: +/- 30 days of the encounter This section includes the Chemistry and Hematology Lab Results on record with NE for the patient. Radiology Reports and Pathology Reports are provided separately, in subsequent sections. Lab Results This section contains the Chemistry/Hematology Results that were resulted 30 days before or 30 daysafter the date of the Encounter. Date/Time Source Result Type Result - Unit Interpretation Reference Range Comment Sep 12, 2023 08:42 AM [facility] BASIC METABOLIC PANEL (fasting) Specime n Type: SERUM No comment entered. Ordering Provider: JULIETA MOBLEY Report Released Date/Time: Sep 06, 2023 02:39 PM Reporting Lab: [address] [address] Performing Lab: [address] [address] UREA NITROGEN 10 mg/dL 7-25 GLUCOSE 108 mg/dL H 65-100 SODIUM 137 mmol/L 135-145 POTASSIUM 4.2 mmol/L 3.5-5.0 CHLORIDE 104 mmol/L 100-110 CO2 22 meq/L 20-30 CREATININE, Serum 0.98 mg/dL 0.50-1.40 eGFR(CKD-EPI 2020) 80 mL/min >60 Sep 12, 2023 08:42 AM [facility] LIPID PANEL FASTING Specimen Type: SERUM No comment entered. Ordering Provider: JULIETA MOBLEY Report Released Date/Time: Sep 06, 2023 02:39 PM Reporting Lab: [address] [address] Performing Lab: [address] [address] CHOLESTEROL 158 mg/dL TRIGLYCERIDE 115 mg/dL 0-150 LDL calculated 85 mg/dL 0-129 CHOL/HDL 3.2 HDL CHOLESTEROL 50 mg/dL 40-60 Sep 12, 2023 08:42 AM [facility] HEMOGLOBIN A1C PANEL Specimen Type: BLOOD Comment: [...] Sep 06, 2023 02:39 PM Reporting Lab: [facility] [address] [address] Performing [facility]: [facility] [address] HEMOGLOBIN A1C 5.4 4.0-5.6 Sep 12, 2023 08:42 AM [facility] LIVER FUNCTION Specimen Type: SERUM No comment entered. Ordering Provider: JULIETA MOBLEY Report Released Date/Time: Sep 06, 2023 02:39 PM Reporting Lab: [facility] [address] Performing [facility]: [facility] [address] [address] PROTEIN,TOTAL 7.8 g/dL 6.0-8.3 ALBUMIN 4.1 g/dL 3.5-5.0 ALKALINE PHOSPHATASE 88 U/L 40-150 AST 15 U/L 5-34 ALT 16 U/L BILIRUBIN, TOTAL 0.7 mg/dL 0.2-1.2 Sep 12, 2023 08:42 AM [facility] TSH Specimen Type: SERUM No comment entered. Ordering Provider: JULIETA MOBLEY Report Released Date/Time: Sep 06, 2023 02:39 PM Reporting Lab: [facility] [address] [address] Performing Lab: [facility] [address] [address] TSH 1.58 u[IU]/mL 0.35-5.00 Sep 12, 2023 08:42 AM [facility] PSA Specimen Type: SERUM No comment entered. Ordering Provider: JULIETA MOBLEY Report Released Date/Time: Sep 06, 2023 02:39 PM Reporting Lab: [facility] [address] [address] Performing Lab: [facility] [address] PSA < 0.10 ng/mL 0.00-4.00 Sep 12, 2023 08:42 AM [facility] CBC AND DIFF (AUTO) Specimen Type: BLOOD No comment entered. Ordering Provider: JULIETA MOBLEY Report Released Date/Time: Sep 06, 2023 02:39 PM Reporting Lab: [facility] [address] [facility] [address] Performing [facility]: [facility] [address] [facility] [facility] [address] WBC 14.04 10*3/uL H 4.50-11.00 RBC 5.01 [...] and tobacco- related health factors from the [place] facility where the Encounter took place. Current Smoking Status This section includes the most current smoking, or tobacco-related health factor, from the [place] facility where the Encounter took place. Date/Time Current Smoking Status Comment Jarrod ity Oct 21, 2022 10:25 AM VA-TOBACCO FOR[facility] USER [facility] Tobacco Use History This section includes a history of the smoking, or tobacco-related health factors, that were collected on or before the date of the Encounter. The data comes from the NE facility where the Encounter took place. Date/Time Smoking Status/Tobacco Use Comment F acility Oct 21, 2022 10:25 AM VA-TOBACCO QUIT 5 TO < 15 YRS [facility] Oct 01, 2021 09:59 AM VA-TOBACCO DOESNT USE WI 30 MIN WAKEUP [facility] Oct 01, 2021 09:59 AM VA-TOBACCO USE 30 YEARS OR MORE [place] [facility] [place] [facility] Oct 01, 2021 09:59 AM VA-TOBACCO USE ADVICE [facility] Oct 01, 2021 09:59 AM VA-TOBACCO USE AUDITOR NO [facility] Oct 01, 2021 09:59 AM VA-TOBACCO USE MED NO [facility] Oct 01, 2021 09:59 AM VA-TOBACCO USER EVERY DAY [facility] Encounter Notes: All associated encounter notes This section contains the clinical notes associated to the Encounter. Date/Time Encounter Note(s) Provider Source Sep 01, 2023 03:32 PM ADMINISTRATIVE NOT E: LOCAL TITLE: ADMINISTRATIVE NOTE STANDARD TITLE: ADMINISTRATIVE NOTE DATE OF NOTE: SEP 01, 2023@15:32 ENTRY DATE: SEP 01, 2023@15:32:15 AUTHOR: ANALIA TOBAR COSIGNER: URGENCY: STATUS: COMPLETED THIS QUALITY CONTROL ANALYST HAD SPOKEN TO TO REMIND OF F2F APPT WITH CWM/SO/PACT EIGHT PROVIDER ON 09/06/2023 AT 14:00 FOR NECK NODULES AND ANNUAL NO LABS. THIS QUALITY CONTROL ANALYST REQUESTED RECORDS FROM [facility]. /sunni/ CALI TOBAR ADVANCED AUTOMOTIVE FINANCE MANAGER Signed: 09/01/2023 15:39 Receipt Acknowledged By: 09/05/2023 15:35 /es/ NANDA MACIELN RN-BC REGISTERED NURSE 09/01/2023 15:42 /es/ SIDDHARTHA DICKEY LPN Licensed Practical Nurse CALI TOBAR
--- OUTSIDE RECORDS SUMMARY | 2024-03-09 11:12 | XMS_ITS | Encounter Summary ---
Author Name [facility] [place] [facility] [place] Address [address] [place] [address] Care Team Providers Care Cotton Grower Name Role Phone MARICRUZ BARBOSA Primary Care [...] (PPO) BASIC SELF Mar 22, 2009 [id number] [phone] KT RODAS PATIENT BCBS [place] FEP PREFERRED PROVIDER ORGANIZAT ION (PPO) BASIC INDIV IDUAL Mar 22, 2009 111 [id number] KT RODAS PATIENT [employer] FEPRX PLAN PRESCRIPT ION CAREM ARK FEPRX Mar 21, 2010 [id number] KT RODAS PATIENT MEDICARE (WNR) MEDICARE (M) PART B Dec 19, 2012 PART B [id number] KT RODAS PATIENT MEDICARE (WNR) MEDICARE (M) PART B Dec 19, 2012 PART B [id number] [phone] KT RODAS PATIENT MEDICARE (WNR) MEDICARE (M) PART B Dec 19, 2012 PART B [id number] KT RODAS PATIENT MEDICARE (WNR) MEDICARE (M) PART B Dec 19, 2012 PART B [id number] KT RODAS PATIENT MEDICARE (WNR) MEDICARE (M) PART A Nov 19, 2012 PART A [id number] KT RODAS PATIENT MEDICARE (WNR) MEDICARE (M) PART A Nov 19, 2012 PART A [id number] KT RODAS PATIENT MEDICARE (WNR) MEDICARE (M) PART A Nov 19, 2012 PART A [id number] [phone] KT RODAS PATIENT MEDICARE (WNR) MEDICARE (M) PART A Nov 19, 2012 PART A [id number] KT RODAS PATIENT Selected Encounter This section includes the information on record at CT for the Encounter. Date/Time Encounter Type Encounter Description Reason Pro vider Source Dec 20, 2023 02:05 PM Outpatient Encounter ADMIN PAT ACTIVTIES (MASNONCT) IHE Encounter Template Text not used by CT Plan of Treatment: Future Appointments (+ 6 months) and Future Tests (+/- 45 days) The Plan of Treatment section includes future care activities for the patient from all CT treatmentfacilities. This section includes future appointments and future orders which are active, pending or scheduled. Future Appointments This section includes appointments that were scheduled to occur 6 months from the date of the Encounter, up to a maximum of 20 appointments. The data comes from all CT treatment facilities. Appointment Date/Time Appointment Type Appointme nt Facility Name Dec 26, 2023 11:00 AM AMBULATORY - NONE [place] [facility] [place] [place] [facility] Jan 19, 2024 03:00 PM AMBULATORY - MEDICINE [facility] [place] [facility] Feb 23, 2024 09:30 AM AMBULATORY - MEDICINE [facility] [place] [facility] Mar 05, 2024 10:00 AM [...] of theEncounter. The data comes from all CT treatment facilities. 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 Current Smoking Status This section includes the most current smoking, or tobacco-related health factor, from the [place] facility where the Encounter took place. Date/Time Current Smoking Status Comment Facil ity Oct 21, 2022 10:25 AM VA-TOBACCO QUIT 5 TO < 15 YRS [facility] Tobacco Use History This section includes a history of the smoking, or tobacco-related health factors, that were collected on or before the date of the Encounter. The data comes from the CT facility where the Encounter took place. Date/Time Smoking Status/Tobacco Use Comment F acility Oct 21, 2022 10:25 AM VA-TOBACCO QUIT 5 TO < [address] [facility] [place] [facility] Oct 01, 2021 09:59 AM VA-TOBACCO DOESNT USE WI 30 MIN [facility] [place] [facility] Oct 01, 2021 09:59 AM VA-TOBACCO USE [address] [facility] [place] [place] [facility] Oct 01, 2021 09:59 AM VA-TOBACCO USE ADVICE CT [facility] [place] [place] [facility] Oct 01, 2021 09:59 AM VA-TOBACCO USE VP MOBILE PRODUCTS NO [place] [facility] [place] [facility] Oct 01, 2021 09:59 AM VA-TOBACCO USE MED NO [place] [facility] [place] [place] [facility] Oct 01, 2021 09:59 AM VA-TOBACCO USER EVERY DAY [facility] Radiology Reports: +/- 30 days of [...] the Encounter. The data comes from all CT treatment facilities. Date/Time Radiology Report Provider Source Dec 26, 2023 10:55 AM LDCT LUNG CANCER SCREENING: LARRY RODAS [id number] -1945 M Exm Date: DEC 26, 2023@10:55 Req Phys: QUETA LARKIN Loc: ZZCWM/NO/LCS ADMIN (Req'g Loc) Img Loc: NHM/CT Service: [facility] [place] [address] (Case 87 COMPLETE) LDCT LUNG CANCER SCREENING (CT Detailed) CPT:12515 Reason for Study: Lung Cancer Screening Clinical History: 56 TPY Currently smoking Comparison: CT scan of the chest from 12/23/2022, December 23, 2021, December 22, 2020, December 17, 2019, December 13, 2018 and November 07, 2017. Report Status: Verified Date Reported: DEC 26, 2023 Date Verified: DEC 26, 2023 Supply Technician E-Sig:/ES/KATH PURDY JR Report: Study: Lung cancer [...] reviewed. Secondary computer-aided detection with post-processing from [employer] is used. The lack of intravenous contrast [...] Primary Interpreting Staff: KATH PURDY JR, Radiologist (Supply Technician) /KATH GASPAR JR [facility] Encounter Notes: All associated encounter notes This section contains the clinical notes associated to the Encounter. Date/Time Encounter Note(s) Provider Source Dec 20, 2023 02:05 PM ADMINISTRATIVE NOT E: LOCAL TITLE: CCC: SCHEDULING ADMINISTRATION STANDARD TITLE: ADMINISTRATIVE NOTE DATE OF NOTE: DEC 20, 2023@14:05:25 ENTRY DATE: DEC 20, 2023@14:05:26 AUTHOR: ANASTASIA VEGA COSIGNER: URGENCY: STATUS: COMPLETED CCC: SCHEDULING ADMINISTRATION Has ADDENDA Patient Demographics Patient Name: LARRY RODAS Patient Primary Phone: [phone] Patient Primary [address]: [address] [place] [id number] Patient : 1945 Patient Age: 78 Call Back Number: [phone] Caller/Recipient Relation to Patient: Self Administrative Administrative Note Reason: Other Administrative Note Comments: Maisha is looking for a dental referral to an oral surgeon to get two infected teeth extracted. Maisha states he used his federal blue cross blue shield to make the initial dental appointment, which is how he figured out he had two infected teeth that need to be taken care of. Maisha stated his [facility] insurance will not cover the cost of the surgery. Maisha was seen on 12/20/2023 at [facility] on [address] [place] [address], [place] [address], ph #: [phone], who gave him the referral to [facility] on [address] [place] [address], [place] [address] ph #: [phone]. Maisha is in an extreme amount of pain, so as quick as this can be processed is greatly appreciated. Maisha can be reached at: [phone] IMPORTANT: This note was created by [facility] Clinical Contact Center staff. Please do not alert the staff member by adding them as a signer for future communications. Alerts are not monitored by this user. /sunni/ ANASTASIA VEGA Signed: 12/20/2023 14:05 Receipt Acknowledged By: 12/22/2023 13:04 /sunni/ YOJANA MACIEL RN-BC REGISTERED NURSE 12/23/2023 13:05 /sunni/ JULIETA MOBLEY MD PRIMARY CARE PHYSICIAN 12/22/2023 ADDENDUM STATUS: COMPLETED Called and provided him with contact number for [facility] dental dept in [place] to discuss dental needs and to get assistance with treatment for teeth. /sunni/ YOJANA MACIEL RN-BC REGISTERED NURSE Signed: 12/22/2023 13:[address] [facility]
--- OUTSIDE RECORDS SUMMARY | 2024-03-09 11:13 | XMS_ITS | Encounter Summary ---
Author Name [facility] [place] [facility] [place] Address [address] [place] [address] Care Team Providers Care Didactic Program In Dietetics Director Name Role Phone MARICRUZ BARBOSA Primary Care [...] (PPO) BASIC SELF Mar 22, 2009 [id number] [phone] KT RODAS PATIENT BCBS [facility] PREFERRED PROVIDER ORGANIZAT ION (PPO) BASIC INDIV IDUAL Mar 22, 2009 [id number] KT RODAS PATIENT [employer] FEPRX PLAN PRESCRIPT ION CAREM ARK FEPRX Mar 21, 2010 [id number] KT RODAS PATIENT MEDICARE (WNR) MEDICARE (M) PART B Dec 19, 2012 PART B [id number] KT RODAS PATIENT MEDICARE (WNR) MEDICARE (M) PART B Dec 19, 2012 PART B [id number] KT RODAS PATIENT MEDICARE (WNR) MEDICARE (M) PART B Dec 19, 2012 PART B [id number] [phone] KT RODAS PATIENT MEDICARE (WNR) MEDICARE (M) PART B Dec 19, 2012 PART B [id number] [phone] KT RODAS PATIENT MEDICARE (WNR) MEDICARE (M) PART A Nov 19, 2012 PART A [id number] KT RODAS PATIENT MEDICARE (WNR) MEDICARE (M) PART A Nov 19, 2012 PART A [id number] KT RODAS PATIENT MEDICARE (WNR) MEDICARE (M) PART A Nov 19, 2012 PART A [id number] KT RODAS PATIENT MEDICARE (WNR) MEDICARE (M) PART A Nov 19, 2012 PART A [id number] KT RODAS PATIENT Selected Encounter This section includes the information on record at [place] for the Encounter. Date/Time Encounter Type Encounter Description Reason Pro vider Source Mar 05, 2024 12:00 AM Outpatient Encounter EVENT (HISTORICAL) IHE Encounter Template Text not used by [place] Plan of Treatment: Future Appointments (+ 6 [...] Date/Time Appointment Type Appointme nt Facility Name Aug 27, 2024 10:00 AM AMBULATORY - MEDICINE SPRI [...] of theEncounter. The data comes from all [place] treatment facilities. Test Date/Time Test Type Test Details Facility Name Jan 25, 2024 08:56 AM Consult Order COMMUNITY CARE-DENTAL SPECIALTY Cons Drapery Supervisor's Choice [facility] [place] [facility] Mar 05, 2024 12:09 PM Consult Order [facility] H[facility]PITAL-COLONOSCOPY SCREENING WITH EGD Cons Drapery Supervisor's [facility] Mar 05, 2024 12:09 PM Consult Order TELE-EYE S CREENING CONSULT/SPOPC (OUTPT) Cons Drapery Supervisor's [facility] Lab Results: +/- 30 days of the encounter This section includes the Chemistry and Hematology Lab Results on record with [place] for the patient. Radiology Reports and Pathology Reports are provided separately, in subsequent sections. Lab Results This section contains the Chemistry/Hematology Results that were resulted 30 days before or 30 daysafter the date of the Encounter. Date/Time Source Result Type Result - Unit Interpretation Reference Range Comment Mar 01, 2024 09:24 AM [facility] LIPID PANEL FASTING Specimen Type: SERUM No comment entered. Ordering Provider: MARICRUZ BARBOSA Report Released Date/Time: Feb 29, 2024 02:28 PM Reporting Lab: [facility] [address] [address] Performing Lab: [facility] [address] [address] CHOLESTEROL 164 mg/dL TRIGLYCERIDE 114 mg/dL 0-150 LDL calculated 89 mg/dL 0-129 CHOL/HDL 3.2 HDL CHOLESTEROL 52 mg/dL 40-60 Mar 01, 2024 09:24 AM [facility] BASIC METABOLIC PANEL (fasting) Specimen Type: SERUM No comment entered. Ordering Provider: MARICRUZ BARBOSA Report Released Date/Time: Feb 29, 2024 02:28 PM Reporting Lab: [facility] [address] [address] Performing Lab: [facility] [address] UREA NITROGEN 10 mg/dL 7-25 GLUCOSE 105 mg/dL H 65-100 SODIUM 137 mmol/L 135-145 POTASSIUM 4.6 mmol/L 3.5-5.0 CHLORIDE 103 mmol/L 100-110 CO2 24 meq/L 20-30 CREATININE, Serum 0.92 mg/dL 0.50-1.40 eGFR(CKD-EPI 2020) 86 mL/min >60 Mar 01, 2024 09:24 AM [facility] LIVER FUNCTION Specimen Type: SERUM No comment entered. Ordering Provider: MARICRUZ BARBOSA Report Released Date/Time: Feb 29, 2024 02:28 PM Reporting Lab: [facility] [address] [address] Performing Lab: [facility] [address] [address] PROTEIN,TOTAL 7.9 g/dL 6.0-8.3 ALBUMIN 4.0 g/dL 3.5-5.0 ALKALINE PHOSPHATASE 90 U/L 40-150 AST 13 U/L 5-34 ALT 11 U/L BILIRUBIN, TOTAL 0.6 mg/dL 0.2-1.2 Mar 01, 2024 09:24 AM [facility] HEMOGLOBIN A1C PANEL Specimen Type: BLOOD Comment: Values obtained from A1C measurements can vary. For atypical A1C assays, a reported value of 7.0 could actually be between 6.72 and 7.28 if measured by a reference method. A reported value of 9.0 could actually be between 8.73 and 9.27. Ref: http://www.ngs p.org/CAPdata. asp Ordering Provider: MARICRUZ BARBOSA Report Released Date/Time: Feb 29, 2024 02:28 PM Reporting Lab: [facility] [address] [facility] [facility] [address] Performing Lab: [address] [address] HEMOGLOBIN A1C 5.5 4.0-5.6 Mar 01, 2024 09:24 AM [facility] TSH Specimen Type: SERUM No comment entered. Ordering Provider: MARICRUZ BARBOSA Report Released Date/Time: Feb 29, 2024 02:28 PM Reporting Lab: [facility] [address] [facility] [facility] [address] Performing Lab: [address] [address] TSH 1.80 u[IU]/mL 0.35-5.00 Mar 01, 2024 09:24 AM [facility] MICROALBUMIN CREATININE RATIO PANEL Specimen Type: URINE No comment entered. Ordering Provider: MARICRUZ BARBOSA Report Released Date/Time: Feb 29, 2024 02:28 PM Reporting Lab: [facility] [address] [facility] [facility] [address] Performing Lab: [address] [address] MICROALBUMIN/C REATININE RATIO 361.0 mg/g H 0-29.9 MICROALBUMIN,Q UANTITATIVE 25.8 mg/dL RR UNAVAIL CREATININE URINE 71.47 mg/dL Mar 01, 2024 09:24 AM [facility] CBC AND DIFF (AUTO) Specimen Type: BLOOD No comment entered. Ordering Provider: MARICRUZ BARBOSA Report Released Date/Time: Feb 29, 2024 02:28 PM Reporting Lab: [facility] [address] [facility] [facility] [address] Performing Lab: [address] [address] WBC 15.13 10*3/uL H 4.50-11.00 RBC 5.01 10*6/uL 4.23-5.66 HGB 16.3 g/dL 12.8-17 HCT 46.3 39.2-50.4 MCV 92.4 fL 82-99 MCHC 35.2 g/dL H 30.8-35.1 PLT 316 10*3/uL 140-360 RDW-CV 12.7 12.0-16.0 MONO, ABS 1.43 10*3/uL H 0.30-1.10 MCH 32.5 pg 26.2-32.6 NEUT % 67.0 43.7-75.8 LYMPH % 17.1 14.0-42.3 MONO % 9.5 5.1-13.7 EOS % 5.0 0.4-6.8 BASO % 0.7 0.1-2.0 NEUT, ABS 10.15 10*3/uL H 2.20-7.60 LYMPH, ABS 2.59 10*3/uL 1.00-3.20 EOS, ABS 0.75 10*3/uL H 0.03-0.44 BASO, ABS 0.10 10*3/uL 0.01-0.13 IMMATURE GRAN % 0.7 0.0-0.7 IMMATURE GRAN, ABS 0.11 10*3/uL H 0.00-0.06 NRBC % 0.0 0.0-0.0 NRBC, ABS 0.00 10*3/uL 0.00-0.00 Mar 01, 2024 09:24 AM [facility] MICROSCOPIC AUTOMATED, URINE Specimen Type: URINE Comment: If Glucose = >500 and Ketones are positive, please alert the Physician. Ordering Provider: MARICRUZ BARBOSA Report Released Date/Time: Feb 29, 2024 02:28 PM Reporting Lab: [address] [address] Performing Lab: [address] [address] UA WBC 6-10 /[HPF] H 0-5 UA BACTERIA 1+ /[HPF] NoneObs UA MUCUS FEW /[LPF] Trace UA RBC 3-5 /[HPF] 0-3 UA WBC CLUMPS PRESENT /[HPF] None Mar 01, 2024 09:24 AM [facility] URINALYSIS Specimen Type: URINE Comment: If Glucose = >500 and Ketones are positive, please alert the Physician. Ordering Provider: MARICRUZ BARBOSA Report Released Date/Time: Feb 29, 2024 02:28 PM Reporting Lab: [address] [address] Performing Lab: [address] [address] UA COLOR Light-Yellow Yellow UA APPEARANCE Turbid Clear UA GLUCOSE Normal mg/dL Negative UA KETONES NEGATIVE mg/dL Negative UA BLOOD NEGATIVE mg/dL Negative UA PROTEIN 50 mg/dL Negative UA NITRITE POSITIVE mg/dL Negative UA BILIRUBIN NEGATIVE mg/dL Negative UA SPECIFIC GRAVITY 1.011 L 1.016-1.02 2 UA pH 7.0 5.0-9.0 UA UROBILINOGEN Normal mg/dL <2.0 UA LEUKOCYTE NEGATIVE Negative Social History: Smoking Status (Most current) and [...] VA-TOBACCO QUIT 5 TO < 15 YRS [place] [facility] Tobacco Use History This section includes a history of the smoking, or tobacco-related health factors, that were collected on or before the date of the Encounter. The data comes from the [place] facility where the Encounter took place. Date/Time Smoking Status/Tobacco Use Comment F acility Oct 21, 2022 10:25 AM VA-TOBACCO QUIT 5 TO < 15 YRS [place] [facility] [place] [facility] Oct 01, 2021 09:59 AM VA-TOBACCO DOESNT USE WI 30 MIN WAKEUP [place] [facility] [place] [facility] Oct 01, 2021 09:59 AM VA-TOBACCO USE 30 YEARS OR MORE [place] [facility] [place] [facility] Oct 01, 2021 09:59 AM VA-TOBACCO USE ADVICE [place] [facility] [place] [facility] Oct 01, 2021 09:59 AM VA-TOBACCO USE CLINICAL TRIALS SPECIALIST NO [place] [facility] [place] [facility] Oct 01, 2021 09:59 AM VA-TOBACCO USE MED NO [place] [facility] [place] [facility] Oct 01, 2021 09:59 AM VA-TOBACCO USER EVERY DAY [place] [facility] [place] [facility]
--- OUTSIDE RECORDS SUMMARY | 2024-03-09 11:13 | XMS_ITS | Encounter Summary ---
Author Name [facility] [place] Address [address] [place] [address] Care Team Providers Care Wharf Tender Head Name Role Phone MARICRUZ BARBOSA Primary Care [...] Name Patient's Relationship to Policy Gudino [facility] PREFERRED PROVIDER ORGANIZAT ION (PPO) BASIC SELF Mar 22, 2009 [id number] [phone] KT RODAS PATIENT BC[facility] PREFERRED PROVIDER ORGANIZAT ION (PPO) BASIC INDIV IDUAL Mar 22, 2009 111 [id number] KT RODAS PATIENT [employer] FEPRX PLAN PRESCRIPT ION CAREM ARK FEPRX Mar 21, 2010 [id number] KT RODAS PATIENT MEDICARE (WNR) MEDICARE (M) PART B Dec 19, 2012 PART B [id number] KT RODAS PATIENT MEDICARE (WNR) MEDICARE (M) PART B Dec 19, 2012 PART B [id number] KT RODAS PATIENT MEDICARE (WNR) MEDICARE (M) PART B Dec 19, 2012 PART B [id number] KT RODAS PATIENT MEDICARE (WNR) MEDICARE (M) PART B Dec 19, 2012 PART B [id number] KT RODAS PATIENT MEDICARE (WNR) MEDICARE (M) PART A Nov 19, 2012 PART A [id number] KT RODAS PATIENT MEDICARE (WNR) MEDICARE (M) PART A Nov 19, 2012 PART A [id number] KT RODAS PATIENT MEDICARE (WNR) MEDICARE (M) PART A Nov 19, 2012 PART A [id number] KT RODAS PATIENT MEDICARE (WNR) MEDICARE (M) PART A Nov 19, 2012 PART A [id number] KT RODAS PATIENT Selected Encounter This section includes the information on record at [place] for the Encounter. Date/Time Encounter Type Encounter Description Reason Provider Source Jan 06, 2024 07:56 PM Outpatient Encounter PRIMARY CARE/MEDICINE BEATRIZ SANDOVAL Encounter Template Text not used by [place] Plan of Treatment: Future Appointments (+ 6 months) and Future Tests (+/- 45 days) The Plan of Treatment section includes future care activities for the patient from all [place] treatmentfacilities. This section includes future appointments and future orders which are active, pending or scheduled. Future Appointments This section includes appointments that were scheduled to occur 6 months from the date of the Encounter, up to a maximum of 20 appointments. The data comes from all [place] treatment facilities. Appointment Date/Time Appointment Type Appointme nt Facility Name Jan 19, 2024 03:00 PM [facility] Feb 23, 2024 09:30 AM AMBULAT[facility] - MEDICINE [facility] Mar 05, 2024 10:00 AM AMBULATORY [...] of theEncounter. The data comes from all [place] treatment facilities. Test Date/Time Test Type Test Details Facility Name Jan 25, 2024 08:56 AM Consult Order COMMUNITY CARE-DENTAL SPECIALTY Cons Glove Presser's Choice [facility] Social History: Smoking Status (Most current) and Tobacco Use (All prior to encounter date) This section includes the most current, and the historical, smoking and tobacco- related health factors from the [place] facility where the Encounter took place. Current Smoking Status This section includes the most current smoking, or tobacco-related health factor, from the [place] facility where the Encounter took place. Date/Time Current Smoking Status Comment Facil ity Oct 21, 2022 10:25 AM [facility]ACCO [facility] Tobacco Use History This section includes a history of the smoking, or tobacco-related health factors, that were collected on or before the date of the Encounter. The data comes from the [place] facility where the Encounter took place. 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 Radiology Reports: +/- 30 days of [...] the Encounter. The data comes from all [place] treatment facilities. Date/Time Radiology Report Provider Source Dec 26, 2023 10:55 AM LDCT LUNG CANCER SCREENING: LARRY RODAS [id number] -[id number] M Exm Date: DEC 26, 2023@10:55 Req Phys: QUETA LARKIN Loc: ZZCWM/NO/LCS ADMIN (Req'g Loc) Img Loc: NHM/CT Service: [place] [address] (Case [id number] COMPLETE) LDCT LUNG CANCER SCREENING (CT Detailed) CPT:00875 Reason for Study: Lung Cancer Screening Clinical History: 56 TPY Currently smoking Comparison: CT scan of the chest from 12/23/2022, December 23, 2021, December 22, 2020, December 17, 2019, December 13, 2018 and November 07, 2017. Report Status: Verified Date Reported: DEC 26, 2023 Date Verified: DEC 26, 2023 Head Sampler E-Sig:/ES/KATH PURDY JR Report: Study: Lung cancer [...] reviewed. Secondary computer-aided detection with post-processing from [employer] is used. The lack of intravenous contrast [...] Primary Interpreting Staff: KATH PURDY JR, Radiologist (Head Sampler) /KATH GASPAR JR [facility] Encounter Notes: All associated encounter notes This section contains the clinical notes associated to the Encounter. Date/Time Encounter Note(s) Provider Source Jan 06, 2024 07:56 PM PRIMARY CARE [employer] E MESSAGING: LOCAL TITLE: PRIMARY CARE SECURE MESSAGING STANDARD TITLE: PRIMARY CARE SECURE MESSAGING DATE OF NOTE: JAN 06, 2024@19:56 ENTRY DATE: JAN 06, 2024@19:56:21 AUTHOR: BEATRIZ SANDOVAL COSIGNER: URGENCY: STATUS: COMPLETED ------Original Message ------- Sent: 01/06/2024 03:01 PM ET From: LARRY RODAS To: Maggie MOBLEY,_PRIMARYCARE_[facility] Subject: Medication:Renew Script Zero refills left on my OMEPRAZOLE 20MG EC CAP ------Original Message ------- Sent: 01/06/2024 07:56 PM ET From: BEATRIZ SANDOVAL To: LARRY RODAS Subject: Medication:Renew Script Good evening, I have forwarded your renewal request for omeprazole to Dr Mobley for review. Beatriz Lipscomb RN /sunni/ NANDA MACIELN RN-BC REGISTERED NURSE Signed: 01/06/2024 19:56 BEATRIZ SANDOVAL CN[facility]L [facility]N [facility]
--- OUTSIDE RECORDS SUMMARY | 2024-03-09 11:13 | XMS_ITS | Encounter Summary ---
Author Name [facility] [place] Organization [facility] [place] [facility] [place] Address [address] [place] [address] Care Team Providers Care Business Solutions Analyst Name Role Phone MARICRUZ BARBOSA Primary [...] (PPO) BASIC SELF Mar 22, 2009 [id number] [phone] KT RODAS PATIENT [facility] PREFERRED PROVIDER ORGANIZAT ION (PPO) BASIC INDIV IDUAL Mar 22, 2009 111 [id number] KT RODAS PATIENT [employer] FEPRX PLAN PRESCRIPT ION CAREM ARK FEPRX Mar 21, 2010 [id number] KT RODAS PATIENT MEDICARE (WNR) MEDICARE (M) PART B Dec 19, 2012 PART B [id number] KT RODAS PATIENT MEDICARE (WNR) MEDICARE (M) PART B Dec 19, 2012 PART B [id number] KT RODAS PATIENT MEDICARE (WNR) MEDICARE (M) PART B Dec 19, 2012 PART B [id number] KT RODAS PATIENT MEDICARE (WNR) MEDICARE (M) PART B Dec 19, 2012 PART B [id number] KT RODAS PATIENT MEDICARE (WNR) MEDICARE (M) PART A Nov 19, 2012 PART A [id number] [phone] KT RODAS PATIENT MEDICARE (WNR) MEDICARE (M) PART A Nov 19, 2012 PART A [id number] KT RODAS PATIENT MEDICARE (WNR) MEDICARE (M) PART A Nov 19, 2012 PART A [id number] KT RODAS PATIENT MEDICARE (WNR) MEDICARE (M) PART A Nov 19, 2012 PART A [id number] KT RODAS PATIENT Selected Encounter This section includes the information on record at [place] for the Encounter. Date/Time Encounter Type Encounter Description Reason Pro vider Source Mar 05, 2024 03:47 PM Outpatient Encounter PRIMARY CARE/MEDICINE IHE Encounter Template Text not used by MS Plan of Treatment: Future Appointments (+ 6 [...] of theEncounter. The data comes from all [place] treatment facilities. Test Date/Time Test Type Test Details Facility Name Jan 25, 2024 08:56 AM Consult Order COMMUNITY CARE-DENTAL SPECIALTY Cons [facility] [place] [facility] Mar 05, 2024 12:09 PM Consult Order [facility]-COLONOSCOPY SCREENING WITH EGD Cons Trip Follower's [facility] Mar 05, 2024 12:09 PM Consult Order TELE-EYE S CREENING CONSULT/SPOPC (OUTPT) Cons Trip Follower's [facility] Lab Results: +/- 30 days of the encounter This section includes the Chemistry and Hematology Lab Results on record with [place] for the patient. Radiology Reports and Pathology Reports are provided separately, in subsequent sections. Lab Results This section contains the Chemistry/Hematology Results that were resulted 30 days before or 30 daysafter the date of the Encounter. Date/Time Source Result Type Result - Unit Interpretation Reference Range Comment Mar 01, 2024 09:24 AM [facility] LIPID PANEL FASTING Specimen Type: SERUM No comment entered. Ordering Provider: MARICRUZ BARBOSA Report Released Date/Time: Feb 29, 2024 02:28 PM Reporting [facility] [address] [facility] [address] Performing Lab: [facility] [address] [facility] [address] CHOLESTEROL 164 mg/dL TRIGLYCERIDE 114 mg/dL 0-150 LDL calculated 89 mg/dL 0-129 CHOL/HDL 3.2 HDL CHOLESTEROL 52 mg/dL 40-60 Mar 01, 2024 09:24 AM [facility] BASIC METABOLIC PANEL (fasting) Specimen Type: SERUM No comment entered. Ordering Provider: MARICRUZ BARBOSA Report Released Date/Time: Feb 29, 2024 02:28 PM Reporting Lab: [facility] [address] [facility] [address] Performing Lab: [facility] [address] UREA NITROGEN 10 mg/dL 7-25 GLUCOSE 105 mg/dL H 65-100 SODIUM 137 mmol/L 135-145 POTASSIUM 4.6 mmol/L 3.5-5.0 CHLORIDE 103 mmol/L 100-110 CO2 24 meq/L 20-30 CREATININE, Serum 0.92 mg/dL 0.50-1.40 eGFR(CKD-EPI 2020) 86 mL/min >60 Mar 01, 2024 09:24 AM [facility] LIVER FUNCTION Specimen Type: SERUM No comment entered. Ordering Provider: MARICRUZ BARBOSA Report Released Date/Time: Feb 29, 2024 02:28 PM Reporting Lab: [facility] [address] [facility] [address] Performing Lab: [facility] [address] [facility] [address] PROTEIN,TOTAL 7.9 g/dL 6.0-8.3 ALBUMIN 4.0 g/dL 3.5-5.0 ALKALINE PHOSPHATASE 90 U/L 40-150 AST 13 U/L 5-34 ALT 11 U/L BILIRUBIN, TOTAL 0.6 mg/dL 0.2-1.2 Mar 01, 2024 09:24 AM [facility] HEMOGLOBIN A1C PANEL Specimen Type: BLOOD [...] Feb 29, 2024 02:28 PM Reporting Lab: [facility] [address] [facility] [address] Performing Lab: [address] [address] HEMOGLOBIN A1C 5.5 4.0-5.6 Mar 01, 2024 09:24 AM [facility] TSH Specimen Type: SERUM No comment entered. Ordering Provider: MARICRUZ BARBOSA Report Released Date/Time: Feb 29, 2024 02:28 PM Reporting Lab: [facility] [address] [facility] [address] Performing Lab: [address] [address] TSH 1.80 u[IU]/mL 0.35-5.00 Mar 01, 2024 09:24 AM [facility] CBC AND DIFF (AUTO) Specimen Type: BLOOD No comment entered. Ordering Provider: MARICRUZ BARBOSA Report Released Date/Time: Feb 29, 2024 02:28 PM Reporting Lab: [facility] [address] [facility] [address] Performing Lab: [facility] [address] [facility] [address] WBC 15.13 10*3/uL H 4.50-11.00 RBC 5.01 [...] 10*3/uL 0.00-0.00 Mar 01, 2024 09:24 AM [facility] MICROSCOPIC AUTOMATED, URINE Specimen Type: URINE Comment: If Glucose = >500 and Ketones are positive, please alert the Physician. Ordering Provider: MARICRUZ BARBOSA Report Released Date/Time: Feb 29, 2024 02:28 PM Reporting Lab: [address] [address] Performing Lab: [address] [address] UA WBC 6-10 /[HPF] H 0-5 UA BACTERIA 1+ /[HPF] NoneObs UA MUCUS FEW /[LPF] Trace UA RBC 3-5 /[HPF] 0-3 UA WBC CLUMPS PRESENT /[HPF] None Mar 01, 2024 09:24 AM [facility] MICROALBUMIN CREATININE RATIO PANEL Specimen Type: URINE No comment entered. Ordering Provider: MARICRUZ BARBOSA Report Released Date/Time: Feb 29, 2024 02:28 PM Reporting Lab: [address] [address] Performing Lab: [address] [address] MICROALBUMIN/C REATININE RATIO 361.0 mg/g H 0-29.9 MICROALBUMIN,Q UANTITATIVE 25.8 mg/dL RR UNAVAIL CREATININE URINE 71.47 mg/dL Mar 01, 2024 09:24 AM [facility] URINALYSIS Specimen Type: URINE Comment: If Glucose = >500 and Ketones are positive, please alert the Physician. Ordering Provider: MARICRUZ BARBOSA Report Released Date/Time: Feb 29, 2024 02:28 PM Reporting Lab: [address] [address] Performing Lab: [address] [address] UA COLOR Light-Yellow Yellow UA APPEARANCE Turbid [...] 21, 2022 10:25 AM VA-TOBACCO FORMER USER [facility] Tobacco Use History This section includes a history of the smoking, or tobacco-related health factors, that were collected on or before the date of the Encounter. The data comes from the [place] facility where the Encounter took place. 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 Date/Time Encounter Note(s) Provider Source Mar 05, 2024 03:47 PM NURSING NOTE: LOCAL TITLE: PRIMARY CARE NURSE NOTE STANDARD TITLE: NURSING NOTE DATE OF NOTE: MAR 05, 2024@15:47 ENTRY DATE: MAR 05, 2024@15:47:40 AUTHOR: INDY CASAREZ EXP COSIGNER: URGENCY: STATUS: COMPLETED [facility] form was mailed to [facility] Medical Affairs [address] [address], [facility], [place] [address]. /sunni/ DALJIT CASAREZ LPN LPN Signed: 03/05/2024 15:48 DALJIT CASAREZFIELD
--- OUTSIDE RECORDS SUMMARY | 2024-03-09 11:13 | XMS_ITS | Encounter Summary ---
Author Name [facility] [place] Address [address] [place] [address] Care Team Providers Care Solar Design Engineer Name Role Phone MARICRUZ BARBOSA Primary Care [...] Name Patient's Relationship to Policy Gudino [facility] PREFERRED PROVIDER ORGANIZAT ION (PPO) BASIC SELF Mar 22, 2009 [id number] [phone] KT RODAS PATIENT BC[facility] PREFERRED PROVIDER ORGANIZAT ION (PPO) BASIC INDIV IDUAL Mar 22, 2009 111 [id number] KT RODAS PATIENT [employer] FEPRX PLAN PRESCRIPT ION CAREM ARK FEPRX Mar 21, 2010 [id number] KT RODAS PATIENT MEDICARE (WNR) MEDICARE (M) PART B Dec 19, 2012 PART B [id number] KT RODAS PATIENT MEDICARE (WNR) MEDICARE (M) PART B Dec 19, 2012 PART B [id number] KT RODAS PATIENT MEDICARE (WNR) MEDICARE (M) PART B Dec 19, 2012 PART B [id number] KT RODAS PATIENT MEDICARE (WNR) MEDICARE (M) PART B Dec 19, 2012 PART B [id number] KT RODAS PATIENT MEDICARE (WNR) MEDICARE (M) PART A Nov 19, 2012 PART A [id number] KT RODAS PATIENT MEDICARE (WNR) MEDICARE (M) PART A Nov 19, 2012 PART A [id number] [id number] [id number] KT RODAS PATIENT MEDICARE (WNR) MEDICARE (M) PART A Nov 19, 2012 PART A [id number] KT RODAS PATIENT MEDICARE (WNR) MEDICARE (M) PART A Nov 19, 2012 PART A [id number] [phone] KT RODAS PATIENT Selected Encounter This section includes the information on record at [place] for the Encounter. Date/Time Encounter Type Encounter Description Reason Pro vider Source Feb 29, 2024 02:57 PM Outpatient Encounter PRIMARY CARE/MEDICINE IHE Encounter [...] Date/Time Appointment Type Appointme nt Facility Name Mar 05, 2024 10:00 AM [facility] [place] Aug 27, 2024 10:00 [facility] Active, Pending, and Scheduled Orders This section includes a listing of several types of active, pending, and scheduled orders, including clinic medications orders, diagnostic test orders, procedure orders and consult orders; where the start date of the order is 45 days before the date of the Encounter or 45 days after the date of theEncounter. The data comes from all [place] treatment facilities. Test Date/Time Test Type Test Details Facility Name Jan 25, 2024 08:56 AM Consult Order COMMUNITY CARE-DENTAL SPECIALTY [facility] Mar 05, 2024 12:09 PM Consult Order [facility]-COLONOSCOPY SCREENING WITH EGD [facility] Mar 05, 2024 12:09 PM Consult Order TELE-EYE S CREENING CONSULT/SPOPC (OUTPT) Cons [facility] Lab Results: +/- 30 days of the encounter This section includes the Chemistry and Hematology Lab Results on record with [place] for the patient. Radiology Reports and Pathology Reports are provided separately, in subsequent sections. Lab Results This section contains the Chemistry/Hematology Results that were resulted 30 days before or 30 daysafter the date of the Encounter. Date/Time Source Result Type Result - Unit Interpretation Reference Range Comment Mar 01, 2024 09:24 AM [facility] LIPID PANEL FASTING Specimen Type: SERUM No comment entered. Ordering Provider: MARICRUZ BARBOSA Report Released Date/Time: Feb 29, 2024 02:28 PM Reporting Lab: [facility] [address] [facility] [address] Performing Lab: [facility] [address] [facility] [address] CHOLESTEROL 164 mg/dL TRIGLYCERIDE 114 mg/dL 0-150 LDL calculated 89 mg/dL 0-129 CHOL/HDL 3.2 HDL CHOLESTEROL 52 mg/dL 40-60 Mar 01, 2024 09:24 AM [facility] LIVER FUNCTION Specimen Type: SERUM No comment entered. Ordering Provider: MARICRUZ BARBOSA Report Released Date/Time: Feb 29, 2024 02:28 PM Reporting Lab: [facility] [address] [facility] [address] Performing Lab: [address] [address] PROTEIN,TOTAL 7.9 g/dL 6.0-8.3 ALBUMIN 4.0 g/dL 3.5-5.0 ALKALINE PHOSPHATASE 90 U/L 40-150 AST 13 U/L 5-34 ALT 11 U/L BILIRUBIN, TOTAL 0.6 mg/dL 0.2-1.2 Mar 01, 2024 09:24 AM [facility] BASIC METABOLIC PANEL (fasting) Specimen Type: SERUM No comment entered. Ordering Provider: MARICRUZ BARBOSA Report Released Date/Time: Feb 29, 2024 02:28 PM Reporting Lab: [facility] [address] [facility] [address] Performing Lab: [facility] [address] [facility] [address] UREA NITROGEN 10 mg/dL 7-25 GLUCOSE 105 mg/dL H 65-100 SODIUM 137 mmol/L 135-145 POTASSIUM 4.6 mmol/L 3.5-5.0 CHLORIDE 103 mmol/L 100-110 CO2 24 meq/L 20-30 CREATININE, Serum 0.92 mg/dL 0.50-1.40 eGFR(CKD-EPI 2020) 86 mL/min >60 Mar 01, 2024 09:24 AM [facility] HEMOGLOBIN A1C PANEL Specimen Type: BLOOD [...] Feb 29, 2024 02:28 PM Reporting Lab: [address] [address] Performing Lab: [address] [address] HEMOGLOBIN A1C 5.5 4.0-5.6 Mar 01, 2024 09:24 AM [facility] TSH Specimen Type: SERUM No comment entered. Ordering Provider: MARICRUZ BARBOSA Report Released Date/Time: Feb 29, 2024 02:28 PM Reporting Lab: [facility] [address] [facility] [address] Performing Lab: [address] [address] TSH 1.80 u[IU]/mL 0.35-5.00 Mar 01, 2024 09:24 AM [facility] MICROALBUMIN CREATININE RATIO PANEL Specimen Type: URINE No comment entered. Ordering Provider: MARICRUZ BARBOSA Report Released Date/Time: Feb 29, 2024 02:28 PM Reporting Lab: [facility] [address] [facility] [address] Performing Lab: [facility] [address] [facility] [address] MICROALBUMIN/C REATININE RATIO 361.0 mg/g H 0-29.9 MICROALBUMIN,Q UANTITATIVE 25.8 mg/dL RR UNAVAIL CREATININE URINE 71.47 mg/dL Mar 01, 2024 09:24 AM [facility] CBC AND DIFF (AUTO) Specimen Type: BLOOD No comment entered. Ordering Provider: MARICRUZ BARBOSA Report Released Date/Time: Feb 29, 2024 02:28 PM Reporting Lab: [facility] [address] [facility] [address] Performing Lab: [address] [address] WBC 15.13 10*3/uL H 4.50-11.00 RBC 5.01 [...] 10*3/uL 0.00-0.00 Mar 01, 2024 09:24 AM [facility] MICROSCOPIC AUTOMATED, URINE Specimen Type: URINE Comment: If Glucose = >500 and Ketones are positive, please alert the Physician. Ordering Provider: MARICRUZ BARBOSA Report Released Date/Time: Feb 29, 2024 02:28 PM Reporting Lab: [address] [address] Performing Lab: [address] [address] UA WBC 6-10 /[HPF] H 0-5 UA BACTERIA 1+ /[HPF] NoneObs UA MUCUS FEW /[LPF] Trace UA RBC 3-5 /[HPF] 0-3 UA WBC CLUMPS PRESENT /[HPF] None Mar 01, 2024 09:24 AM [facility] URINALYSIS Specimen Type: URINE Comment: If Glucose = >500 and Ketones are positive, please alert the Physician. Ordering Provider: MARICRUZ BARBOSA Report Released Date/Time: Feb 29, 2024 02:28 PM Reporting Lab: [address] [address] Performing Lab: [address] [address] UA COLOR Light-Yellow Yellow UA APPEARANCE Turbid [...] and tobacco- related health factors from the [place] facility where the Encounter took place. Current Smoking Status This section includes the most current smoking, or tobacco-related health factor, from the [place] facility where the Encounter took place. Date/Time Current Smoking Status Comment Facil ity Oct 21, 2022 10:25 AM VA-TOBACCO FORMER USER [place] [facility] [place] [facility] Tobacco Use History This section includes a history of the smoking, or tobacco-related health factors, that were collected on or before the date of the Encounter. The data comes from the [place] facility where the Encounter took place. Date/Time Smoking Status/Tobacco Use Comment F acmonse Oct 21, 2022 10:25 AM VA-TOBACCO QUIT 5 TO < 15 YRS [place] [facility] [place] [facility] Oct 01, 2021 09:59 AM VA-TOBACCO DOESNT USE WI 30 MIN WAKEUP [place] [facility] [facility] Oct 01, 2021 09:59 AM VA-TOBACCO USE 30 YEARS OR MORE [facility] [facility] Oct 01, 2021 09:59 AM VA-TOBACCO USE ADVICE [place] [facility] [facility] Oct 01, 2021 09:59 AM VA-TOBACCO USE SPECIAL POPULATION PARAPROFESSIONAL NO [facility] [place] [facility] Oct 01, 2021 09:59 AM VA-TOBACCO USE MED NO [place] [facility] [facility] Oct 01, 2021 09:59 AM VA-TOBACCO USER EVERY DAY [facility] [facility] Encounter Notes: All associated encounter notes This section contains the clinical notes associated to the Encounter. 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
--- OUTSIDE RECORDS SUMMARY | 2024-03-09 11:13 | XMS_ITS | Encounter Summary ---
Author Name [facility] [place] Organization [place] Address [address] [place] [address] Care Team Providers Care Furniture Crater Name Role Phone MARICRUZ BARBOSA Primary Care [...] (PPO) BASIC SELF Mar 22, 2009 [id number] [phone] KT RODAS PATIENT BCBS [facility] PREFERRED PROVIDER ORGANIZAT ION (PPO) BASIC INDIV IDUAL Mar 22, 2009 111 [id number] KT RODAS PATIENT CAREMARK FEPRX PLAN PRESCRIPT ION CAREM ARK FEPRX Mar 21, 2010 [id number] KT RODAS PATIENT MEDICARE (WNR) MEDICARE (M) PART B Dec 19, 2012 PART B [id number] KT RODAS PATIENT MEDICARE (WNR) MEDICARE (M) PART B Dec 19, 2012 PART B [id number] KT RODAS PATIENT MEDICARE (WNR) MEDICARE (M) PART B Dec 19, 2012 PART B [id number] KT RODAS PATIENT MEDICARE (WNR) MEDICARE (M) PART B Dec 19, 2012 PART B [id number] [id number] [phone] KT RODAS PATIENT MEDICARE (WNR) MEDICARE (M) PART A Nov 19, 2012 PART A [id number] KT RODAS PATIENT MEDICARE (WNR) MEDICARE (M) PART A Nov 19, 2012 PART A [id number] [phone] KT RODAS PATIENT MEDICARE (WNR) MEDICARE (M) PART A Nov 19, 2012 PART A [id number] KT RODAS PATIENT MEDICARE (WNR) MEDICARE (M) PART A Nov 19, 2012 PART A [id number] [phone] KT RODAS PATIENT Selected Encounter This section includes the information on record at [place] for the Encounter. Date/Time Encounter Type Encounter Description Reason Pro vider Source Jan 19, 2024 02:30 PM Outpatient Encounter PRIMARY CARE/MEDICINE IHE Encounter Template Text not used by [place] Plan of Treatment: Future Appointments (+ 6 months) and Future Tests (+/- 45 days) The Plan of Treatment section includes future care activities for the patient from all [place] treatmentfacilities. This section includes future appointments and future orders which are active, pending or scheduled. Future Appointments This section includes appointments that were scheduled to occur 6 months from the date of the Encounter, up to a maximum of 20 appointments. The data comes from all [place] treatment facilities. Appointment Date/Time Appointment Type Appointme nt Facility Name Feb 23, 2024 09:30 AM AMBULATORY - MEDICINE [place] [facility] Mar 05, 2024 10:00 AM [...] of theEncounter. The data comes from all [place] treatment facilities. Test Date/Time Test Type Test Details Facility Name Jan 25, 2024 08:56 AM Consult Order COMMUNITY CARE-DENTAL SPECIALTY Cons Train Announcer's Choice [facility] Social History: Smoking Status (Most current) and Tobacco Use (All prior to encounter date) This section includes the most current, and the historical, smoking and tobacco- related health factors from the [place] facility where the Encounter took place. Current Smoking Status This section includes the most current smoking, or tobacco-related health factor, from the [place] facility where the Encounter took place. Date/Time Current Smoking Status Comment Facil ity Oct 21, 2022 10:25 AM VA-TOBACCO [facility] Tobacco Use History This section includes a history of the smoking, or tobacco-related health factors, that were collected on or before the date of the Encounter. The data comes from the [place] facility where the Encounter took place. 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 The data comes from all [place] treatment facilities. Date/Time Radiology Report Provider Source Dec 26, 2023 10:55 AM LDCT LUNG CANCER SCREENING: LARRY RODAS [id number] -[id number] M Exm Date: DEC 26, 2023@10:55 Req Phys: QUETA LARKIN Em Loc: ZZCWM/NO/LCS ADMIN (Req'g Loc) Img Loc: NHM/CT Service: Unknown [place] [address] (Case 87 COMPLETE) LDCT LUNG CANCER SCREENING (CT Detailed) CPT:85985 Reason for Study: Lung Cancer Screening Clinical History: 56 TPY Currently smoking Comparison: CT scan of the chest from 12/23/2022, December 23, 2021, December 22, 2020, December 17, 2019, December 13, 2018 and November 07, 2017. Report Status: Verified Date Reported: DEC 26, 2023 Date Verified: DEC 26, 2023 Package Sealer E-Sig:/ES/KATH PURDY JR Report: Study: Lung cancer [...] reviewed. Secondary computer-aided detection with post-processing from Leaf is used. The lack of intravenous contrast [...] Primary Interpreting Staff: KATH PURDY JR, Radiologist (Package Sealer) /KATH GASPAR JR [facility] Encounter Notes: All associated encounter notes This section contains the clinical notes associated to the Encounter. Date/Time Encounter Note(s) Provider Source Jan 19, 2024 02:30 PM PHYSICIAN NOTE: LOCAL TITLE: MD NOTE STANDARD TITLE: PHYSICIAN NOTE DATE OF NOTE: JAN 19, 2024@14:30 ENTRY DATE: JAN 19, 2024@14:30:33 AUTHOR: JULIETA MOBLEY EXP COSIGNER: URGENCY: STATUS: COMPLETED I discussed the [place] by phone today at length about the incidental findings of his low-dose CT of the chest Atherosclerosis of coronaries and artery aortacontinue baby aspirin continue statins I advised him to keep healthy diet, exercise as tolerated and to quit smoking He is not interested in this moment to quit smoking Has mild emphysema but he denies any shortness of breath with exertion and he feels albuterol In regards with calcified splenic granuloma at the [place] denies any abdominal pain nausea vomiting no fever no chills He denies any back pain and he denies any mechanical fall in the past He needs to repeat low-dose of CAT scan in 1 year /sunni/ JULIETA MOBLEY MD PRIMARY CARE PHYSICIAN Signed: 01/19/2024 14:32 JULIETA MOBLEY [facility]
--- OUTSIDE RECORDS SUMMARY | 2024-03-09 11:13 | XMS_ITS | Encounter Summary ---
Author Name [facility] [place] Organization [place] Address [address] [place] [address] Care Team Providers Care Community Development Officer Name Role Phone MARICRUZ BARBOSA Primary [...] Patient's Relationship to Policy Gudino JONATHAN [facility] FEDERAL PREFERRED PROVIDER ORGANIZAT ION (PPO) BASIC SELF Mar 22, 2009 [id number] [phone] KT BRIONES PATIENT BCBS [facility] PREFERRED PROVIDER ORGANIZAT ION (PPO) BASIC INDIV IDUAL Mar 22, 2009 111 [id number] KT BRIONES PATIENT CAREMARK FEPRX PLAN PRESCRIPT ION CAREM ARK FEPRX Mar 21, 2010 [id number] KT BRIONES PATIENT MEDICARE (WNR) MEDICARE (M) PART B Dec 19, 2012 PART B [id number] KT BRIONES PATIENT MEDICARE (WNR) MEDICARE (M) PART B Dec 19, 2012 PART B [id number] [id number] [phone] KT BRIONES PATIENT MEDICARE (WNR) MEDICARE (M) PART B Dec 19, 2012 PART B [id number] KT BRIONES PATIENT MEDICARE (WNR) MEDICARE (M) PART B Dec 19, 2012 PART B [id number] KT BRIONES PATIENT MEDICARE (WNR) MEDICARE (M) PART A Nov 19, 2012 PART A [id number] KT BRIONES PATIENT MEDICARE (WNR) MEDICARE (M) PART A Nov 19, 2012 PART A [id number] KT BRIONES PATIENT MEDICARE (WNR) MEDICARE (M) PART A Nov 19, 2012 PART A [id number] 35A KT BRIONES PATIENT MEDICARE (WNR) MEDICARE (M) PART A Nov 19, 2012 PART A [id number] [phone] KT BRIONES PATIENT Selected Encounter This section includes the information on record at [place] for the Encounter. Date/Time Encounter Type Encounter Description Reason Provider Source Feb 07, 2024 08:14 AM Outpatient Encounter PRIMARY CARE/MEDICINE NOHEMI DICKEY Encounter Template Text not used by IN [...] 23, 2024 09:30 AM AMBULATORY - MEDICINE [place] C [facility] [facility] Mar 05, 2024 10:00 AM AMBULATORY [...] of theEncounter. The data comes from all [place] treatment facilities. Test Date/Time Test Type Test Details Facility Name Jan 25, 2024 08:56 AM Consult Order COMMUNITY CARE-DENTAL SPECIALTY [facility] Net Coordinator's [facility] Mar 05, 2024 12:09 PM Consult Order [facility]-COLONOSCOPY SCREENING WITH EGD Cons Net Coordinator's [facility] Mar 05, 2024 12:09 PM Consult Order TELE-EYE S CREENING CONSULT/SPOPC (OUTPT) Cons Net Coordinator's [facility] Lab Results: +/- 30 days of the encounter This section includes the Chemistry and Hematology Lab Results on record with [place] for the patient. Radiology Reports and Pathology Reports are provided separately, in subsequent sections. Lab Results This section contains the Chemistry/Hematology Results that were resulted 30 days before or 30 daysafter the date of the Encounter. Date/Time Source Result Type Result - Unit Interpretation Reference Range Comment Mar 01, 2024 09:24 AM [facility] LIVER FUNCTION Specimen Type: SERUM No comment entered. Ordering Provider: MARICRUZ BARBOSA Report Released Date/Time: Feb 29, 2024 02:28 PM Reporting Lab: [facility] [address] [address] Performing Lab: [facility] [address] [address] PROTEIN,TOTAL 7.9 g/dL 6.0-8.3 ALBUMIN 4.0 g/dL 3.5-5.0 ALKALINE PHOSPHATASE 90 U/L 40-150 AST 13 U/L 5-34 ALT 11 U/L BILIRUBIN, TOTAL 0.6 mg/dL 0.2-1.2 Mar 01, 2024 09:24 AM [facility] BASIC METABOLIC PANEL (fasting) Specimen Type: SERUM No comment entered. Ordering Provider: MARICRUZ BARBOSA Report Released Date/Time: Feb 29, 2024 02:28 PM Reporting Lab: [facility] [address] [address] Performing Lab: [address] [address] UREA NITROGEN 10 mg/dL 7-25 GLUCOSE 105 mg/dL H 65-100 SODIUM 137 mmol/L 135-145 POTASSIUM 4.6 mmol/L 3.5-5.0 CHLORIDE 103 mmol/L 100-110 CO2 24 meq/L 20-30 CREATININE, Serum 0.92 mg/dL 0.50-1.40 eGFR(CKD-EPI 2020) 86 mL/min >60 Mar 01, 2024 09:24 AM [facility] LIPID PANEL FASTING Specimen Type: SERUM No comment entered. Ordering Provider: MARICRUZ BARBOSA Report Released Date/Time: Feb 29, 2024 02:28 PM Reporting Lab: [facility] [address] [address] [address] Performing Lab: [address] [address] CHOLESTEROL 164 mg/dL TRIGLYCERIDE 114 mg/dL 0-150 LDL calculated 89 mg/dL 0-129 CHOL/HDL 3.2 HDL CHOLESTEROL 52 mg/dL 40-60 Mar 01, 2024 09:24 AM [facility] HEMOGLOBIN A1C PANEL Specimen Type: BLOOD [...] Feb 29, 2024 02:28 PM Reporting Lab: [facility] [address] Performing Lab: [facility] [address] HEMOGLOBIN A1C 5.5 4.0-5.6 Mar 01, 2024 09:24 AM [facility] TSH Specimen Type: SERUM No comment entered. Ordering Provider: MARICRUZ BARBOSA Report Released Date/Time: Feb 29, 2024 02:28 PM Reporting Lab: [address] [address] Performing Lab: [facility] [address] [address] [address] TSH 1.80 u[IU]/mL 0.35-5.00 Mar 01, 2024 09:24 AM [facility] CBC AND DIFF (AUTO) Specimen Type: BLOOD No comment entered. Ordering Provider: MARICRUZ BARBOSA Report Released Date/Time: Feb 29, 2024 02:28 PM Reporting Lab: [facility] [address] [facility] [address] Performing Lab: [facility] [address] [address] WBC 15.13 10*3/uL H 4.50-11.00 RBC 5.01 [...] 10*3/uL 0.00-0.00 Mar 01, 2024 09:24 AM [facility] MICROALBUMIN CREATININE RATIO PANEL Specimen Type: URINE No comment entered. Ordering Provider: MARICRUZ BARBOSA Report Released Date/Time: Feb 29, 2024 02:28 PM Reporting Lab: [facility] [address] [address] Performing Lab: [address] [address] MICROALBUMIN/C REATININE RATIO 361.0 mg/g H 0-29.9 MICROALBUMIN,Q UANTITATIVE 25.8 mg/dL RR UNAVAIL CREATININE URINE 71.47 mg/dL Mar 01, 2024 09:24 AM [facility] MICROSCOPIC AUTOMATED, URINE Specimen Type: URINE Comment: If Glucose = >500 and Ketones are positive, please alert the Physician. Ordering Provider: MARICRUZ BARBOSA Report Released Date/Time: Feb 29, 2024 02:28 PM Reporting Lab: [address] [address] Performing Lab: [address] [address] UA WBC 6-10 /[HPF] H 0-5 UA BACTERIA 1+ /[HPF] NoneObs UA MUCUS FEW /[LPF] Trace UA RBC 3-5 /[HPF] 0-3 UA WBC CLUMPS PRESENT /[HPF] None Mar 01, 2024 09:24 AM [facility] URINALYSIS Specimen Type: URINE Comment: If Glucose = >500 and Ketones are positive, please alert the Physician. Ordering Provider: MARICRUZ BARBOSA Report Released Date/Time: Feb 29, 2024 02:28 PM Reporting Lab: [address] [address] Performing Lab: [address] [address] UA COLOR Light-Yellow Yellow UA APPEARANCE Turbid [...] and tobacco- related health factors from the [place] facility where the Encounter took place. Current Smoking Status This section includes the most current smoking, or tobacco-related health factor, from the [place] facility where the Encounter took place. Date/Time Current Smoking Status Comment Facil ity Oct 21, 2022 10:25 AM VA-TOBACCO QUIT 5 TO < 15 YRS [facility] Tobacco Use History This section includes a history of the smoking, or tobacco-related health factors, that were collected on or before the date of the Encounter. The data comes from the [place] facility where the Encounter took place. 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 Date/Time Encounter Note(s) Provider Source Feb 07, 2024 08:14 AM PRIMARY CARE SECUR E MESSAGING: LOCAL TITLE: PRIMARY CARE SECURE MESSAGING STANDARD TITLE: PRIMARY CARE SECURE MESSAGING DATE OF NOTE: FEB 07, 2024@08:14 ENTRY DATE: FEB 07, 2024@08:14:34 AUTHOR: SIDDHARTHA DICKEY EXP COSIGNER: URGENCY: STATUS: COMPLETED ------Original Message -------- Sent: 02/05/2024 10:50 AM ET From: JOSE D BRIONES To: Annie BARBOSA A,_PRIMARYCARE_SPO Subject: Medication:Renew Script Forgot to mention in previous message that the script was OMEPRAZOLE 20MG EC CAP Also, there is zero refills left on the OMEPRAZOLE 20MG EC CAP, would like to get 90 day supplies. Thanks Jose D Briones /sunni/ SIDDHARTHA DICKEY LPN Licensed Practical Nurse Signed: 02/07/2024 08:14 Receipt Acknowledged By: 02/07/2024 08:24 /sunni/ JOHAN CARRION CERTIFIED NURSE PRACTITIONER SIDDHARTHA DICKEY [facility]
--- OUTSIDE RECORDS SUMMARY | 2024-03-09 11:13 | XMS_ITS | Encounter Summary ---
Author Name [place] Address [address] [place] [address] Care Team Providers Care Electrical Controls Designer Name Role Phone MARICRUZ BARBOSA Primary Care [...] Name Patient's Relationship to Policy Gudino JONATHAN [facility] FEDERAL PREFERRED PROVIDER ORGANIZAT ION (PPO) BASIC SELF Mar 22, 2009 111 [id number] [phone] KT BRIONES PATIENT BCBS [facility] PREFERRED PROVIDER ORGANIZAT ION (PPO) BASIC INDIV IDUAL Mar 22, 2009 111 [id number] KT BRIONES PATIENT CAREMARK FEPRX PLAN PRESCRIPT ION CAREM ARK FEPRX Mar 21, 2010 [id number] KT BRIONES PATIENT MEDICARE (WNR) MEDICARE (M) PART B Dec 19, 2012 PART B [id number] KT BRIONES PATIENT MEDICARE (WNR) MEDICARE (M) PART B Dec 19, 2012 PART B [id number] [phone] KT BRIONES PATIENT MEDICARE (WNR) MEDICARE (M) PART B Dec 19, 2012 PART B [id number] [phone] KT BRIONES PATIENT MEDICARE (WNR) MEDICARE (M) PART B Dec 19, 2012 PART B [id number] KT BRIONES PATIENT MEDICARE (WNR) MEDICARE (M) PART A Nov 19, 2012 PART A [id number] KT BRIONES PATIENT MEDICARE (WNR) MEDICARE (M) PART A Nov 19, 2012 PART A [id number] KT BRIONES PATIENT MEDICARE (WNR) MEDICARE (M) PART A Nov 19, 2012 PART A [id number] KT BRIONES PATIENT MEDICARE (WNR) MEDICARE (M) PART A Nov 19, 2012 PART A [id number] [phone] KT BRIONES PATIENT Selected Encounter This section includes the information on record at [place] for the Encounter. Date/Time Encounter Type Encounter Description Reason Provider Source Jan 06, 2024 06:56 PM Outpatient Encounter PRIMARY CARE/MEDICINE NOHEMI DICKEY Encounter Template Text not used by [place] [...] 19, 2024 03:00 PM AMBULATORY - [facility] Feb 23, 2024 09:30 AM AMBULATORY - MEDICINE [facility] Mar 05, 2024 10:00 AM [facility] [place] Active, Pending, and Scheduled Orders This section includes a listing of several types of active, pending, and scheduled orders, including clinic medications orders, diagnostic test orders, procedure orders and consult orders; where the start date of the order is 45 days before the date of the Encounter or 45 days after the date of theEncounter. The data comes from all [place] treatment facilities. Test Date/Time Test Type Test Details Facility Name Jan 25, 2024 08:56 AM Consult Order COMMUNITY CARE-DENTAL SPECIALTY Cons Tabulating Supervisor's Choice [facility] Social History: Smoking Status (Most current) [...] Facil ity Oct 21, 2022 10:25 AM [place]-TOBACCO QUIT 5 TO < 15 YRS [facility] Tobacco Use History This section includes a history of the smoking, or tobacco-related health factors, that were collected on or before the date of the Encounter. The data comes from the [place] facility where the Encounter took place. Date/Time Smoking Status/Tobacco Use Comment F acility Oct 21, 2022 10:25 AM [place]-TOBACCO QUIT 5 TO < 15 YRS [facility] Oct 01, 2021 09:59 AM VA-TOBACCO DOESNT USE WI 30 MIN WAKEUP [place] [facility] Oct 01, 2021 09:59 AM VA-TOBACCO USE 30 YEARS OR MORE [place] [facility] [place] [facility] Oct 01, 2021 09:59 AM VA-TOBACCO USE ADVICE [facility] Oct 01, 2021 09:59 AM VA-TOBACCO USE COPER HAND NO [place] [facility] [place] [facility] Oct 01, 2021 09:59 AM VA-TOBACCO USE MED NO [facility] [place] [facility] Oct 01, 2021 09:59 AM VA-TOBACCO USER EVERY DAY [facility] Radiology Reports: +/- 30 days of [...] the Encounter. The data comes from all [place] treatment facilities. Date/Time Radiology Report Provider Source Dec 26, 2023 10:55 AM LDCT LUNG CANCER SCREENING: JOSE D BRIONES [id number] -[id number] M Exm Date: DEC 26, 2023@10:55 Req Phys: QUETA LARKIN Loc: ZZCWM/NO/LCS ADMIN (Req'g Loc) Img Loc: NHM/CT Service: Unknown [facility] [place] [address] (Case 87 COMPLETE) LDCT LUNG CANCER SCREENING (CT Detailed) CPT:11160 Reason for Study: Lung Cancer Screening Clinical History: 56 TPY Currently smoking Comparison: CT scan of the chest from 12/23/2022, December 23, 2021, December 22, 2020, December 17, 2019, December 13, 2018 and November 07, 2017. Report Status: Verified Date Reported: DEC 26, 2023 Date Verified: DEC 26, 2023 Assistant Hairstylist E-Sig:/ES/KATH PURDY JR Report: Study: Lung cancer [...] reviewed. Secondary computer-aided detection with post-processing from [employer] is used. The lack of intravenous contrast [...] Primary Interpreting Staff: KATH PURDY JR, Radiologist (Assistant Hairstylist) /KATH GASPAR JR [facility] Encounter Notes: All associated encounter notes This section contains the clinical notes associated to the Encounter. Date/Time Encounter Note(s) Provider Source Feb 07, 2024 08:12 AM PRIMARY CARE [facility]/Incubator MESSAGING: LOCAL TITLE: PRIMARY CARE SECURE MESSAGING STANDARD TITLE: PRIMARY CARE SECURE MESSAGING DATE OF NOTE: FEB 07, 2024@08:12 ENTRY DATE: FEB 07, 2024@08:12:08 AUTHOR: SIDDHARTHA DICKEY COSIGNER: URGENCY: STATUS: COMPLETED ------Original Message -------- Sent: 02/05/2024 10:42 AM ET From: JOSE D BRIONES To: Annie BARBOSA FORMERLY Maggie MOBLEY,_PRIMARYCARE_SPOPC Subject: Medication:Renew Script Thank you, it used to be a 90 day supply, now it's 30 days and I have to renew every 3 weeks. Could you change it to 90 days like the rest of my maintenance prescriptions. Thank You Jose D Briones /sunni/ SIDDHARTHA DICKEY LPN Licensed Practical Nurse Signed: 02/07/2024 08:12 SIDDHARTHA DICKEY [facility]
--- OUTSIDE RECORDS SUMMARY | 2024-03-09 11:13 | XMS_ITS | Encounter Summary ---
Author Name [facility] [place] Address [address] [place] [address] Care Team Providers Care Clinical Pharmacy Technician Name Role Phone MARICRUZ BARBOSA Primary [...] (PPO) BASIC SELF Mar 22, 2009 [id number] [phone] KT RODAS PATIENT BCBS [facility] PREFERRED PROVIDER ORGANIZAT ION (PPO) BASIC INDIV IDUAL Mar 22, 2009 [id number] KT RODAS PATIENT [place] FEPRX PLAN PRESCRIPT ION CAREM ARK FEPRX Mar 21, 2010 [id number] KT RODAS PATIENT MEDICARE (WNR) MEDICARE (M) PART B Dec 19, 2012 PART B [id number] KT RODAS PATIENT MEDICARE (WNR) MEDICARE (M) PART B Dec 19, 2012 PART B [id number] [phone] KT RODAS PATIENT MEDICARE (WNR) MEDICARE (M) PART B Dec 19, 2012 PART B [id number] KT RODAS PATIENT MEDICARE (WNR) MEDICARE (M) PART B Dec 19, 2012 PART B [id number] KT RODAS PATIENT MEDICARE (WNR) MEDICARE (M) PART A Nov 19, 2012 PART A [id number] [phone] KT RODAS PATIENT MEDICARE (WNR) MEDICARE (M) PART A Nov 19, 2012 PART A [id number] KT RODAS PATIENT MEDICARE (WNR) MEDICARE (M) PART A Nov 19, 2012 PART A [id number] [phone] KT RODAS PATIENT MEDICARE (WNR) MEDICARE (M) PART A Nov 19, 2012 PART A [id number] KT RODAS PATIENT Selected Encounter This section includes the information on record at [place] for the Encounter. Date/Time Encounter Type Encounter Description Reason Pro vider Source Jan 06, 2024 07:57 PM Outpatient Encounter PRIMARY CARE/MEDICINE IHE Encounter Template Text not used by [place] Plan of Treatment: Future Appointments (+ 6 months) and Future Tests (+/- 45 days) The Plan of Treatment section includes future care activities for the patient from all [place] treatmentfacilities. This section includes future appointments and future orders which are active, pending or scheduled. Future Appointments This section includes appointments that were scheduled to occur 6 months from the date of the Encounter, up to a maximum of 20 appointments. The data comes from all [place] treatment facilities. Appointment Date/Time Appointment Type Appointme nt Facility Name Jan 19, 2024 03:00 PM AMBULATORY - MEDICINE [facility] Feb 23, 2024 09:30 AM AMBULATORY MEDICINE [facility] Mar 05, 2024 10:00 AM AMBULATORY [...] of theEncounter. The data comes from all [place] treatment facilities. Test Date/Time Test Type Test Details Facility Name Jan 25, 2024 08:56 AM Consult Order COMMUNITY CARE-DENTAL SPECIALTY Cons Senior Storage Administrator's Choice [facility] Social History: Smoking Status (Most current) and Tobacco Use (All prior to encounter date) This section includes the most current, and the historical, smoking and tobacco- related health factors from the [place] facility where the Encounter took place. Current Smoking Status This section includes the most current smoking, or tobacco-related health factor, from the [place] facility where the Encounter took place. Date/Time Current Smoking Status Comment Facil ity Oct 21, 2022 10:25 AM [place]-[facility]CO QUIT 5 TO < 15 [facility]RS [facility] Tobacco Use History This section includes a history of the smoking, or tobacco-related health factors, that were collected on or before the date of the Encounter. The data comes from the [place] facility where the Encounter took place. Date/Time Smoking Status/Tobacco Use Comment F acility Oct 21, 2022 10:25 AM VA-TOBACCO QUIT 5 TO < 15 YRS [facility] Oct 01, 2021 09:59 AM VA-TOBACCO DOESNT USE WI 30 MIN WAKEUP [facility] Oct 01, 2021 09:59 AM VA-TOBACCO USE 30 YEARS OR MORE [facility] Oct 01, 2021 09:59 AM VA-TO[facility]ACCO USE ADVICE [facility] Oct 01, 2021 09:59 AM VA-TOBACCO USE HYGIENE ASSISTANT NO [facility] Oct 01, 2021 09:59 AM VA-TOBACCO USE MED NO [facility] Oct 01, 2021 09:59 AM VA-TOBACCO USER EVERY DAY [facility] Radiology Reports: +/- 30 days of [...] the Encounter. The data comes from all [place] treatment facilities. Date/Time Radiology Report Provider Source Dec 26, 2023 10:55 AM LDCT LUNG CANCER SCREENING: LARRY RODAS [id number] -[id number] M Exm Date: DEC 26, 2023@10:55 Req Phys: QUETA LARKIN Loc: ZZCWM/NO/LCS ADMIN (Req'g Loc) Img Loc: NHM/CT Service: Unknown [facility] [place] [address] (Case [id number] COMPLETE) LDCT LUNG CANCER SCREENING (CT Detailed) CPT:94960 Reason for Study: Lung Cancer Screening Clinical History: 56 TPY Currently smoking Comparison: CT scan of the chest from 12/23/2022, December 23, 2021, December 22, 2020, December 17, 2019, December 13, 2018 and November 07, 2017. Report Status: Verified Date Reported: DEC 26, 2023 Date Verified: DEC 26, 2023 Weight Caller E-Sig:/ES/KATH PURDY JR Report: Study: Lung cancer [...] reviewed. Secondary computer-aided detection with post-processing from [employer] is used. The lack of intravenous contrast [...] Primary Interpreting Staff: KATH PURDY JR, Radiologist (Weight Caller) /KATH GASPAR JR [facility] Encounter Notes: All associated encounter notes This section contains the clinical notes associated to the Encounter. Date/Time Encounter Note(s) Provider Source Jan 06, 2024 07:57 PM MEDICATION MGT NOT E: LOCAL TITLE: OUTPATIENT MEDICATION REQUEST STANDARD TITLE: MEDICATION MGT NOTE DATE OF NOTE: JAN 06, 2024@19:57 ENTRY DATE: JAN 06, 2024@19:57:14 AUTHOR: BEATRIZ SANDOVAL COSIGNER: URGENCY: STATUS: COMPLETED Please renew for mail OMEPRAZOLE CAP,EC 20MG TAKE ONE CAPSULE BY MOUTH EVERY MORNING 30 MINUTES BEFORE BREAKFAST Quantity: 90 Refills: 2 Indication: FOR EXCESSIVE PRODUCTION OF STOMACH ACID /es/ YOJANA MACIEL RN-BC REGISTERED NURSE Signed: 01/06/2024 19:57 Receipt Acknowledged By: 01/11/2024 16:37 /es/ JULIETA MOBLEY MD PRIMARY CARE PHYSICIAN BEATRIZ SANDOVAL
--- OUTSIDE RECORDS SUMMARY | 2024-03-09 11:13 | XMS_ITS | Encounter Summary ---
Author Name [facility] [place] Organization [facility] Address [address] [place] [address] Care Team Providers Care Nuclear Equipment Test Engineer Name Role Phone STACY COOPER Primary Care [...] Patient's Relationship to Policy Gudino JONATHAN PEARCE [place] FEDERAL PREFERRED PROVIDER ORGANIZAT ION (PPO) BASIC SELF Mar 22, 2009 [id number] [phone] KT RODAS PATIENT [place]BS [place] F[place] PREFERRED PROVIDER ORGANIZAT ION (PPO) BASIC INDIV IDUAL Mar 22, 2009 [id number] KT RODAS PATIENT [employer] FEPRX PLAN PRESCRIPT ION CAREM ARK FEPRX Mar 21, 2010 [id number] KT RODAS PATIENT MEDICARE (WNR) MEDICARE (M) PART B Dec 19, 2012 PART B [id number] KT RODAS PATIENT MEDICARE (WNR) MEDICARE (M) PART B Dec 19, 2012 PART B [id number] [phone] KT RODAS PATIENT MEDICARE (WNR) MEDICARE (M) PART B Dec 19, 2012 PART B [id number] KT RODAS PATIENT MEDICARE (WNR) MEDICARE (M) PART B Dec 19, 2012 PART B [id number] [phone] KT RODAS PATIENT MEDICARE (WNR) MEDICARE (M) PART A Nov 19, 2012 PART A [id number] KT RODAS PATIENT MEDICARE (WNR) MEDICARE (M) PART A Nov 19, 2012 PART A [id number] KT RODAS PATIENT MEDICARE (WNR) MEDICARE (M) PART A Nov 19, 2012 PART A [id number] [phone] KT RODAS PATIENT MEDICARE (WNR) MEDICARE (M) PART A Nov 19, 2012 PART A [id number] KT RODAS PATIENT Selected Encounter This section includes the information on record at [place] for the Encounter. Date/Time Encounter Type Encounter Description Reason Provider Source Mar 05, 2024 10:00 AM Outpatient Encounter PRIMARY CARE/MEDICINE STACY COOPER Marc Encounter Template Text not used by [place] [...] 2024 10:00 AM [facility] Active, Pending, and Scheduled Orders This section includes a listing of several types of active, pending, and scheduled orders, including clinic medications orders, diagnostic test orders, procedure orders and consult orders; where the start date of the order is 45 days before the date of the Encounter or 45 days after the date of theEncounter. The data comes from all [place] treatment facilities. Test Date/Time Test Type Test Details Facility Name Jan 25, 2024 08:56 AM Consult Order COMMUNITY CARE-DENTAL SPECIALTY Cons Product Sales Representative's Choice [facility] Mar 05, 2024 12:09 PM Consult Order COMMUNITY [facility]-COLONOSCOPY SCREENING WITH EGD [facility] Product Sales Representative's Choice [facility] Mar 05, 2024 12:09 PM Consult Order TELE-EYE S CREENING CONSULT/SPOPC (OUTPT) Cons Product Sales Representative's [facility] Lab Results: +/- 30 days of the encounter This section includes the Chemistry and Hematology Lab Results on record with [place] for the patient. Radiology Reports and Pathology [...] Type: SERUM No comment entered. Ordering Provider: STACY COOPER Report Released Date/Time: Feb 29, 2024 02:28 PM Reporting Lab: [facility] [address] [address] Performing Lab: [facility] [address] [address] CHOLESTEROL 164 mg/dL TRIGLYCERIDE 114 mg/dL 0-150 LDL calculated 89 mg/dL 0-129 CHOL/HDL 3.2 HDL CHOLESTEROL 52 mg/dL 40-60 Mar 01, 2024 09:24 AM [facility] LIVER FUNCTION Specimen Type: SERUM No comment entered. Ordering Provider: STACY COOPER Report Released Date/Time: Feb 29, 2024 02:28 PM Reporting Lab: [facility] [address] [address] Performing Lab: [address] [address] PROTEIN,TOTAL 7.9 g/dL 6.0-8.3 ALBUMIN 4.0 g/dL 3.5-5.0 ALKALINE PHOSPHATASE 90 U/L 40-150 AST 13 U/L 5-34 ALT 11 U/L BILIRUBIN, TOTAL 0.6 mg/dL 0.2-1.2 Mar 01, 2024 09:24 AM [facility] BASIC METABOLIC PANEL (fasting) Specimen Type: SERUM No comment entered. Ordering Provider: STACY COOPER Report Released Date/Time: Feb 29, 2024 02:28 PM Reporting Lab: [facility] [address] [address] Performing Lab: [address] [address] UREA NITROGEN 10 mg/dL 7-25 GLUCOSE 105 [...] 9.27. Ref: http://www.ngs p.org/CAPdata. asp Ordering Provider: STACY COOPER Report Released Date/Time: Feb 29, 2024 02:28 PM Reporting Lab: [address] [address] Performing Lab: [address] [address] HEMOGLOBIN A1C 5.5 4.0-5.6 Mar 01, 2024 09:24 AM [facility] TSH Specimen Type: SERUM No comment entered. Ordering Provider: STACY COOPER Report Released Date/Time: Feb 29, 2024 02:28 PM Reporting Lab: [address] [address] Performing Lab: [address] [address] TSH 1.80 u[IU]/mL 0.35-5.00 Mar 01, 2024 09:24 AM [facility] MICROALBUMIN CREATININE RATIO PANEL Specimen Type: URINE No comment entered. Ordering Provider: STACY COOPER Report Released Date/Time: Feb 29, 2024 02:28 PM Reporting Lab: [facility] [address] [facility] [address] Performing Lab: [facility] [address] [address] MICROALBUMIN/C REATININE RATIO 361.0 mg/g H 0-29.9 MICROALBUMIN,Q UANTITATIVE 25.8 mg/dL RR UNAVAIL CREATININE URINE 71.47 mg/dL Mar 01, 2024 09:24 AM [facility] CBC AND DIFF (AUTO) Specimen Type: BLOOD No comment entered. Ordering Provider: STACY COOPER Report Released Date/Time: Feb 29, 2024 02:28 PM Reporting Lab: [facility] [address] [facility] [address] Performing Lab: [address] [address] WBC 15.13 10*3/uL H 4.50-11.00 RBC 5.01 [...] 10*3/uL 0.00-0.00 Mar 01, 2024 09:24 AM [facility] MICROSCOPIC AUTOMATED, URINE Specimen Type: URINE Comment: If Glucose = >500 and Ketones are positive, please alert the Physician. Ordering Provider: STACY COOPER Report Released Date/Time: Feb 29, 2024 02:28 PM Reporting Lab: [address] [address] Performing Lab: [address] [address] UA WBC 6-10 /[HPF] H 0-5 UA BACTERIA 1+ /[HPF] NoneObs UA MUCUS FEW /[LPF] Trace UA RBC 3-5 /[HPF] 0-3 UA WBC CLUMPS PRESENT /[HPF] None Mar 01, 2024 09:24 AM [facility] URINALYSIS Specimen Type: URINE Comment: If Glucose = >500 and Ketones are positive, please alert the Physician. Ordering Provider: STACY COOPER Report Released Date/Time: Feb 29, 2024 02:28 PM Reporting Lab: [address] [address] Performing Lab: [address] [address] UA COLOR Light-Yellow Yellow UA APPEARANCE Turbid Clear UA GLUCOSE Normal mg/dL Negative UA KETONES NEGATIVE mg/dL Negative UA BLOOD NEGATIVE mg/dL Negative UA PROTEIN 50 mg/dL Negative UA NITRITE POSITIVE mg/dL Negative UA BILIRUBIN NEGATIVE mg/dL Negative UA SPECIFIC GRAVITY 1.011 L 1.016-1.02 2 UA pH 7.0 5.0-9.0 UA UROBILINOGEN Normal mg/dL <2.0 UA LEUKOCYTE NEGATIVE Negative Vital Signs: All taken on the encounter date This section contains inpatient and outpatient Vital Signs collected on the date of the Encounter. Date/Time Temperature Pulse Blood Pressure Respiratory Rate SP02 Pain Height Weight Body Mass Index Source Mar 05, 2024 10:09 AM 74 156/79 97 154 25 [facility] IE Social History: Smoking Status (Most current) [...] Date/Time Current Smoking Status Comment Facil ity Mar 05, 2024 10:00 AM VA-TOBACCO USE EVERY DAY CIGARET [facility] Tobacco Use History This section includes a history of the smoking, or tobacco-related health factors, that were collected on or before the date of the Encounter. The data comes from the [place] facility where the Encounter took place. Date/Time Smoking Status/Tobacco Use Comment F acility Mar 05, 2024 10:00 AM VA-TOBACCO USE MAG RY DAY CIGARETTES [facility] Sep 29, 2020 10:30 AM VA-TOBACCO DOESNT USE WI [address] [facility] Sep 29, 2020 10:30 AM VA-TOBACCO USE 30 YEARS OR MORE [facility] Sep 29, 2020 10:30 AM VA-TOBACCO USE ADVICE [facility] Sep 29, 2020 10:30 AM VA-TOBACCO USE TRAFFIC SIGNAL REPAIRER NO [facility] Sep 29, 2020 10:30 AM VA-TOBACCO USE MED NO [facility] Sep 29, 2020 10:30 AM VA-TOBACCO USER EVERY DAY [facility] Feb 20, 2019 11:59 AM VA-TOBACCO DOESNT USE WI 30 MIN [place] [facility] Feb 20, 2019 11:59 AM VA-TOBACCO USE 30 YEARS OR MORE [facility] Feb 20, 2019 11:59 AM VA-TOBACCO USE ADVICE [facility] Feb 20, 2019 11:59 AM VA-TOBACCO USE TRAFFIC SIGNAL REPAIRER NO [facility] Feb 20, 2019 11:59 AM VA-TOBACCO USE MED NO [facility] Feb 20, 2019 11:59 AM VA-TOBACCO USER EVERY DAY [facility] Feb 13, 2018 09:33 AM VA-TOBACCO DOESNT USE WI 30 MIN [place] [facility] Feb 13, 2018 09:33 AM VA-TOBACCO USE 30 YEARS OR MORE [facility] Feb 13, 2018 09:33 AM VA-TOBACCO USE ADVICE [facility] Feb 13, 2018 09:33 AM VA-TOBACCO USE TRAFFIC SIGNAL REPAIRER NO [facility] Feb 13, 2018 09:33 AM VA-TOBACCO USE MED NO [facility] Feb 13, 2018 09:33 AM VA-TOBACCO USER EVERY DAY [facility] Feb 09, 2017 09:29 AM QUIT TOBACCO USE 1 -7 YEARS AGO [facility] Feb 09, 2016 03:04 PM QUIT TOBACCO USE 1 -7 YEARS AGO 1 and half packed a day but currently using E Cig. [facility] Dec 11, 2014 10:52 AM QUIT TOBACCO USE 1 -7 YEARS AGO [facility] Jan 24, 2013 09:31 AM V1-PT DECLINES REF TO TOBACCO CESS PRGM [facility] Jan 24, 2013 09:31 AM V1-PT DECLINES TOB ACCO CESSATION MEDS [facility] Jan 24, 2013 09:31 AM V1-PT NOT INTEREST ED IN QUIT TOBACCO USE [facility] Oct 24, 2012 12:49 PM CURRENT SMOKER one in a half to two packs per day [facility] Encounter Notes: All associated encounter notes This section contains the clinical notes associated to the Encounter. Date/Time Encounter Note(s) Provider Source Mar 05, 2024 10:05 AM PREVENTIVE MEDICIN E NURSING NOTE: LOCAL TITLE: CLINICAL REMINDERS/NURSING STANDARD TITLE: PREVENTIVE MEDICINE NURSING NOTE DATE OF NOTE: MAR 05, 2024@10:05 ENTRY DATE: MAR 05, 2024@10:05:45 AUTHOR: SIDDHARTHA DICKEY COSIGNER: URGENCY: STATUS: COMPLETED Advance Directive Screen MH AD: Patient does not have a completed advance directive on file at any facility, [facility] or outside. S/he is not interested in completing one at this time. The patient received education about Advance Directives and written notification of his/her rights. 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 Printed information was offered and provided if desired. No questions at this time /caregiver was informed of local points of contact. Contact information for local resources: Benefits/Claim for Disability Compensation Questions:National [place] Healthcare Enrollment: [facility] Eligibility direct dialed at [phone] Registry: [facility] Coordinator ext [phone] Toxic Exposure Screening Follow-Up reminder is needed. Name of person notified: Stacy Cooper NP Homelessness/Food Insecurity Screen: In the past 2 months, have you been living in stable housing that you own, rent, or stay in as part of a household? Yes - Living in stable housing. Are you worried or concerned that in the next 2 months you may NOT have stable housing that you own, rent, or stay in as part of a household? No - Not worried about housing near future The [place] reports the following: Within the past 12 months, you worried whether your food would run out before you got money to buy more. Never true Within the past 12 months, the food you bought just didn't last and you didn't have money to get more. Never true Follow Up Colonoscopy: Colonoscopy is due based on information available to this reminder. Colonoscopy consult has been ordered. See orders tab for details. Falls & Incontinence Screen: Falls Screen: During the past 12 months, did the patient report any falls? 4. No falls within the past year. Incontinence Screen: During the past 12 months, has the patient has any characteristics of incontinence (ability, voiding, leakage, etc.)? No incontinence. Tobacco Use Screening: The patient smokes cigarettes every day. The patient has never used other types of tobacco. Influenza Immunization: Deferral / Refusal The patient declines to receive the recommended dose of seasonal influenza vaccine. Immunization: INFLUENZA, UNSPECIFIED FORMULATION Refusal Reason: PATIENT DECISION Patient refuses all immunization(s) in the FLU group Date Documented: 03/05/24 10:06 Sexual Orientation: The patient thinks of their sexual orientation as: Straight or Heterosexual Eye Care At-Risk Screen : Patient identified to be at risk for the following eye condition(s): MACULAR DEGENERATION: Macular Degeneration Risk Factors Information: Reminder Term: VA-AMD RISK FACTORS Encounter Diagnosis: 12/26/2023@10:55 Z72.0 (ICD-10-CM) Tobacco use rank: SECONDARY Prov. Narr. - Tobacco use Action: Referral Ordered: Tele-Eye Screening /es/ SIDDHARTHA DICKEY LPN Licensed Practical Nurse Signed: 03/05/2024 10:08 SIDDHARTHA DICKEY [facility]
--- OUTSIDE RECORDS SUMMARY | 2024-03-09 11:13 | XMS_ITS | Encounter Summary ---
Author Name [facility] [place] Address [address] [place] [address] Care Team Providers Care Health Records Technology Teacher Name Role Phone MARICRUZ BARBOSA Primary Care [...] Patient's Relationship to Policy Gudino JONATHAN [facility] FEDERAL PREFERRED PROVIDER ORGANIZAT ION (PPO) BASIC SELF Mar 22, 2009 [id number] KT RODAS PATIENT BCBS [facility] PREFERRED PROVIDER ORGANIZAT ION (PPO) BASIC INDIV IDUAL Mar 22, 2009 111 [id number] KT RODAS PATIENT [employer] FEPRX PLAN PRESCRIPT ION CAREM ARK FEPRX Mar 21, 2010 [id number] KT RODAS PATIENT MEDICARE (WNR) MEDICARE (M) PART B Dec 19, 2012 PART B [id number] KT RODAS PATIENT MEDICARE (WNR) MEDICARE (M) PART B Dec 19, 2012 PART B [id number] KT RODAS PATIENT MEDICARE (WNR) MEDICARE (M) PART B Dec 19, 2012 PART B [id number] [phone] KT RODAS PATIENT MEDICARE (WNR) MEDICARE (M) PART B Dec 19, 2012 PART B [id number] [phone] KT RODAS PATIENT MEDICARE (WNR) MEDICARE (M) PART A Nov 19, 2012 PART A [id number] KT RODAS PATIENT MEDICARE (WNR) MEDICARE (M) PART A Nov 19, 2012 PART A [id number] KT RODAS PATIENT MEDICARE (WNR) MEDICARE (M) PART A Nov 19, 2012 PART A [id number] KT RODAS PATIENT MEDICARE (WNR) MEDICARE (M) PART A Nov 19, 2012 PART A [id number] AD83 KT RODAS PATIENT Selected Encounter This section includes the information on record at [place] for the Encounter. Date/Time Encounter Type Encounter Description Reason Pro vider Source Jan 19, 2024 12:00 AM Outpatient Encounter COMMUNITY CARE CONSULT IHE Encounter Template Text not used by [place] Plan of Treatment: Future Appointments (+ 6 months) and Future Tests (+/- 45 days) The Plan of Treatment section includes future care activities for the patient from all [place] treatmentfacilities. This section includes future appointments and future orders which are active, pending or scheduled. Future Appointments This section includes appointments that were scheduled to occur 6 months from the date of the Encounter, up to a maximum of 20 appointments. The data comes from all [place] treatment facilities. Appointment Date/Time Appointment Type Appointme nt Facility Name Feb 23, 2024 09:30 AM AMBULATORY - MEDICINE [place] [facility] Mar 05, 2024 10:00 AM AMBULATORY [...] of theEncounter. The data comes from all [place] treatment facilities. Test Date/Time Test Type Test Details Facility Name Jan 25, 2024 08:56 AM Consult Order COMMUNITY CARE-DENTAL SPECIALTY Cons Field Inspector's Choice [facility] Social History: Smoking Status (Most current) and Tobacco Use (All prior to encounter date) This section includes the most current, and the historical, smoking and tobacco- related health factors from the [place] facility where the Encounter took place. Current Smoking Status This section includes the most current smoking, or tobacco-related health factor, from the [place] facility where the Encounter took place. Date/Time Current Smoking Status Comment Facil ity Oct 21, 2022 10:25 AM VA-TOBACCO [facility] Tobacco Use History This section includes a history of the smoking, or tobacco-related health factors, that were collected on or before the date of the Encounter. The data comes from the [place] facility where the Encounter took place. 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 The data comes from all [place] treatment facilities. Date/Time Radiology Report Provider Source Dec 26, 2023 10:55 AM LDCT LUNG CANCER SCREENING: LARRY RODAS [id number] -[id number] M Exm Date: DEC 26, 2023@10:55 Req Phys: QUETA LARKIN Em Loc: ZZCWM/NO/LCS ADMIN (Req'g Loc) Img Loc: NHM/CT Service: Unknown [place] [address] (Case 87 COMPLETE) LDCT LUNG CANCER SCREENING (CT Detailed) CPT:31547 Reason for Study: Lung Cancer Screening Clinical History: 56 TPY Currently smoking Comparison: CT scan of the chest from 12/23/2022, December 23, 2021, December 22, 2020, December 17, 2019, December 13, 2018 and November 07, 2017. Report Status: Verified Date Reported: DEC 26, 2023 Date Verified: DEC 26, 2023 Chiropractic Practice Manager E-Sig:/ES/KATH PURDY JR Report: Study: Lung cancer [...] reviewed. Secondary computer-aided detection with post-processing from [employer] is used. The lack of intravenous contrast [...] Primary Interpreting Staff: KATH PURDY JR, Radiologist (Chiropractic Practice Manager) /KATH GASPAR JR [facility] Encounter Notes: All associated encounter notes This section contains the clinical notes associated to the Encounter. Date/Time Encounter Note(s) Provider Source Jan 19, 2024 12:00 AM NONVA CONSULT: LOCAL TITLE: COMMUNITY CARE-CONSULT RESULT NOTE STANDARD TITLE: NONVA CONSULT DATE OF NOTE: JAN 19, 2024 ENTRY DATE: FEB 11, 2024@16:08:13 AUTHOR: JAYLA PRYOR EXP COSIGNER: URGENCY: STATUS: COMPLETED VistA Imaging - Scanned Document SCANNED DOCUMENT SIGNATURE NOT REQUIRED Electronically Filed: 02/11/2024 by: JAYLA CACERES [facility]
--- OUTSIDE RECORDS SUMMARY | 2024-03-09 11:13 | XMS_ITS | Encounter Summary ---
Author Name [facility] [place] Address [address] [place] [address] Care Team Providers Care Depot Manager Name Role Phone MARICRUZ BARBOSA Primary Care [...] Name Patient's Relationship to Policy Gudino JONATHAN [facility] FEDERAL PREFERRED PROVIDER ORGANIZAT ION (PPO) BASIC SELF Mar 22, 2009 111 [id number] KT RODAS PATIENT BCBS [facility] PREFERRED PROVIDER ORGANIZAT ION (PPO) BASIC INDIV IDUAL Mar 22, 2009 111 [id number] KT RODAS PATIENT [employer] FEPRX PLAN PRESCRIPT ION CAREM ARK FEPRX Mar 21, 2010 [id number] KT RODAS PATIENT MEDICARE (WNR) MEDICARE (M) PART B Dec 19, 2012 PART B [id number] KT RODAS PATIENT MEDICARE (WNR) MEDICARE (M) PART B Dec 19, 2012 PART B [id number] [phone] KT RODAS PATIENT MEDICARE (WNR) MEDICARE (M) PART B Dec 19, 2012 PART B [id number] KT RODAS PATIENT MEDICARE (WNR) MEDICARE (M) PART B Dec 19, 2012 PART B [id number] KT RODAS PATIENT MEDICARE (WNR) MEDICARE (M) PART A Nov 19, 2012 PART A [id number] [phone] KT RODAS PATIENT MEDICARE (WNR) MEDICARE (M) PART A Nov 19, 2012 PART A [id number] KT RODAS PATIENT MEDICARE (WNR) MEDICARE (M) PART A Nov 19, 2012 PART A [id number] KT RODAS PATIENT MEDICARE (WNR) MEDICARE (M) PART A Nov 19, 2012 PART A [id number] KT RODAS PATIENT Selected Encounter This section includes the information on record at [place] for the Encounter. Date/Time Encounter Type Encounter Description Reason Pro vider Source Mar 05, 2024 10:00 AM Outpatient Encounter EVENT (HISTORICAL) IHE Encounter [...] AM Consult Order COMMUNITY CARE-DENTAL SPECIALTY Cons Jailkeeper's Choice [facility] [place] [facility] Mar 05, 2024 12:09 PM Consult Order [facility]-COLONOSCOPY SCREENING WITH EGD [facility] Jailkeeper[facility] Mar 05, 2024 12:09 PM Consult Order TELE-EYE S CREENING CONSULT/SPOPC (OUTPT) Cons Jailkeeper's [facility] Lab Results: +/- 30 days of [...] Range Comment Mar 01, 2024 09:24 AM [facility] LIPID PANEL FASTING Specimen Type: SERUM No comment entered. Ordering Provider: MARICRUZ BARBOSA Report Released Date/Time: Feb 29, 2024 02:28 PM Reporting Lab: [facility] [address] [address] Performing Lab: [facility] [address] [address] CHOLESTEROL 164 mg/dL TRIGLYCERIDE 114 mg/dL 0-150 LDL calculated 89 mg/dL 0-129 CHOL/HDL 3.2 HDL CHOLESTEROL 52 mg/dL 40-60 Mar 01, 2024 09:24 AM [facility] LIVER FUNCTION Specimen Type: SERUM No comment entered. Ordering Provider: MARICRUZ BARBOSA Report Released Date/Time: Feb 29, 2024 02:28 PM Reporting Lab: [facility] [address] [address] Performing Lab: [facility] [address] [address] PROTEIN,TOTAL 7.9 g/dL 6.0-8.3 ALBUMIN 4.0 g/dL 3.5-5.0 ALKALINE PHOSPHATASE 90 U/L 40-150 AST 13 U/L 5-34 ALT 11 U/L BILIRUBIN, TOTAL 0.6 mg/dL 0.2-1.2 Mar 01, 2024 09:24 AM [facility] BASIC METABOLIC PANEL (fasting) Specimen Type: SERUM No comment entered. Ordering Provider: MARICRUZ BARBOSA Report Released Date/Time: Feb 29, 2024 02:28 PM Reporting Lab: [facility] [address] [address] Performing Lab: [address] [address] UREA NITROGEN 10 mg/dL 7-25 GLUCOSE 105 mg/dL H 65-100 SODIUM 137 mmol/L 135-145 POTASSIUM 4.6 mmol/L 3.5-5.0 CHLORIDE 103 mmol/L 100-110 CO2 24 meq/L 20-30 CREATININE, Serum 0.92 mg/dL 0.50-1.40 eGFR(CKD-EPI 2020) 86 mL/min >60 Mar 01, 2024 09:24 AM [facility] HEMOGLOBIN A1C PANEL Specimen Type: BLOOD [...] Feb 29, 2024 02:28 PM Reporting Lab: [address] [address] Performing Lab: [address] [address] HEMOGLOBIN A1C 5.5 4.0-5.6 Mar 01, 2024 09:24 AM [facility] TSH Specimen Type: SERUM No comment entered. Ordering Provider: MARICRUZ BARBOSA Report Released Date/Time: Feb 29, 2024 02:28 PM Reporting Lab: [address] [address] Performing Lab: [address] [address] TSH 1.80 u[IU]/mL 0.35-5.00 Mar 01, 2024 09:24 AM [facility] MICROALBUMIN CREATININE RATIO PANEL Specimen Type: URINE No comment entered. Ordering Provider: MARICRUZ BARBOSA Report Released Date/Time: Feb 29, 2024 02:28 PM Reporting Lab: [facility] [address] [address] Performing Lab: [address] [address] MICROALBUMIN/C REATININE RATIO 361.0 mg/g H 0-29.9 MICROALBUMIN,Q UANTITATIVE 25.8 mg/dL RR UNAVAIL CREATININE URINE 71.47 mg/dL Mar 01, 2024 09:24 AM [facility] MICROSCOPIC AUTOMATED, URINE Specimen Type: URINE Comment: If Glucose = >500 and Ketones are positive, please alert the Physician. Ordering Provider: MARICRUZ BARBOSA Report Released Date/Time: Feb 29, 2024 02:28 PM Reporting Lab: [address] [address] Performing Lab: [address] [address] UA WBC 6-10 /[HPF] H 0-5 UA BACTERIA 1+ /[HPF] NoneObs UA MUCUS FEW /[LPF] Trace UA RBC 3-5 /[HPF] 0-3 UA WBC CLUMPS PRESENT /[HPF] None Mar 01, 2024 09:24 AM [facility] CBC AND DIFF (AUTO) Specimen Type: BLOOD No comment entered. Ordering Provider: MARICRUZ BARBOSA Report Released Date/Time: Feb 29, 2024 02:28 PM Reporting Lab: [address] [address] Performing Lab: [address] [address] WBC 15.13 10*3/uL H 4.50-11.00 RBC 5.01 [...] 10*3/uL 0.00-0.00 Mar 01, 2024 09:24 AM [facility] URINALYSIS Specimen Type: URINE Comment: If Glucose = >500 and Ketones are positive, please alert the Physician. Ordering Provider: MARICRUZ BARBOSA Report Released Date/Time: Feb 29, 2024 02:28 PM Reporting Lab: [address] [address] Performing Lab: [address] [address] UA COLOR Light-Yellow Yellow UA APPEARANCE Turbid [...] QUIT 5 TO < 15 YRS [place] CNT [facility] Tobacco Use History This section includes a history of the smoking, or tobacco-related health factors, that were collected on or before the date of the Encounter. The data comes from the [place] facility where the Encounter took place. 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
--- OUTSIDE RECORDS SUMMARY | 2024-03-09 11:13 | XMS_ITS | Encounter Summary ---
Author Name [facility] [place] Address [address] [place] [address] Care Team Providers Care Hospital Laboratory Technician Name Role Phone MARICRUZ BARBOSA Primary [...] Name Patient's Relationship to Policy Gudino JONATHAN [facility] FEDERAL PREFERRED PROVIDER ORGANIZAT ION (PPO) BASIC SELF Mar 22, 2009 111 [id number] KT RODAS PATIENT BCBS [facility] PREFERRED PROVIDER ORGANIZAT ION (PPO) BASIC INDIV IDUAL Mar 22, 2009 [id number] KT RODAS PATIENT [employer] FEPRX PLAN PRESCRIPT ION CAREM ARK FEPRX Mar 21, 2010 [id number] KT RODAS PATIENT MEDICARE (WNR) MEDICARE (M) PART B Dec 19, 2012 PART B [id number] KT RODAS PATIENT MEDICARE (WNR) MEDICARE (M) PART B Dec 19, 2012 PART B [id number] KT RODAS PATIENT MEDICARE (WNR) MEDICARE (M) PART B Dec 19, 2012 PART B [id number] KT RODAS PATIENT MEDICARE (WNR) MEDICARE (M) PART B Dec 19, 2012 PART B [id number] [phone] KT RODAS PATIENT MEDICARE (WNR) MEDICARE (M) PART A Nov 19, 2012 PART A [id number] KT RODAS PATIENT MEDICARE (WNR) MEDICARE (M) PART A Nov 19, 2012 PART A [id number] KT RODAS PATIENT MEDICARE (WNR) MEDICARE (M) PART A Nov 19, 2012 PART A [id number] KT RODAS PATIENT MEDICARE (WNR) MEDICARE (M) PART A Nov 19, 2012 PART A [id number] [phone] KT RODAS PATIENT Selected Encounter This section includes the information on record at [place] for the Encounter. Date/Time Encounter Type Encounter Description Reason Pro vider Source Dec 26, 2023 12:00 AM Outpatient Encounter EVENT (HISTORICAL) IHE Encounter Template Text not used by [place] Plan of Treatment: Future Appointments (+ 6 months) and Future Tests (+/- 45 days) The Plan of Treatment section includes future care activities for the patient from all [place] treatmentfacilities. This section includes future appointments and future orders which are active, pending or scheduled. Future Appointments This section includes appointments that were scheduled to occur 6 months from the date of the Encounter, up to a maximum of 20 appointments. The data comes from all [place] treatment facilities. Appointment Date/Time Appointment Type Appointme nt Facility Name Jan 19, 2024 03:00 PM AMBULATORY - MEDICINE [facility] [place] [facility] Feb 23, 2024 09:[address] [facility] [place] [facility] Mar 05, 2024 10:00 AM AMBULATORY [...] of theEncounter. The data comes from all [place] treatment facilities. Test Date/Time Test Type Test Details Facility Name Jan 25, 2024 08:56 AM Consult Order COMMUNITY CARE-DENTAL SPECIALTY Cons Flat Machine Cutter's Choice [facility] [place] [facility] Social History: Smoking Status (Most current) and Tobacco Use (All prior to encounter date) This section includes the most current, and the historical, smoking and tobacco- related health factors from the [place] facility where the Encounter took place. Current Smoking Status This section includes the most current smoking, or tobacco-related health factor, from the [place] facility where the Encounter took place. Date/Time Current Smoking Status Comment Facil ity Oct 21, 2022 10:25 AM [place]-TOBACCO QUIT 5 TO < [address] [facility] Tobacco Use History This section includes a history of the smoking, or tobacco-related health factors, that were collected on or before the date of the Encounter. The data comes from the [place] facility where the Encounter took place. 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 Radiology Reports: +/- 30 days of [...] the Encounter. The data comes from all [place] treatment facilities. Date/Time Radiology Report Provider Source Dec 26, 2023 10:55 AM LDCT LUNG CANCER SCREENING: LARRY RODAS [id number] -1945 M Exm Date: DEC 26, 2023@10:55 Req Phys: QUETA LARKIN Loc: ZZCWM/NO/LCS ADMIN (Req'g Loc) Img Loc: NHM/CT Service: Unknown [place] [address] (Case 87 COMPLETE) LDCT LUNG CANCER SCREENING (CT Detailed) CPT:19904 Reason for Study: Lung Cancer Screening Clinical History: 56 TPY Currently smoking Comparison: CT scan of the chest from 12/23/2022, December 23, 2021, December 22, 2020, December 17, 2019, December 13, 2018 and November 07, 2017. Report Status: Verified Date Reported: DEC 26, 2023 Date Verified: DEC 26, 2023 Machine Chain Maker E-Sig:/ES/KATH PURDY JR Report: Study: Lung cancer [...] reviewed. Secondary computer-aided detection with post-processing from [employer] is used. The lack of intravenous contrast [...] Primary Interpreting Staff: KATH PURDY JR, Radiologist (Machine Chain Maker) /KATH GASPAR JR [facility]
--- OUTSIDE RECORDS SUMMARY | 2024-03-09 11:13 | XMS_ITS | Encounter Summary ---
Author Name [facility] [place] [facility] [place] Address [address] [place] [address] Care Team Providers Care Dental Ceramist Name Role Phone MARICRUZ BARBOSA Primary Care [...] Name Patient's Relationship to Policy Gudino JONATHAN BCNANDA CT FEDERAL PREFERRED PROVIDER ORGANIZAT ION (PPO) BASIC SELF Mar 22, 2009 [id number] KT BRIONES PATIENT [place] F[place] PREFERRED PROVIDER ORGANIZAT ION (PPO) BASIC INDIV IDUAL Mar 22, 2009 111 [id number] KT BRIONES PATIENT [employer] FEPRX PLAN PRESCRIPT ION CAREM ARK FEPRX Mar 21, 2010 [id number] KT BRIONES PATIENT MEDICARE (WNR) MEDICARE (M) PART B Dec 19, 2012 PART B [id number] KT BRIONES PATIENT MEDICARE (WNR) MEDICARE (M) PART B Dec 19, 2012 PART B [id number] KT BRIONES PATIENT MEDICARE (WNR) MEDICARE (M) PART B Dec 19, 2012 PART B [id number] [phone] KT BRIONES PATIENT MEDICARE (WNR) MEDICARE (M) PART B Dec 19, 2012 PART B [id number] KT BRIONES PATIENT MEDICARE (WNR) MEDICARE (M) PART A Nov 19, 2012 PART A [id number] KT BRIONES PATIENT MEDICARE (WNR) MEDICARE (M) PART A Nov 19, 2012 PART A [id number] [phone] KT BRIONES PATIENT MEDICARE (WNR) MEDICARE (M) PART A Nov 19, 2012 PART A [id number] KT BRIONES PATIENT MEDICARE (WNR) MEDICARE (M) PART A Nov 19, 2012 PART A [id number] KT BRIONES PATIENT Selected Encounter This section includes the information on record at [place] for the Encounter. Date/Time Encounter Type Encounter Description Reason Provider Source Dec 26, 2023 02:35 PM QNHP OL DIG ASSMT&MGMT 5-10 PULMONARY/CHEST ICD-10-CM Z12.2 Encntr screen for malignant neoplasm of respiratory organs NORMA LORENZO CCA IHE Encounter Template Text not used by [place] Assessments - Encounter Diagnoses This section includes the primary and secondary diagnoses documented for the Encounter. Date/Time Primary/Secondary Diagnosis Diagnosis Name Provider Source Dec 26, 2023 02:50 PM PRIMARY Encntr screen for malignant neoplasm of respiratory organs NORMA LORENZO CCA [place] [facility] [place] [facility] Plan of Treatment: Future Appointments (+ 6 months) and Future Tests (+/- 45 days) The Plan of Treatment section includes future care activities for the patient from all [place] treatmentfacilities. This section includes future appointments and future orders which are active, pending or scheduled. Future Appointments This section includes appointments that were scheduled to occur 6 months from the date of the Encounter, up to a maximum of 20 appointments. The data comes from all [place] treatment facilities. Appointment Date/Time Appointment Type Appointme nt Facility Name Jan 19, 2024 03:00 PM AMBULATORY - MEDICINE [place] [facility] [place] [facility] Feb 23, 2024 09:30 AM AMBULATORY - MEDICINE [place] [facility] [place] [facility] Mar 05, 2024 10:00 AM [facility] Active, Pending, and Scheduled Orders This section includes a listing of several types of active, pending, and scheduled orders, including clinic medications orders, diagnostic test orders, procedure orders and consult orders; where the start date of the order is 45 days before the date of the Encounter or 45 days after the date of theEncounter. The data comes from all [place] treatment facilities. Test Date/Time Test Type Test Details Facility Name Jan 25, 2024 08:56 AM Consult Order COMMUNITY CARE-DENTAL SPECIALTY Cons Survey [facility] Social History: Smoking Status (Most current) and Tobacco Use (All prior to encounter date) This section includes the most current, and the historical, smoking and tobacco- related health factors from the [place] facility where the Encounter took place. Current Smoking Status This section includes the most current smoking, or tobacco-related health factor, from the [place] facility where the Encounter took place. Date/Time Current Smoking Status Comment Facil ity Oct 21, 2022 10:25 AM MT-TOBACCO QUIT 5 TO < 15 YRS [facility] Tobacco Use History This section includes a history of the smoking, or tobacco-related health factors, that were collected on or before the date of the Encounter. The data comes from the [place] facility where the Encounter took place. Date/Time Smoking Status/Tobacco Use Comment F acility Oct 21, 2022 10:25 AM MT-TOBACCO QUIT 5 TO < 15 YRS [facility] [place] [facility] Oct 01, 2021 09:59 AM VA-TOBACCO DOESNT USE WI 30 MIN [facility] [place] [facility] Oct 01, 2021 09:59 AM VA-TOBACCO USE 30 YEARS OR MORE [facility] Oct 01, 2021 09:59 AM VA-TOBACCO USE ADVICE [facility] Oct 01, 2021 09:59 AM VA-[facility]ACCO [facility] Oct 01, 2021 09:59 AM VA-TOBACCO USE MED NO [facility] Oct 01, 2021 09:59 AM MT-TOBACCO USER EVERY DAY [facility] Radiology Reports: +/- 30 days of [...] the Encounter. The data comes from all [place] treatment facilities. Date/Time Radiology Report Provider Source Dec 26, 2023 10:55 AM LDCT LUNG CANCER SCREENING: CLARKLARRY MIRZA [id number] M Exm Date: DEC 26, 2023@10:55 Req Phys: QUETA LARKIN Loc: ZZCWM/NO/LCS ADMIN (Req'g Loc) Img Loc: [place]/CT Service: [place] [address] (Case 87 COMPLETE) LDCT LUNG CANCER SCREENING (CT Detailed) CPT:60233 Reason for Study: Lung Cancer Screening Clinical History: 56 TPY Currently smoking Comparison: CT scan of the chest from 12/23/2022, December 23, 2021, December 22, 2020, December 17, 2019, December 13, 2018 and November 07, 2017. Report Status: Verified Date Reported: DEC 26, 2023 Date Verified: DEC 26, 2023 Sack Cleaning Hand E-Sig:/ES/KATH PURDY JR Report: Study: Lung cancer [...] reviewed. Secondary computer-aided detection with post-processing from [employer] is used. The lack of intravenous contrast [...] Primary Interpreting Staff: KATH PURDY JR, Radiologist (Sack Cleaning Hand) /KATH GASPAR JR [facility] [place] [facility] Encounter Notes: All associated encounter notes This section contains the clinical notes associated to the Encounter. Date/Time Encounter Note(s) Provider Source Dec 26, 2023 02:51 PM PREVENTIVE MEDICINE RISK ASSESSMENT SCREENING NOTE: LOCAL TITLE: LUNG CANCER SCREENING DOCUMENTATION STANDARD TITLE: PREVENTIVE MEDICINE RISK ASSESSMENT SCREENING NO DATE OF NOTE: DEC 26, 2023@14:51 ENTRY DATE: DEC 26, 2023@14:51:12 AUTHOR: KHURRAM LORENZO COSIGNER: URGENCY: STATUS: COMPLETED Dec Dear Mr. Briones: Your recent lung cancer screening CT scan found a small lung nodule. Most nodules are not lung cancer, but a few can grow into lung cancer. As mentioned in the enclosed brochure, nodules are often caused by scar tissue, a healed infection, or some other irritant found in the air we breathe. Nodules are detected in up to half of screening CT scans, but very few nodules out patient therapist to be cancer. In general, more than 95 out of 100 nodules found on lung cancer screening CT scans are not lung cancer. If there are additional findings, we will alert your primary care team. A copy if the results from your Low-Dose CT scan done on 12/26/2023 are enclosed with this letter. Your next lung cancer screening CT scan is due in 12 months, DECEMBER 2024. Our radiology team will reach out to you 3 months prior to when your exam is due to get you scheduled. You may reach our radiology team M-F between the hours of 8am and 4pm at [phone] for scheduling purposes. If you are experiencing an upper respiratory illness like a cold or the flu, please get your scan 4 weeks after your symptoms have gone away. Lung cancer screening can detect lung cancer, but it does not prevent it. Rarely, a CT scan can miss a small lung cancer. Contact your primary care provider if you develop new symptoms like worsening shortness of breath, change in a cough, or coughing up blood. If you still smoke cigarettes, we can help you quit. We understand that quitting cigarette smoking is difficult, but it is the best way to improve your health. When you want help, let your primary care provider know. You can also call 7-514-TCKD-VET ( ) or visit [employer].smokefree.gov. Please contact us with questions or concerns about lung cancer screening. Sincerely, Khurram Lorenzo BSN, RN, OCN Lung Cancer Screening Nurse Enclosures: brochure entitled, Small Lung Nodules: What You Need to Know /sunni/ KHURRAM LORENZO BSN,RN,OCN LUNG CANCER SCREENING NURSE NAVIGATOR Signed: 12/26/2023 14:52 KHURRAM LORENZO [place] [facility] [place] Dec 26, 2023 02:35 PM PREVENTIVE MEDICINE RISK ASSESSMENT SCREENING NOTE: LOCAL TITLE: LUNG CANCER SCREENING DOCUMENTATION STANDARD TITLE: PREVENTIVE MEDICINE RISK ASSESSMENT SCREENING NO DATE OF NOTE: DEC 26, 2023@14:35 ENTRY DATE: DEC 26, 2023@14:36:14 AUTHOR: KHURRAM LORENZO EXP COSIGNER: URGENCY: STATUS: COMPLETED NO LUNG NODULES or TRACKING OF NODULE NOT INDICATED per guidelines (e.g., clearly benign/some small nodules). Date of image: Date: December 26, 2023 LDCT Scan Results: Most recent LDCT scan shows a nodule for which tracking is not indicated per guidelines or radiology report. Comment: Lung Rads 2 Index Nodule: New 3.2 mm solid, irregular left upper lobe pulmonary nodule, 8-121. Other Nodules: Stable 6.4 mm solid, ovoid, slightly irregularly marginated right lower lobe pulmonary nodule, 8-247. Stable 3.1 mm solid, ovoid, well-circumscribed left upper lobe pulmonary nodule, 8-112. Incidental Findings: The following *INCIDENTAL FINDINGS* were noted: Emphysema: Mild centrilobular and paraseptal emphysematous changes with associated scattered parenchymal scarring is unchanged. Visualized coronary artery and aortic calcifications: Atherosclerotic changes of the aorta and coronary arteries. Upper abdomen: Calcified splenic granuloma and right renal simple and separate parapelvic cyst again seen. Stable focal soft tissue nodule with punctate marginal calcification posterior to the right lobe of the liver. Bones and soft tissues: T8 and T12 mild vertebral compression deformities again seen. I am notifying the Primary Care Provider for information, and for follow-up of incidental findings, if indicated. Comment: Dr. Mobley and PACT team via second signer in CPRS Plan: Continue routine annual lung cancer screening. Patient Notification of results: Results letter sent to patient. Comment: Results letter and educational materials mailed to address on file. Patient contacted by telephone. Comment: Call placed to the . Results of LCS LDCT reviewed in detail, specifically the presence of a new NITISH nodule and the continued presence of and interval stability of a RLL 6.4mm and NITISH 3.1mm nodule. Education provided. Importance of and rationale for continued surveillance with LDCT at an annual interval discussed. Kemmerer verbalized good understanding and agreement with this plan. expressed appreciation for the time spent and education provided. Discussed the presence of emphysematous changes and in this context tobacco cessation. Kemmerer offers that while he appreciates the information he is not interested in tobacco cessation at this time. We did discuss the greatest risk reduction does come from cessation. states that he has 4 boxes of NRT patches in his cupboard at home but remains not interested in quitting at this time. is aware that should this change he may reach out to LCS Coordinator or PCP/PACT team for a referral. /sunni/ KHURRAM DIAL,RN,OCN LUNG CANCER SCREENING NURSE NAVIGATOR Signed: 12/26/2023 14:50 Receipt Acknowledged By: 12/27/2023 13:20 /sunni/ YOJANA MACIEL RN- REGISTERED NURSE 01/19/2024 14:27 /sunni/ JULIETA MOBLEY MD PRIMARY CARE PHYSICIAN KHURRAM LORENZO [facility]
--- OUTSIDE RECORDS SUMMARY | 2024-03-09 11:13 | XMS_ITS | Encounter Summary ---
Author Name [facility] [place] Address [address] [place] [address] Care Team Providers Care Cashier Self Service Gasoline Name Role Phone MARICRUZ BARBOSA Primary Care [...] Name Patient's Relationship to Policy Gudino JONATHAN [facility] FEDERAL PREFERRED PROVIDER ORGANIZAT ION (PPO) BASIC SELF Mar 22, 2009 [id number] KT RODAS PATIENT BCBS [facility] PREFERRED PROVIDER ORGANIZAT ION (PPO) BASIC INDIV IDUAL Mar 22, 2009 [id number] KT RODAS PATIENT [employer] FEPRX PLAN PRESCRIPT ION CAREM ARK FEPRX Mar 21, 2010 [id number] KT RODAS PATIENT MEDICARE (WNR) MEDICARE (M) PART B Dec 19, 2012 PART B [id number] KT RODAS PATIENT MEDICARE (WNR) MEDICARE (M) PART B Dec 19, 2012 PART B [id number] KT RODAS PATIENT MEDICARE (WNR) MEDICARE (M) PART B Dec 19, 2012 PART B [id number] [phone] KT RODAS PATIENT MEDICARE (WNR) MEDICARE (M) PART B Dec 19, 2012 PART B [id number] KT RODAS PATIENT MEDICARE (WNR) MEDICARE (M) PART A Nov 19, 2012 PART A [id number] KT RODAS PATIENT MEDICARE (WNR) MEDICARE (M) PART A Nov 19, 2012 PART A [id number] [phone] KT RODAS PATIENT MEDICARE (WNR) MEDICARE (M) PART A Nov 19, 2012 PART A [id number] KT RODAS PATIENT MEDICARE (WNR) MEDICARE (M) PART A Nov 19, 2012 PART A [id number] KT RODAS PATIENT Selected Encounter This section includes the information on record at [place] for the Encounter. Date/Time Encounter Type Encounter Description Reason Pro vider Source Dec 20, 2023 12:00 AM Outpatient Encounter EVENT (HISTORICAL) IHE Encounter Template Text not used by [place] Plan of Treatment: Future Appointments (+ 6 months) and Future Tests (+/- 45 days) The Plan of Treatment section includes future care activities for the patient from all [place] treatmentfacilities. This section includes future appointments and future orders which are active, pending or scheduled. Future Appointments This section includes appointments that were scheduled to occur 6 months from the date of the Encounter, up to a maximum of 20 appointments. The data comes from all [place] treatment facilities. Appointment Date/Time Appointment Type Appointme nt Facility Name Dec 26, 2023 11:00 AM AMBULATORY - NONE [place] [facility] [place] [facility] Jan 19, 2024 03:00 PM AMBULATORY - MEDICINE [place] [facility] [place] [facility] Feb 23, 2024 09:30 AM AMBULATORY - MEDICINE [place] [facility] [place] [facility] Mar 05, 2024 10:00 [...] of theEncounter. The data comes from all [place] treatment facilities. Test Date/Time Test Type Test Details Facility Name Jan 25, 2024 08:56 AM Consult Order COMMUNITY CARE-DENTAL SPECIALTY Cons Game Master's Choice [facility] Social History: Smoking Status (Most current) and Tobacco Use (All prior to encounter date) This section includes the most current, and the historical, smoking and tobacco- related health factors from the [place] facility where the Encounter took place. Current Smoking Status This section includes the most current smoking, or tobacco-related health factor, from the [place] facility where the Encounter took place. Date/Time Current Smoking Status Comment Facil ity Oct 21, 2022 10:25 AM CO-TOBACCO QUIT 5 TO < 15 YRS [facility] Tobacco Use History This section includes a history of the smoking, or tobacco-related health factors, that were collected on or before the date of the Encounter. The data comes from the [place] facility where the Encounter took place. Date/Time Smoking Status/Tobacco Use Comment F acility Oct 21, 2022 10:25 AM CO-TOBACCO QUIT 5 TO < 15 YRS [facility] [place] [facility] Oct 01, 2021 09:59 AM VA-TOBACCO DOESNT USE WI 30 MIN [facility] Oct 01, 2021 09:59 AM VA-TOBACCO USE 30 YEARS OR MORE [facility] [place] [facility] Oct 01, 2021 09:59 AM VA-TOBACCO [facility] [place] [facility] Oct 01, 2021 09:59 AM VA-TOBACCO USE SUPERINTENDENT [employer] NO [facility] [place] [facility] Oct 01, 2021 09:59 AM VA-TOBACCO USE MED NO [facility] [place] [facility] Oct 01, 2021 09:59 AM VA-TOBACCO USER EVERY DAY [facility] Radiology Reports: +/- 30 days [...] the Encounter. The data comes from all [place] treatment facilities. Date/Time Radiology Report Provider Source Dec 26, 2023 10:55 AM LDCT LUNG CANCER SCREENING: LARRY RODAS [id number] -[id number] M Exm Date: DEC 26, 2023@10:55 Req Phys: QUETA LARKIN Loc: ZZCWM/NO/LCS ADMIN (Req'g Loc) Img Loc: [facility]M/CT [facility] [place] [address] (Case 87 COMPLETE) LDCT LUNG CANCER SCREENING (CT Detailed) CPT:68109 Reason for Study: Lung Cancer Screening Clinical History: 56 TPY Currently smoking Comparison: CT scan of the chest from 12/23/2022, December 23, 2021, December 22, 2020, December 17, 2019, December 13, 2018 and November 07, 2017. Report Status: Verified Date Reported: DEC 26, 2023 Date Verified: DEC 26, 2023 Freight Clerk E-Sig:/ES/KATH PURDY JR Report: Study: Lung cancer [...] reviewed. Secondary computer-aided detection with post-processing from [employer] is used. The lack of intravenous contrast [...] Primary Interpreting Staff: KATH PURDY JR, Radiologist (Freight Clerk) /KATH GASPAR JR [facility] Encounter Notes: All associated encounter notes This section contains the clinical notes associated to the Encounter. Date/Time Encounter Note(s) Provider Source Dec 20, 2023 12:00 AM NONVA NOTE: LOCAL TITLE: NON-VA OUTPATIENT NOTES STANDARD TITLE: NONVA NOTE DATE OF NOTE: DEC 20, 2023 ENTRY DATE: JAN 31, 2024@11:22:20 AUTHOR: FABY BENAVIDEZ COSIGNER: URGENCY: STATUS: COMPLETED VistA Imaging - Scanned Document SCANNED DOCUMENT SIGNATURE NOT REQUIRED Electronically Filed: 01/31/2024 by: JANICE BENAVIDEZ Deal Architect JANICE BENAVIDEZRL SHANNAN VAZQUEZ
== END 2024-03-09 11:37 | disposition home or self-care (01) ==
PROVIDERS: PCP Internal Medicine; Visit Provider Urology
DX: C67.9 Malignant neoplasm of bladder, unspecified (principal); Z93.6 Other artificial openings of urinary tract status
CPT/HCPCS: 99214

== ENCOUNTER → 2024-03-09 10:45 | Outpatient (BNVA) | payer MEDICARE, BC, SELFPAY | PROVIDERS: PCP Internal Medicine; Visit Provider Urology | DX: C67.9 Malignant neoplasm of bladder, unspecified (principal); Z93.6 Other artificial openings of urinary tract status | CPT/HCPCS: 99212 ==

== ENCOUNTER 2025-03-08 10:10 | Outpatient (REF) | payer MEDICARE, BC, SELFPAY ==
--- OUTSIDE RECORDS SUMMARY | 2025-03-08 12:03 | XMS_ITS | Clinical Summary ---
Author Organization [facility] Address [address] [id number] Phone Care Team Providers Care Vacuum Conditioner Operator Name Role Phone Francisca Horan MD Primary Care Provider [phone] Allergies No known active allergies Medications amLODIPine (NORVASC) 10 MG tablet Take 10 mg by mouth daily. Active aspirin 81 MG EC tablet Take 81 mg by mouth daily. Active omeprazole (PRILOSEC) 20 MG tablet Take 20 mg by mouth daily. Active cholecalciferol (VITAMIN D3) 25 MCG (1,000 unit) tablet Take 1,000 Units by mouth daily. Active simvastatin (ZOCOR) 10 MG tablet Take 10 mg by mouth nightly at bedtime. Active Active Problems No known active problems Social History Tobacco Use Types Packs/Day Years Used Date Smoking Tobacco: Every Day Cigarettes Smokeless Tobacco: Never Tobacco Cessation:Ready to Q uit: Not Asked; Counseling Given: Not Answered Comments:Since Alcohol Use Standard Drinks/Week Comments Yes 0 (1 standard drink = 0.6 oz pure alcohol) 4-6 beers per day no dts every doesnt drink every day Education Answer Date Recorded Are you interested in more education? Not on chel e 07/17/2022 Are you concerned about learning? Not on file 07/17/2022 No 07/17/2022 No 07/17/2022 Digital Access Answer Date Recorded No 08/17/2022 No 08/17/2022 Reliable internet access at home? Not on file 08/17/2022 Device with a working camera? Not on file Sex and Gender Information Value Date Recorded Sex Assigned at Not on file Legal Sex Male 10:54 AM EDT Gender Identity Not on file Sexual Orientation Not on file Last Filed Vital Signs Vital Sign Reading Time Taken Comments Blood Pressure 145/73 03/03/2023 1:30 PM EST Pulse 80 03/03/2023 1:30 PM EST Temperature 36.8 C (98.2 F) 03/03/2023 1:30 PM EST Respiratory Rate 19 03/03/2023 1:30 PM EST Oxygen Saturation 95% 03/03/2023 1:30 PM EST Inhaled Oxygen Concentration - - Weight 73 kg (161 lb) 02/21/2023 10:49 AM EST Height 170.2 cm (5' 7 ) 02/21/2023 10:49 AM EST Body Mass Index 25.22 02/21/2023 10:49 AM EST Plan of Treatment Health Maintenance Due Date Last Done Comments LIPID PANEL 1947 DEPRESSION SCREENING 1959 SMOKING Hx and SMOKELESS TOBACCO SCREENING 11/30/1960 HEPATITIS C SCREENING 11/30/1965 PNEUMOCOCCAL VACCINES (50+ years) (1 of 2 - PCV) 11/30/1966 ZOSTER VACCINES (1 of 2) 11/30/1997 RSV VACCINE (1 - 1-dose 75+ series) 11/30/2022 INFLUENZA VACCINE (#1) 2024 , 03/21/2022, 12/31/2021, Additional history exists COVID-19 VACCINE (2024- season) 2024 01/11/2023, 12/31/2021, 07/02/2021, Additional history exists Adult Td,Tdap Booster 02/08/2026 02/09/2016 HEPATITIS A VACCINES Aged Out No long er eligible based on patient's age to complete this topic HIB VACCINES Aged Out No longer eligi ble based on patient's age to complete this topic MENINGOCOCCAL VACCINES (ACWY) Aged Out No longer eligible based on patient's age to complete this topic MENINGOCOCCAL VACCINES (B) Aged Out N o longer eligible based on patient's age to complete this topic Medical Devices Implanted Type Area Crack Off Person Device Identifier Shelf Expiration Date Model / Serial / Lot Lens Lens Bilateral: Eye Insurance MEDICARE PART A & B [facility] Member Subscriber Plan / Payer (Ef fective 2009-Present) Name:Jose D Briones Relation to Subscriber:Self Name:Jose D Briones Payer ID:[id number] (NAIC) Group ID:[id number] Type:[facility] Address: [facility] [id number] MEDICARE PART A & B [facility] Member Subscriber Plan / Payer (Ef fective 2009-Present) Name:Jose D Briones Relation to Subscriber:Self Name:Jose D Briones Payer ID:[id number] (NAIC) Group ID:[id number] Type:PPO Address: [id number] MEDICARE PART A & B [facility] MEDICARE PART A & B [facility] MEDICARE PART A & B [facility] Member Subscriber Plan / Payer (Ef fective 2009-Present) Name:Jose D Briones Relation to Subscriber:Self Name:Jose D Briones Payer ID:[id number] (NAIC) Group ID:[id number] Type:PPO Address: [address] MEDICARE PART A & B MEDICARE PART A & B [facility] MEDICARE PART A & B [facility] Member Subscriber Plan / Payer (Ef fective 2009-Present) Name:Jose D Briones Relation to Subscriber:Self Name:Jose D Briones Payer ID:[id number] (NAIC) Group ID:[id number] Type:PPO Address: [id number] MEDICARE PART A & B [facility] Care Teams Vacuum Conditioner Operator Relationship Specialty Start Date End Date Francisca Horan MD [address] [place] [id number] PCP - General Internal Medicine 11/28/20 Additional Source Comments The information contained in this document represents components of the legal health record. It is not the complete legal health record.[facility]
--- OUTSIDE RECORDS SUMMARY | 2025-03-08 12:03 | XMS_ITS | Encounter Summary ---
Author Organization [facility] Address [address] [facility] [address] [place] [address] Phone Care Team Providers Care Assessment Technician Name Role Phone Francisca Horan MD Primary Care Provider [phone] Encounter Details Date Type Department Care Team (Late st Contact Info) Description 10/28/2022 Procedure Pass OR Admitting Dept - Virtual Department [address] [place] [id number] Social History Tobacco Use Types Packs/Day Years Used Date Smoking Tobacco: Every Day Cigarettes Smokeless Tobacco: Never Alcohol Use Standard Drinks/Week Comments Yes 0 [...] on file Sexual Orientation Not on file documented as of this encounter Plan of Treatment Not on file documented as of this encounter Visit Diagnoses Not on filedocumented in this encounter Care Teams Assessment Technician Relationship Specialty Start Date End Date Francisca Horan MD [address] [place] [id number] PCP - General Internal Medicine 11/28/20 documented as of this encounter Additional Source Comments The information contained in this document represents components of the legal health record. It is not the complete legal health record.[facility]
--- OUTSIDE RECORDS SUMMARY | 2025-03-08 12:03 | XMS_ITS | Encounter Summary ---
Author Organization [facility] Address [address] [facility] [address] [place] [phone] Phone Care Team Providers Care Fire Boat Engineer Name Role Phone Francisca Horan MD Primary Care Provider [phone] Encounter Details Date Type Department Care Team (Late st Contact Info) Description 03/03/2023 Procedure Pass OR Admitting Dept - Virtual Department [address] [place] [address] Social History Tobacco Use Types Packs/Day Years Used Date Smoking Tobacco: Every Day Cigarettes Smokeless Tobacco: Never Comments:Since Alcohol Use Standard Drinks/Week Comments Yes [...] on filedocumented in this encounter Care Teams Fire Boat Engineer Relationship Specialty Start Date End Date Francisca Horan MD [address] [place] [id number] PCP - General Internal Medicine 11/28/20 documented as of this encounter Additional Source Comments The information contained in this document represents components of the legal health record. It is not the complete legal health record.[facility]
== END 2025-03-08 10:11 | disposition home or self-care (01) ==
LOC: HO.LAB 10:10
PROVIDERS: PCP Internal Medicine; Visit Provider Urology
DX: C67.9 Malignant neoplasm of bladder, unspecified (principal); N39.0 Urinary tract infection, site not specified; Z93.6 Other artificial openings of urinary tract status
CPT/HCPCS: 81003; 88112; 99212

== ENCOUNTER 2025-03-08 10:10 | Outpatient (AMB) | payer MEDICARE, BC, SELFPAY ==
--- OUTSIDE RECORDS SUMMARY | 2025-03-06 14:15 | XMS_ITS | Encounter Summary ---
Author Organization [facility] Address [address] [place] [address] Care Team Providers Care Clay Pigeon Setter Name Role Phone Kenneth, Stacy Lola [facility] Primary Care Provi yoselin Reason for Visit * Reason Comments colon mass * Consultation (Routine) - Pending Review Specialty Diagnoses / Procedures Referred By Contac t Referred To Contact Diagnoses Polyp of colon Procedures [place] CONSULTATION OFFICE NEW/ESTAB PATIENT 30 MIN Tommie Mcbride PA [address] [place] [address] Phone: tel: fax: Zuly Garza MD [address] [address] Phone: tel: fax: Referral ID Status Reason Start Date Expiration Date V isits Requested Visits Authorized [id number] Pending Review 03/06/2025 03/06/[phone] Encounter Details Date Type Department Care Team (Late st Contact Info) Description 03/06/2025 2:15 PM EST Consult Bariatric Surgery - [place] [address] [address] Zuly Garza MD [address] [place] [address] Social History Tobacco Use Types Packs/Day Years Used Date Smoking Tobacco: Every Day Cigarettes 1 50.5 Started: 09/11/1974 Smokeless Tobacco: Current Alcohol Use Standard Drinks/Week Comments Yes 35 (1 standard drink = 0.6 oz pu re alcohol) Interpersonal Safety Answer Date Record ed Physical Abuse Unrecognized value 09/11/2024 Verbal Abuse Unrecognized value 09/11/2024 Sex and Gender Information Value Date Recorded Sex Assigned at Male 10/22/2024 2:26 PM EDT Legal Sex Male 5:00 AM EST Gender Identity Male 10/22/2024 2:26 PM EDT Sexual Orientation Straight 10/22/2024 2: 26 PM EDT documented as of this encounter Last Filed Vital Signs Vital Sign Reading Time Taken Comments Blood Pressure 169/82 03/06/2025 2:27 PM EST Pulse 78 03/06/2025 2:27 PM EST Temperature 36.7 C (98.1 F) 03/06/2025 2:27 PM EST Respiratory Rate - - Oxygen Saturation - - Inhaled Oxygen Concentration - - Weight 73.8 kg (162 lb 9.6 oz) 03/06/2025 2:27 P M EST Height 167.6 cm (5' 6 ) 03/06/2025 2:27 PM EST Body Mass Index 26.24 03/06/2025 2:27 PM EST documented in this encounter Ordered Prescriptions Prescription Sig Dispense Quantity Refills Last Filled Start Date End Date polyethylene glycol (GoLYTELY) 236-22.74-6.74 -5.86 gram solution Starting at noon on day prior to procedure drink 8 ounces (240 mL) every 30 minutes until all gone or stools are clear. May add flavor packet. 4000 mL 03/06/2025 neomycin (MYCIFRADIN) 500 mg tablet Take two tablets (1000 mg) by mouth at 5-7pm and again at around 10-11pm on the day prior to surgery 4 tablet 03/06/2025 metroNIDAZOLE (FLAGYL) 500 mg tablet Take one tablet (500 mg) by mouth at 5-7pm and again at around 10-11pm on the day prior to surgery. Do not use mouth wash or consume alcohol until 48 hours after last dose 2 each 03/06/2025 documented in this encounter Plan of Treatment Upcoming Encounters Date Type Department Care Team (Late st Contact Info) Description 10/22/2025 9:30 AM EDT Office Visit Vascular Surgery - [address] [place] [address] Christina Sainz PA [address] [place] [phone] Scheduled Procedures Name Priority Associated Diagnoses Date/Ti me COLECTOMY RIGHT ROBOT Adenomatous polyp of transverse colon documented as of this encounter Goals Goal Patient Goal Type Associated Problems Recent Progress Patient-Stated? Author Autogenera alex Goal Care Plan Autogenerated Problem No Zuly Garza MD documented as of this encounter Visit Diagnoses Not on filedocumented in this encounter Historical Medications * This list may reflect changes made after this encounter. lisinopriL (PRINIVIL,ZESTRIL ) 10 mg tablet Take 1 tablet (10 mg total) by mouth 1 (one) time each day. added in this encounter Additional Health Concerns Active Problems Noted Date Diagnosed Date Autogenerated Problem 03/06/2025 documented as of this encounter Care Teams Clay Pigeon Setter Relationship Specialty Start Date End Date Stacy Cooper FNP [address] [place] [phone] PCP - General Family Medicine 10/22/24 documented as of this encounter
--- NOTE | 2025-03-08 10:26 | A.OFFVIS_ITS ---
Intake Visit Reasons: 1Y UA Follow Up(Bladder Ca) Intake Note: Reason for Visit: 1Y UA Follow up (Bladder Ca Cystectomy) Urology Meds: None Blood Thinners: None Labs: Last PSA- <0.05 (2018) Imaging: None Last PVR: None Employee Benefits Specialist Required: No Allergies No Known Allergies Allergy (Verified 03/08/25 10:27) HPI Comments Details: Jose D is a very pleasant male. He is a patient of Dr. Horan. He is seen for the following urologic conditions - bladder cancer - recurrent pyelonephritis Yearly follow-up No episodes of infection Still has ciprofloxacin Stoma looks pink and effective Urine sent for cytology Plan follow-up ultrasound Since last year stoma care has improved using SureSeal to prevent leak Bladder cancer - cystectomy 2014 cystectomy for high-grade bladder cancer PSA 11/06 <0.1, 10/09 <0.1 Stoma looks pink and extended Minimal issues with care Still smoking Imaging - 03/13 renal ultrasound cysts on right kidney otherwise no hydronephrosis Main problem is pyelonephritis which occurs every 12 months also Typically responsive to Bactrim PFSH Surgical History Hx of parotidectomy Social History Patient Tobacco Use Status: Current everyday Tobacco user Tobacco use type: Cigarette Review of Systems Const Denies chills and Denies fever(s) Card Reports no additional complaints and Denies syncope Resp Denies cough GI Denies abdominal pain and Denies heartburn Reports as per HPI and Denies change in libido Neuro Denies syncope Psych Denies change in libido Endo Denies change in libido Physical Exam Const General: cooperative, healthy appearing, comfortable and no acute distress Orientation/consciousness: patient oriented x3 HEENT Face and sinus: Yes normal facial exam Mouth: moist mucous membranes Neck Neck: Yes normal visual inspection, Yes full ROM and Yes trachea midline Chest Chest palpation & inspection: normal inspection of the chest Resp Effort & Inspection: normal respiratory effort, able to speak in complete sentences and no respiratory distress GI Inspection: Yes normal to inspection Back/Spine/Pelvis Cervical Spine: normal cervical lordosis Thoracic/Lumbar Spine: thoracic and lumbar spine normal to inspection Skin General skin exam: no rashes or lesions noted Neuro General: patient oriented x3, gait normal, tone normal and moves all extremities Extrem General: Yes normal to inspection and Yes capillary refill normal Results AMB Urinalysis, Automated UA Leukoctes 500 Isra/uL Last Edit by Lupis Tipton [facility] on 03/08/25 10:34 UA Nitrite Positive Last Edit by Lupis Tipton A on 03/08/25 10:34 UA Urobilinogen 0.2 mg/dL Last Edit by Lupis Tipton A on 03/08/25 10:3 4 UA Protein 30 mg/dL Last Edit by Lupis Tipton A on 03/08/25 10:34 UA pH 7.0 Last Edit by Lupis Tipton [facility] on 03/08/25 10:34 UA Blood 10 Chi/uL Last Edit by Lupis Tipton [facility] on 03/08/25 10:34 UA Specific [place] 1.010 Last Edit by Lupis Tipton [facility] on 03/08/25 10: 34 UA Ketone Negative Last Edit by Lupis Tipton [facility] on 03/08/25 10:34 UA Bilirubin 0 mg/dL Last Edit by Lupis Tipton [facility] on 03/08/25 10:34 UA Glucose 0 mg/dL Last Edit by Lupis Tipton [facility] on 03/08/25 10:34 Results Reviewed Results Reviewed: Laboratory Last Values Urine pH (Auto) 7.0 03/08/25 10:28 Specific [place] (Auto) 1.010 03/08/25 10:28 Urine Protein (Auto) 30 mg/dL 03/08/25 10:28 Glucose (UA)(Auto) 0 mg/dL 03/08/25 10:28 Urine Ketones (Auto) Negative 03/08/25 10:28 Urine Blood (Auto) 10 Chi/uL 03/08/25 10:28 Urine Nitrite (Auto) Positive 03/08/25 10:28 Urine Bilirubin (Auto) 0 mg/dL 03/08/25 10:28 Urine Urobilinogen (Auto) 0.2 mg/dL 03/08/25 10:28 Leukocyte Esterase (Auto) 500 Isra/uL 03/08/25 10:28 Assessment & Plan Assessment & Plan (1) Bladder cancer: Comment: Cystectomy 2015 Code(s): C67.9 - Malignant neoplasm of bladder, unspecified Category: Medical (2) Complicated urinary tract infection: Code(s): N39.0 - Urinary tract infection, site not specified Category: Medical (3) Presence of urostomy: Code(s): Z93.6 - Other artificial openings of urinary tract status Category: Medical Plan Twelve month follow-up renal ultrasound Orders: Orders AMB Urinalysis Automated Today Z13.9 - Encounter for screening, unspecified Urine Cytology Today C67.9 - Malignant neoplasm of bladder, unspecified US renal BI 12 Months N39.0 - Urinary tract infection, site not specified Patient Instructions: This note is constructed using voice recognition software. While every effort has been made to ensure accuracy heel sander errors may have been included. Imaging studies, laboratory and physical exam results were discussed and reviewed in detail. No major barriers to patient understanding were identified. An opportunity to ask questions regarding the treatment plan was provided. All questions were answered. The patient expressed understanding and agreement with the above treatment plan. The patient is aware they should contact our office by phone for worsening of their current condition or the appearance of new urologic symptoms. Compliance is encouraged with any medications and followup testing that is ordered. It is a privilege to participate in the urologic care of your patient. If you have any questions or concerns regarding treatment for the above conditions, or other urologic issues, please do not hesitate to contact me. The office telephone contact is [phone]. Sincerely, Dr Brien Del Valle MD, [facility] - Urology Compassionate Specialist Care for the Genitourinary System Coding Level of Care Code Est Pt Level 4 (14242) Add On Problem Visit Only Diagnoses Bladder cancer C67.9 Complicated urinary tract infection N39.0 Presence of urostomy Z93.6
--- OUTSIDE RECORDS SUMMARY | 2025-03-08 11:28 | XMS_ITS ---
Author Name [facility] Organization Unknown Care Team Organization Name Specialty Phone Email Start Date End Da te [facility] NULL Primary Care 10/06/2023 12/28/2023 [facility] NULL Primary Care 03/02/2023 12/28/2023 [facility] Diana Fournier Primary Care 06/22/202212/27
--- OUTSIDE RECORDS SUMMARY | 2025-03-08 11:28 | XMS_ITS | Clinical Summary ---
Author Organization 175 [facility] Address [address] [place] [address] Phone Care Team Providers Care [employer] Name Role Phone [facility] Provi yoselin Allergies No known active allergies Medications amLODIPine (NORVASC) 10 mg tablet Take 1 Tablet by mouth daily. Active omeprazole (PRILOSEC) 20 mg tablet,delayed release (DR/EC) Take by mouth. Active sildenafiL (VIAGRA) 100 mg tablet Take 1 Tablet by mouth as needed. Active aspirin 81 mg EC tablet Take 1 Tablet by mouth daily. Active atorvastatin (LIPITOR) 20 mg tablet Take 20 mg by mouth daily. Active cholecalciferol (VITAMIN D-3) 250 mcg (10,000 unit) capsule Take 1 Capsule by mouth daily. Active polyethylene glycol (Golytely) 236-22.74-6.74 -5.86 gram solution Take 4L by mouth once for one dose. May substitue any PEG. Starting at 6PM the night before your procedure drink 1 8oz glasses at your own pace until you complete half of the gallon. Finish 2nd half of the gallon 5 hours before your procedure. 4000 mL 5 Active polyethylene glycol (Golytely) 236-22.74-6.74 -5.86 gram solution Take 4L by mouth once for one dose. May substitue any PEG. Starting at 6PM the night before your procedure drink 1 8oz glasses at your own pace until you complete half of the gallon. Finish 2nd half of the gallon 5 hours before your procedure. 4000 mL 5 Active bisacodyL (DULCOLAX) 5 mg EC tablet Take 2 tablets by mouth right before beginning bowel prep. See instructions provided by the office 2 tablet 5 Active cholecalciferol (VITAMIN D-3) 25 mcg (1,000 unit) tablet Take 1 tablet (1,000 Units total) by mouth. 3 Active hydroCHLOROthia zide (HYDRODIURIL) 25 mg tablet Take 1 tablet (25 mg total) by mouth 1 (one) time each day for 20 days. 20 tablet 5 Active Additional Information Patient not taking.Reported on 03/06/2025 lisinopriL (PRINIVIL,ZESTR IL) 10 mg tablet Take 1 tablet (10 mg total) by mouth 1 (one) time each day. Active metroNIDAZOLE (FLAGYL) 500 mg tablet Take one tablet (500 mg) by mouth at 5-7pm and again at around 10-11pm on the day prior to surgery. Do not use mouth wash or consume alcohol until 48 hours after last dose 2 each 5 Active neomycin (MYCIFRADIN) 500 mg tablet Take two tablets (1000 mg) by mouth at 5-7pm and again at around 10-11pm on the day prior to surgery 4 tablet 5 Active polyethylene glycol (GoLYTELY) 236-22.74-6.74 -5.86 gram solution Starting at noon on day prior to procedure drink 8 ounces (240 mL) every 30 minutes until all gone or stools are clear. May add flavor packet. 4000 mL 5 Active Active Problems Problem Noted Date Diagnosed Date Aortic stenosis 03/19/2024 Overview (03/19/2024): Last Assessment & Plan: Mild aortic stenosis on recent echocardiogram. We will plan for repeat echocardiogram in 2 years or 2024 Bladder cancer 03/19/2024 Chest discomfort 03/19/2024 Overview (03/19/2024): Last Assessment & Plan: Isolated episode of chest discomfort. This has not recurred and his stress test demonstrated excellent functional capacity without evidence of ischemic defect. I would continue at this time with medical therapy which includes aspirin, statin and blood pressure control. Given his known vascular disease and smoking history, he certainly is at risk for developing coronary artery disease in the future. He is aware of the signs symptoms of coronary insufficiency and will report them if they occur. Hyperlipidemia 03/19/2024 Overview (03/19/2024): Last Assessment & Plan: Continue statin therapy. His lipids on last check were well controlled. Prostate CA 03/19/2024 PAD (peripheral artery disease) 10/15/2018 Bilateral carotid artery stenosis 08/05/2018 Overview (03/19/2024): Last Assessment & Plan: Status post left CEA without significant right-sided carotid artery disease. Continue current medical therapy. Encounters Date Type Department Care Team Description 03/06/2025 2:15 PM EST Consult Bariatric Surgery - [address] [place] [address] Zuly Garza MD from Last 3 Months Surgical History Surgery Date Site/Laterality Comments CAROTID ENDARTERECTOMY 09/2018 Left PROCEDURE: HISTORICAL CAROTID ENDART; COMMENT: Dr. Jurado BLADDER SURGERY COMPLETE REMOVAL WITH POUCH MADE UROSTOMY COLONOSCOPY Medical History Medical History Date Comments Prostate CA (CMS/HCC V24, CMS/HCC V28) DX:Prostate CA (HCC) Bladder cancer (CMS/HCC V24, CMS/HCC V28) DX:Bladder cancer (HCC) Essential hypertension DX:Essent ial hypertension Hyperlipidemia DX:Hyperlipidemi a Social History Tobacco Use Types Packs/Day Years Used Date Smoking Tobacco: Every Day Cigarettes 1 50.5 Started: 09/11/1974 Smokeless Tobacco: Current Tobacco Cessation:Ready to Q uit: Not Asked; Counseling Given: Not Answered Alcohol Use Standard Drinks/Week Comments Yes 35 [...] Orientation Straight 10/22/2024 2: 26 PM EDT Last Filed Vital Signs Vital Sign Reading Time Taken Comments Blood Pressure 169/82 03/06/2025 2:27 PM EST Pulse 78 03/06/2025 2:27 PM EST Temperature 36.7 C (98.1 F) 03/06/2025 2:27 PM EST Respiratory Rate 16 10/28/2024 4:45 PM EDT Oxygen Saturation 96% 10/28/2024 4:45 PM EDT Inhaled Oxygen Concentration - - Weight 73.8 kg (162 lb 9.6 oz) 03/06/2025 2:27 P M EST Height 167.6 cm (5' 6 ) 03/06/2025 2:27 PM EST Body Mass Index 26.24 03/06/2025 2:27 PM EST Plan of Treatment Upcoming Encounters Date Type Department Care Team (Late st Contact Info) Description 10/22/2025 9:30 AM EDT Office Visit Vascular Surgery - [facility] [address] [place] [address] Christina Sainz PA [address] [place] [phone] Scheduled Procedures Name Priority Associated Diagnoses Date/Ti me COLECTOMY RIGHT ROBOT Adenomatous polyp of transverse colon Health Maintenance Due Date Last Done Comments Hepatitis A Vaccines (1 of 2 - Risk 2-dose series) 11/30/1966 Pneumococcal Vaccine: 50+ Years (1 of 2 - PCV) 11/30/1966 Zoster Vaccines (1 of 2) 11/30/1966 Cholesterol Screening (Lipid Panel) 02/27/2022 Hepatitis C Screening 02/27/2022 Lung Cancer Screening (Low Dose CT) 02/27/2022 Medicare Annual Wellness Visit 02/27/2022 Social Influencers of Health Screening 02/27/2022 RSV Immunization Adult Patients (1 - 1-dose 75+ series) 11/30/2022 Depression Screening 03/21/2024 COVID-19 Vaccine (9 - Moderna risk season) 2025 12/11/2024, 12/21/2023, 01/11/2023, Additional history exists Falls Risk Assessment 09/11/2025 09/11/2024 Hypertension/CHF/CAD Annual BMP Blood Test 10/28/2025 10/28/2024, 06/08/2013 DTaP,Tdap,and Td Vaccines (5 - Td or Tdap) 02/08/2026 02/09/2016, 02/09/2016, 02/09/2016, Additional history exists Colorectal Cancer Screening: Colonoscopy Discontinued 09/11/2024, 08/14/2024 Influenza Vaccine Completed 12/11/2024, , 01/11/2023, Additional history exists HIB Vaccines Aged Out No longer eligi ble based on patient's age to complete this topic HPV Vaccines Aged Out No longer eligi ble based on patient's age to complete this topic Hepatitis B Vaccines Aged Out No long er eligible based on patient's age to complete this topic IPV Vaccines Aged Out No longer eligi ble based on patient's age to complete this topic MMR Vaccines Aged Out No longer eligi ble based on patient's age to complete this topic Meningococcal ACWY Vaccine Aged Out N o longer eligible based on patient's age to complete this topic Meningococcal B Vaccine Aged Out No l onger eligible based on patient's age to complete this topic RSV Immunization Patients Under 20 months Aged Out No longer eligible based on patient's age to complete this topic Varicella Vaccines Aged Out No longer eligible based on patient's age to complete this topic Goals Goal Patient Goal Type Associated Problems Recent Progress Patient-Stated? Author Obinna johnson Goal Care Plan Autogenerated Problem No Zuly Garza MD Medical Devices Implanted Type Area Software Computer Specialist Device Identifier Shelf Expiration Date Model / Serial / Lot Agent Hydrogel Hemostat Purastat 3ml - [id number] - [id number] Implanted:Qty: 1 on 08/14/2024 at [facility] Hemostasis N/A: Colon 3D [employer] [id number] 11/27/2028 621-062 / [id number] / [id number] Procedures Procedure Name Priority Date/Time Associated Diagnosis Comments COMPREHENSIVE METABOLIC PANEL STAT 10/28/2024 5:03 PM EDT COLONOSCOPY Routine 09/11/2024 4:25 PM EDT History of colon polyps from Last 3 Months or Most Recently Relevant to Health Maintenance Results * (ABNORMAL) Comprehensive Metabolic Panel (CMP) (10/28/2024 5:03 PM EDT) Sodium 139 133 - 145 mmol/L LAB CHEMISTRY METHOD 10/28/2024 5:56 PM [facility] Potassium 4.2 3.5 - 5.5 mmol/L LAB CHEMISTRY METHOD 10/28/2024 5:56 PM [facility] Chloride 108 96 - 110 mmol/L LAB CHEMISTRY METHOD 10/28/2024 5:56 PM [facility] CO2 24 21 - 32 mmol/L LAB CHEMISTRY METHOD 10/28/2024 5:56 PM [facility] Anion Gap 7 3 - 11 LAB CHEMISTRY METHOD 10/28/2024 5:56 PM [facility] Glucose 111(H) 70 - 100 mg/dL LAB CHEMISTRY METHOD 10/28/2024 5:56 PM [facility] BUN 20 5 - 25 mg/dL LAB CHEMISTRY METHOD 10/28/2024 5:56 PM [facility] Creatinine 1.35(H) 0.70 - 1.30 mg/dL LAB CHEMISTRY METHOD 10/28/2024 5:56 PM [facility] eGFR 54(L) >=60 mL/min/1. 73m2 LAB CHEMISTRY METHOD 10/28/2024 5:56 PM [facility] Comment:Calculation based on the Chronic Kidney Disease Epidemiology Collaboration (CKD-EPI) equation refit without adjustment for race. BUN/Creatinine Ratio 14.8 LAB CHEMISTRY METHOD 10/28/2024 5:56 PM [facility] Calcium 8.7 8.5 - 10.5 mg/dL LAB CHEMISTRY METHOD 10/28/2024 5:56 PM [facility] AST (SGOT) 19 10 - 42 unit/L LAB CHEMISTRY METHOD 10/28/2024 5:56 PM [facility] ALT (SGPT) 17 10 - 60 unit/L LAB CHEMISTRY METHOD 10/28/2024 5:56 PM EDT [facility] Alkaline Phosphatase 95 42 - 121 unit/L LAB CHEMISTRY METHOD 10/28/2024 5:56 PM EDT [facility] Total Protein 7.4 6.0 - 8.0 g/dL LAB CHEMISTRY METHOD 10/28/2024 5:56 PM EDT [facility] Albumin 3.8 3.2 - 5.0 g/dL LAB CHEMISTRY METHOD 10/28/2024 5:56 PM EDT [facility] Total Bilirubin 0.3 0.0 - 1.4 mg/dL LAB CHEMISTRY METHOD 10/28/2024 5:56 PM EDT [facility] Blood Venous blood specimen / Unknown Venipuncture / Unknown 10/28/2024 5:03 PM EDT 10/28/2024 5:23 PM EDT Johnnie Garcia MD LAB BLOOD ORDERABLES Rosalba l Result [facility] [address] [place] [address], * [place] [facility] [place] [facility]COPY (09/11/2024 4:25 PM EDT) Anatomical Region Laterality Modality Endoscopy 09/11/2024 3:36 PM EDT Impressions 09/11/2024 4:22 PM EDT - One 20 mm polyp in the transverse colon, removed with mucosal resection. Unsuccessful polyp resection. Injected. Tattooed. - Mucosal resection was performed. Resection was unsuccessful. No tissue was resected. Recommendation: - Refer to a surgeon at appointment to be scheduled. Narrative 09/11/2024 4:22 PM EDT [facility] Patient Name: Jose D Briones Procedure Date: 09/11/2024 3:36 PM Date of : 1945 Age: 78 Gender: Male Note Status: Finalized Attending MD: Jeffery Ayala MD, Procedure Date No Time: 09/11/2024 Procedure: Colonoscopy Indications: Surveillance: Personal history of incomplete removal of large sessile adenoma on last colonoscopy (less than 6 months ago) Providers: Jeffery Ayala MD Referring MD: Jeffery Ayala MD Medicines: Monitored Anesthesia Care Complications: No immediate complications. Estimated blood loss: Minimal. Estimated Blood Loss: Estimated blood loss was minimal. Procedure: Pre-Anesthesia Assessment: - Prior to the procedure, a History and Physical was performed, and patient medications and allergies were reviewed. The patient is competent. The risks and benefits of the procedure and the sedation options and risks were discussed with the patient. All questions were answered and informed consent was obtained. Patient identification and proposed procedure were verified by the physician, the nurse, the test puller and the legal technician in the pre-procedure area in the endoscopy suite. Mental Status Examination: alert and oriented. Airway Examination: normal oropharyngeal airway and neck mobility. Respiratory Examination: clear to auscultation. CV Examination: normal. Prophylactic Antibiotics: The patient does not require prophylactic antibiotics. Prior Anticoagulants: The patient has taken no anticoagulant or antiplatelet agents. ASA Grade Assessment: IV - A patient with severe systemic disease that is a constant threat to life. After reviewing the risks and benefits, the patient was deemed in satisfactory condition to undergo the procedure. The anesthesia plan was to use general anesthesia. Immediately prior to administration of medications, the patient was re-assessed for adequacy to receive sedatives. The heart rate, respiratory rate, oxygen saturations, blood pressure, adequacy of pulmonary ventilation, and response to care were monitored throughout the procedure. The physical status of the patient was re-assessed after the procedure. After I obtained informed consent, the scope was passed under direct vision. Throughout the procedure, the patient's blood pressure, pulse, and oxygen saturations were monitored continuously. The Colonoscope was introduced through the anus and advanced to the cecum, identified by appendiceal orifice and ileocecal valve. The colonoscopy was performed without difficulty. The patient tolerated the procedure well. The quality of the bowel preparation was good. Findings: The perianal and digital rectal examinations were normal. A 20 mm polyp was found in the transverse colon. The polyp was flat. Area was successfully injected with 5 mL saline for lesion assessment, but the lesion could not be lifted adequately. Area was tattooed with an injection of 5 mL of Spot (carbon black). Preparations were made for mucosal resection. Saline was injected to raise the lesion. Band ligator and snare mucosal resection was performed. Resection was unsuccessful. No tissue was resected. Estimated blood loss was minimal. Procedure Code(s): --- Professional --- 62092, Colonoscopy, flexible; with endoscopic mucosal resection Diagnosis Code(s): --- Professional --- D12.6, Benign neoplasm of colon, unspecified D12.3, Benign neoplasm of transverse colon (hepatic flexure or splenic flexure) CPT copyright 2020 [employer]. All rights reserved. The codes documented in this report are preliminary and upon data coder operator review may be revised to meet current compliance requirements. Jeffery Ayala MD 09/11/2024 4:22:40 PM This report has been signed electronically.Jeffery Ayala MD Number of Addenda: 0 Note Initiated On: 09/11/2024 3:36 PM Scope Withdrawal Time: 0 hours 30 minutes 58 seconds Scope In: 3:38:09 PM Scope Out: 4:18:13 PM Endoscopy Department at [facility] - [address] [place] [id number] Procedure Note Jeffery Ayala MD - 09/11/2024 [facility] Patient Name: Jose D Briones Procedure Date: 09/11/2024 3:36 PM Date of : 1945 Age: 78 Gender: Male Note Status: Finalized Attending MD: Jeffery Ayala MD, Procedure Date No Time: 09/11/2024 Procedure: Colonoscopy Indications: Surveillance: Personal history of incompleteremoval of large sessile adenoma on last colonoscopy (less than 6 months ago) Providers: Jeffery Ayala MD Referring MD: Jeffery Ayala MD Medicines: Monitored Anesthesia Care Complications: No immediate complications. Estimated blood loss: Minimal. Estimated Blood Loss: Estimated blood loss was minimal. Procedure: Pre-Anesthesia Assessment: - Prior to the procedure, a History and Physicalwas performed, and patient medications and allergieswere reviewed. The patient is competent. The risks and benefits of the procedure and the sedation optionsand risks were discussed with the patient. Allquestions were answered and informed consent was obtained. Patient identification and proposed procedure were verified by the physician, the nurse, theanesthetist and the legal technician in the pre-procedure area in the endoscopy suite. Mental Status Examination: alertand oriented. Airway Examination: normal oropharyngeal airway and neck mobility. Respiratory Examination: clear to auscultation. CV Examination: normal. Prophylactic Antibiotics: The patient does notrequire prophylactic antibiotics. Prior Anticoagulants: The patient has taken no anticoagulant or antiplatelet agents. ASA Grade Assessment: IV - A patient with severe systemic disease that is a constant threatto life. After reviewing the risks and benefits, the patient was deemed in satisfactory condition to undergo the procedure. The anesthesia plan was touse general anesthesia. Immediately prior to administration of medications, the patient was re-assessed for adequacy to receive sedatives. The heart rate, respiratory rate, oxygen saturations, blood pressure, adequacy of pulmonary ventilation,and response to care were monitored throughout the procedure. The physical status of the patient was re-assessed after the procedure. After I obtained informed consent, the scope was passed under direct vision. Throughout theprocedure, the patient's blood pressure, pulse, and oxygen saturations were monitored continuously. The Colonoscope was introduced through the anus and advanced to the cecum, identified by appendiceal orifice and ileocecal valve. The colonoscopy was performed without difficulty. The patient tolerated the procedure well. The quality of the bowel preparation was good. Findings: The perianal and digital rectal examinations were normal. A 20 mm polyp was found in the transverse colon.The polyp was flat. Area was successfully injected with5 mL saline for lesion assessment, but the lesioncould not be lifted adequately. Area was tattooed with an injection of 5 mL of Spot (carbon black).Preparations were made for mucosal resection. Saline wasinjected to raise the lesion. Band ligator and snare mucosal resection was performed. Resection wasunsuccessful. No tissue was resected. Estimated blood loss was minimal. Procedure Code(s): --- Professional --- 58938, Colonoscopy, flexible; with endoscopicmucosal resection Diagnosis Code(s): --- Professional --- D12.6, Benign neoplasm of colon, unspecified D12.3, Benign neoplasm of transverse colon (hepatic flexure or splenic flexure) CPT copyright 2020 [employer]. All rights reserved. The codes documented in this report are preliminary and upon data coder operator reviewmay be revised to meet current compliance requirements. Jeffery Ayala MD 09/11/2024 4:22:40 PM This report has been signed electronically.Jeffery Ayala MD Number of Addenda: 0 Note Initiated On: 09/11/2024 3:36 PM Scope Withdrawal Time: 0 hours 30 minutes 58 seconds Scope In: 3:38:09 PM Scope Out: 4:18:13 PM Endoscopy Department at [address] [id number] IMPRESSION: - One 20 mm polyp in the transverse colon, removed with mucosal resection. Unsuccessful polypresection. Injected. Tattooed. - Mucosal resection was performed. Resection was unsuccessful. No tissue was resected. Recommendation: - Refer to a surgeon at appointment to bescheduled. Jeffery Ayala MD GI~PROCEDURE ORDERABLES Fin al Result from Last 3 Months or Most Recently Relevant to Health Maintenance Additional Health Concerns Active Problems Noted Date Diagnosed Date Autogenerated Problem 03/06/2025 Insurance [facility] MEDICARE [facility] Care Teams [employer] Relationship Specialty Start Date End Date Stacy Cooper FNP [address] [place] [id number] PCP - General Family Medicine 10/22/24
== END 2025-03-08 10:59 | disposition home or self-care (01) ==
LOC: HO.HUSH 10:10
PROVIDERS: PCP Internal Medicine; Visit Provider Urology
DX: C67.9 Malignant neoplasm of bladder, unspecified (principal); N39.0 Urinary tract infection, site not specified; Z93.6 Other artificial openings of urinary tract status; Z13.9 Encounter for screening, unspecified
CPT/HCPCS: 99214; G2211